=== PATIENT | female | born 1975 | race Caucasian/White ===

== ENCOUNTER 2024-10-12 15:34 | Outpatient (REF) | payer OTHER, SELFPAY ==
--- OUTSIDE RECORDS SUMMARY | 2024-10-12 15:40 | XMS_ITS | Encounter Summary ---
Author Organization [facility] Address [address] [place] [address] Care Team Providers Care Satellite Project Site Monitor Name Role Phone Cris Rivera MD Primary Care Provider [phone] Reason for Visit * Reason Onset Date Comments Medication 06/05/2022 Encounter Details Date Type Department Care Team Description 06/05/2022 Refill Gastroenterology [facility] [address] [facility] [address] [place] [id number] Santy Borjas MD Medication Social History Tobacco Use Types Packs/Day Years Used Date Smoking Tobacco: Every Day Cigarettes 0.8 15 Smokeless Tobacco: Never Comments:Advised to quit by Dr. Chen on 11/07/2007 & 9.. Alcohol Use Standard Drinks/Week Comments Yes 0 (1 standard drink = 0.6 oz pur e alcohol) history abuse Alcohol Habits Answer Date Recorded How often do you have a drink containing alcohol ? Never 06/06/2021 How many drinks containing a lcohol do you have on a typical day when you are drinking? 5 or 6 06/06/2021 How often do you have six or more drinks on one occasion? Never 06/06/2021 Social Isolation Answer Date Recorded In a typical week, how many times do you talk on the phone with family, friends, or neighbors? More than three times a week 06/06/2021 How often do you get togethe r with friends or relatives? More than three times a week 06/06/2021 How often do you attend [facility] or [facility] day services? Never 06/06/2021 Do you belong to any clubs o r organizations such as congregational groups, unions, fraternal or athletic groups, or school groups? No 06/06/2021 How often do you attend meet ings of the clubs or organizations you belong to? Never 06/06/2021 Are you now , , , , never or living with a partner? 06/06/2021 Physical Activity Answer Date Recorded On average, how many days pe r week do you engage in moderate to strenuous exercise (like walking fast, running, jogging, dancing, swimming, biking, or other activities that cause a light or heavy sweat)? 0 days 06/06/2021 On average, how many minutes do you engage in exercise at this level? 0 min 06/06/2021 Stress Answer Date Recorded Do you feel stress - tense, restless, nervous, or anxious, or unable to sleep at night because your mind is troubled all the time - these days? Rather much 06/06/2021 Financial Resource Strain Answer Date R ecorded How hard is it for you to pa y for the very basics like food, housing, medical care, and heating? Not very hard 06/06/2021 Intimate Partner Violence Answer Date R ecorded Within the last year, have y ou been afraid of your partner or ex-partner? No 06/06/2021 Within the last year, have y ou been humiliated or emotionally abused in other ways by your partner or ex-partner? No Within the last year, have y ou been kicked, hit, slapped, or otherwise physically hurt by your partner or ex-partner? No 06/06/2021 Within the last year, have y ou been raped or forced to have any kind of sexual activity by your partner or ex-partner? No 06/06/2021 Food Insecurity Answer Date Recorded Within the past 12 months, y ou worried that your food would run out before you got money to buy more. Never true 06/06/2021 Within the past 12 months, t he food you bought just didn't last and you didn't have money to get more. Never true 06/06/2021 Transportation Needs Answer Date Record ed In the past 12 months, has l ack of transportation kept you from medical appointments or from getting medications? No 05/27 In the past 12 months, has l ack of transportation kept you from meetings, work, or getting things needed for daily living? No 06/06/2021 Housing Stability Answer Date Recorded In the last 12 months, was t here a time when you were not able to pay the mortgage or rent on time? No 06/06/2021 In the last 12 months, how many places have you lived? Not asked In the last 12 months, was t here a time when you did not have a steady place to sleep or slept in a [facility] (including now)? No 06/06/2021 Sex Assigned at Date Recorded Not on file Job Start Date Occupation Industry Not on file Not on file Not on file COVID-19 Exposure Response Date Recorded In the last 10 days, have yo u been in contact with someone who was confirmed or suspected to have Coronavirus/COVID-19? No / Unsure 2022 8:46 AM EST documented as of this encounter Plan of Treatment Not on file documented as of this encounter Visit Diagnoses Not on filedocumented in this encounter Care Teams Satellite Project Site Monitor Relationship Specialty Start Date End Date Cris Rivera MD [address] [place] [address] PCP - General 10/23/07 documented as of this encounter
--- OUTSIDE RECORDS SUMMARY | 2024-10-12 15:40 | XMS_ITS | Encounter Summary ---
Author Organization [facility] Address [address] [place] [address] Care Team Providers Care Yoga Instructor Name Role Phone Cris Rivera MD Primary Care Provider [phone] [phone] Encounter Details Date Type Department Care Team Description 08/07/2021 SCAN Medical Records [address] [place] [address] Abstract, Provider Incomplete defecation; Pelvic floor weakness in female Social History Tobacco Use Types Packs/Day Years [...] week 06/06/2021 How often do you attend [facility] or church services? Never 06/06/2021 Do you belong to any clubs o r organizations such as restorationist groups, unions, fraternal or athletic groups, or [...] place to sleep or slept in a retirement (including now)? No 06/06/2021 Sex Assigned at Date Recorded Not on file Job Start Date Occupation Industry Not on file Not on file Not on file COVID-19 Exposure Response Date Recorded In the last month, have you been in contact with someone who was confirmed or suspected to have Coronavirus / COVID-19? No / Unsure 07/27/2021 9:14 AM EST documented as of this encounter Plan of Treatment Not on file documented as of this encounter Procedures Procedure Name Priority Date/Time Associated Diagnosis Comments DEFECOGRAPHY (DYNAMIC RECTAL EXAMINATION) Routine 07/11/2021 Incomplete defecation Pelvic floor weakness in female documented in this encounter Results * DEFECOGRAPHY (DYNAMIC RECTAL EXAMINATION) (07/11/2021) Santy Borjas MD OUTSIDE RADIOLOGY documented in this encounter Visit Diagnoses Diagnosis Incomplete defecation Pelvic floor weakness in female Other specified genital prolapse documented in this encounter Care Teams Yoga Instructor Relationship Specialty Start Date End Date Cris Rivera MD [address] [place] [address] PCP - General 10/23/07 documented as of this encounter
--- OUTSIDE RECORDS SUMMARY | 2024-10-12 15:40 | XMS_ITS | Clinical Summary ---
Author Organization [facility] Address [address] [place] [address] Care Team Providers Care Front Desk Administrator Name Role Phone Cris Rivera MD Primary Care Provider [phone] [phone] Allergies No known active allergies Medications Medication Sig Dispensed Refills Start Date End Date Status MULTI-VITAMIN OR 1 daily 0 Active Acyclovir (ZOVIRAX) 5 % Cream Apply topically to affected area twice daily 15 g 2 09/24/2014 Active levonorgestrel (MIRENA) 20 MCG/24HR IUDIndications:Enco unter for insertion of intrauterine contraceptive device 1 Each by Intrauterine route Once. 1 Each 0 07/27/2021 07/01/2026 Active ALBUTEROL SULFATE 108 (90 Base) MCG/ACT Aero Soln Inhale 2 Puffs into the lungs every 4 hours as needed for Cough or Wheezing. 8.5 g 2 06/24/2023 Active clotrimazole-betame thasone (Lotrisone) cream Apply to area sparingly twice a day for up to two weeks 30 g 0 07/16/2023 Active atorvastatin (LIPITOR) 10 MG tablet Take 1 Tablet by mouth daily. 0 Active Zoster Vac Recomb Adjuvanted (Shingrix) 50 MCG/0.5ML Recon Susp Inject 1 Dose into the muscle Once. 1 Each 0 07/23/2023 Active Coenzyme Q10 (COQ-10 OR) Take by mouth. 0 Active fluticasone 50 MCG/ACT nasal spray 2 Sprays by Each Nare route daily for 360 days. 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 Family history of colonic polyps 022 History of alcohol abuse 06/06/2021 History of COVID-19 06/06/2021 Overview: May 01 2021 Hyperlipidemia 06/06/2021 Overview: ASCVD 6.1% 06/06/2021 Hypertension 04/18/2020 History of dysplastic nevus 07/20/2019 Overview: Dysplastic nevus 07/16 abdomen (moderate atypia) Fatty liver 01/14/2019 Overview: CT scan 01/08/2019 Elevation LFTs 04/2020 Family history of hemochromatosis 2013 Family history of breast cancer in male 04/04/2012 Overview: 04/09 - negative genetic screening of the patient Tobacco abuse 04/29/2009 Resolved Problems Problem Noted Date Resolved Date Anemia of 04/13/2008 07/22/2008 Supervision of other normal 11/07/2007 07/22/2008 Overview: 1. Delivery site: [facility]. [facility] 2. 08/01 ASCUS- neg HPV ; 10/01 colpo results pending, REPap post 3. 03/31/08 Flu vaccine 4. 04/13/08 Anemia-start ferrous gluconate once daily IMO update Papanicolaou smear of cervix with atypical squamous cells of undetermined significance (ASC-US) 03/29/2009 Immunizations Name Administration Dates Next Due COVID-19 (Pfizer) 03/13/2024, 2,10/15/2020, 021 COVID-19 (Pfizer) Pt Reported 10/15/2020, 021 Flu (Generic) 02/22/2011,04/29/2009,03/31/2008 Influenza (> 6 Months) 03/13/2024,2010,04/29/2009, 008 Influenza Vaccine-preservati ve Free-quadrivalent 4 Years 06/06/2021,02/09/2019 Shingrix (Recombinant zoster vaccine) 03/13/2024 Tdap 06/06/2021,11/30/2010 Family History * Patient is adopted Medical History Relation Name Comments No Known Problems Brother Cholesterol Level Father Hypertension Father Thyroid Disorder Father heart disease Father Stroke Maternal Grandfather at 50 Dementia Maternal Grandmother at 74 Diabetes Maternal Grandmother everybo dy on mother's side have dm, except mother Cancer, Other Mother cervical cance r Cholesterol Level Mother Diabetes Mother Hypertension Mother Emphysema Paternal Grandfather in his 60s Hypertension Paternal Grandfather CHF Paternal Grandmother of Mi at 65 CA Breast Uncle 1 ma male breast cancer Uncle 1 ma maternal uncle ~ 50 Melanoma Uncle 2 another materna l uncle in his 60s CA Colon Negative Hx CA Ovarian Negative Hx CA Prostate Negative Hx CA of Pancreas Negative Hx Uterine Cancer Negative Hx Relation Name Status Comments Brother Alive three half brot hers Father Alive Maternal Grandfather Maternal Grandmother Mother Alive Paternal Grandfather Paternal Grandmother Son 1 Alive Son 2 Alive Uncle 1 ma Alive Uncle 2 Social History Tobacco Use Types Packs/Day Years Used Date Smoking Tobacco: Every Day Cigarettes 0.8 15 Smokeless Tobacco: Never Tobacco Cessation:Ready to Q uit: Not Asked; Counseling Given: Not Answered Comments:Advised to quit by Dr. Chen on 11/07/2007 & . Alcohol Use Standard Drinks/Week Comments Not Currently 0 (1 standard drink = 0.6 oz pur e alcohol) 07/16/23: 2 months sober Alcohol Habits Answer Date Recorded How often [...] week 06/06/2021 How often do you attend [facility] or hindu services? Never 06/06/2021 Do you belong to any clubs o r organizations such as quaker groups, unions, [employer] or athletic groups, or school groups? No [...] place to sleep or slept in a residential (including now)? No 06/06/2021 Sex Assigned at Date Recorded Not on file Job Start Date Occupation Industry Not on file Not on file Not on file Last Filed Vital Signs Vital Sign Reading Time Taken Comments Blood Pressure 138/74 03/27/2024 8:59 AM EDT Pulse 99 03/27/2024 8:59 AM EDT Temperature 36.8 ??C (98.3 ??F) 01/07/2024 3:31 PM ED T Respiratory Rate 14 06/24/2023 1:27 PM EST Oxygen Saturation 97% 03/27/2024 8:59 AM EDT Inhaled Oxygen Concentration - - Weight 59.1 kg (130 lb 3.2 oz) 03/27/2024 8:59 A M EDT Height 154.9 cm (5' 1 ) 03/27/2024 8:59 AM EDT Body Mass Index 24.6 03/27/2024 8:59 AM EDT Plan of Treatment Health Maintenance Due Date Last Done Comments COLON CANCER SCREENING 2023 MAMMOGRAM 04/13/2024 04/13/2023, 03/27, 04/05/2021, Additional history exists TOBACCO CHECK/ADVISE 04/25/2024 04/25/2022, 08/22/2020, 07/23/2020, Additional history exists Covid-19 Vaccine (2022-2 4 season) 2024 03/13/2024, 06/23/2021, 10/15/2020, Additional history exists SHINGLES VACCINE (2 of 2) 05/08/2024 03/13/2024 DEPRESSION SCREENING/FOLLOWUP 05/27/2024, 06/06/2021 (Completed), 04/28/2021, Additional history exists SOCIAL NEEDS SCREENING 05/27/2024 06/06/2021 (Comple robert) CERVICAL CANCER SCREENING 04/12/20252019, 09/11/2013, 02/22/2011, Additional history exists BASELINE HEALTH EXAM 40-64 07/01/202507/01, 06/24/2023, 06/06/2021, Additional history exists CHOLESTEROL SCREENING 07/01/2028 07/01/2023 , 12/21/2022, 2022, Additional history exists DTAP/TDAP/TD (3 - Td or Tdap) 06/06/2031 06/06/2021, 11/30/2010 PNEUMOCOCCAL VACCINE FOR HIG H RISK PATIENTS (#1) 2038 INFLUENZA Completed 03/13/2024, 05/27, 04/18/2020 (External Completion of Vaccination per patient), Additional history exists Care Teams Front Desk Administrator Relationship Specialty Start Date End Date Cris Rivera, [address] [place] [address] PCP - General 10/23/07
--- OUTSIDE RECORDS SUMMARY | 2024-10-12 15:40 | XMS_ITS | Encounter Summary ---
Author Organization [facility] Address [address] [place] [address] Care Team Providers Care Exceptional Children Teacher Assistant Name Role Phone Cris Rivera MD Primary Care Provider [phone] [phone] Encounter Details Date Type Department Care Team Description 03/07/2022 Orders Only Bariatric Surgery - [place] [address] [facility] [address] [place] [address] Donna Collins MD [address] [facility] [address] [place] [address] Abscess, rectum Social History Tobacco Use Types Packs/Day Years [...] week 06/06/2021 How often do you attend chur ch or roman catholic services? Never 06/06/2021 Do you belong to any clubs o r organizations such as religion groups, unions, fraternal or athletic groups, or [...] place to sleep or slept in a group home (including now)? No 06/06/2021 Sex Assigned at Date Recorded Not on file Job Start Date Occupation Industry Not on file Not on file Not on file COVID-19 Exposure Response Date Recorded In the last 10 days, have yo u been in contact with someone who was confirmed or suspected to have Coronavirus/COVID-19? No / Unsure 02/22/2022 9:13 AM EDT documented as of this encounter Plan of Treatment Not on file documented as of this encounter Procedures Procedure Name Priority Date/Time Associated Diagnosis Comments MRI PELVIS; W/WO CONTRAST MAT Routine 03/05/2022 Abscess, rectum documented in this encounter Results * MRI PELVIS; W/WO CONTRAST MAT (03/05/2022) Donna Collins MD MRI Performing Organization Address City/State/[facility] Co de Phone Number [address] documented in this encounter Visit Diagnoses Diagnosis Abscess, rectum Abscess of anal and rectal regions documented in this encounter Care Teams Exceptional Children Teacher Assistant Relationship Specialty Start Date End Date Cris Rivera MD [address] [place] [address] PCP - General 10/23/07 documented as of this encounter
--- OUTSIDE RECORDS SUMMARY | 2024-10-12 15:40 | XMS_ITS | Encounter Summary ---
Author Organization [facility] Address [address] [place] [address] Care Team Providers Care Line Clearance Foreman Name Role Phone Cris Rivera MD Primary Care Provider [phone] [phone] Reason for Visit * Reason Onset Date Comments Form 08/02/2022 Encounter Details Date Type Department Care Team Description 08/02/2022 Telephone Gastroenterology - [place] [address] [facility] [address] [place] [address] Santy Borjas MD Form Social History Tobacco Use Types Packs/Day Years [...] week 06/06/2021 How often do you attend [facility] or mormonism services? Never 06/06/2021 Do you belong to any clubs o r organizations such as yarsani groups, unions, fraternal or athletic groups, or [...] place to sleep or slept in a penitentiary (including now)? No 06/06/2021 Sex Assigned at Date Recorded Not on file Job Start Date Occupation Industry Not on file Not on file Not on file COVID-19 Exposure Response Date Recorded In the last 10 days, have yo u been in contact with someone who was confirmed or suspected to have Coronavirus/COVID-19? No / Unsure 07/16/2022 2:20 PM EST documented as of this encounter Miscellaneous Notes * Telephone Encounter - Elise uSn - 08/02/2022 3:32 PM EST Patient calling checking on the status of FMLA form, please advise and call when ready for meat pickler. documented in this encounter Plan of Treatment Not on file documented as of this encounter Visit Diagnoses Not on filedocumented in this encounter Care Teams Line Clearance Foreman Relationship Specialty Start Date End Date Cris Rivera MD [address] [place] [address] PCP - General 10/23/07 documented as of this encounter
--- OUTSIDE RECORDS SUMMARY | 2024-10-12 15:40 | XMS_ITS | Encounter Summary ---
Author Organization [facility] Address [address] [place] [address] Care Team Providers Care Pellet Preparation Operator Name Role Phone Cris Rievra MD Primary Care Provider [phone] [phone] Encounter Details Date Type Department Care Team Description 06/19/2022 Hospital Medical Records [address] [place] [address] Santy Borjas MD Social History Tobacco Use Types Packs/Day Years Used Date Smoking Tobacco: Every Day Cigarettes 0.8 15 Smokeless Tobacco: Never Comments:Advised to quit by Dr. Chen on 11/07/2007 & 9.. Alcohol Use Standard Drinks/Week Comments Not Currently [...] week 06/06/2021 How often do you attend [facility] or adventist services? Never 06/06/2021 Do you belong to any clubs o r organizations such as mu-ism groups, unions, fraternal or athletic groups, or [...] on filedocumented in this encounter Care Teams Pellet Preparation Operator Relationship Specialty Start Date End Date Cris Rivera MD [address] [place] [address] PCP - General 10/23/07 documented as of this encounter
--- OUTSIDE RECORDS SUMMARY | 2024-10-12 15:40 | XMS_ITS | Encounter Summary ---
Author Organization [facility] Address [address] [place] [address] Care Team Providers Care Wildlife Biology Technician Name Role Phone Cris Rivera MD Primary Care Provider [phone] Reason for Visit * Reason Comments E-prescribe Rx Request Encounter Details Date Type Department Care Team Description 05/10/2020 Refill Adult Medicine [facility] [address] [place] [address] Carli Aranda PA-C E-prescribe Rx Request Social History Tobacco Use Types Packs/Day Years Used Date Smoking Tobacco: Every Day Cigarettes 0.5 15 Smokeless Tobacco: Never Comments:Advised to quit by Dr. Chen on 11/07/2007 & 9.. Alcohol Use Standard Drinks/Week Comments Yes 0 (1 standard drink = 0.6 oz pur e alcohol) 10 drinks per week Alcohol Habits Answer Date Recorded How often [...] week 06/06/2021 How often do you attend [facility] or mormonism services? Never 06/06/2021 Do you belong to any clubs o r organizations such as buddhist groups, unions, fraternal or athletic groups, or [...] place to sleep or slept in a [place] [facility] (including now)? No 06/06/2021 Sex Assigned at Date Recorded Not on file Job Start Date Occupation Industry Not on file Not on file Not on file COVID-19 Exposure Response Date Recorded In the last month, have you been in contact with someone who was confirmed or suspected to have Coronavirus / COVID-19? No / Unsure 04/18/2020 8:44 AM EST documented as of this encounter Miscellaneous Notes * Telephone Encounter - Zuleika Nichole - 05/13/2020 4:29 PM EST Pt booked 05/16 in office carli * Telephone Encounter - Farrah Rendon - 05/11/2020 11:33 AM EST Patient would like script to be: E-PRESCRIBED/FAXED TO PHARMACY WHEN WAS THE PATIENT'S LAST APPOINTMENT IN ADULT MEDICINE? 04/18/2020 WHEN WAS THE LAST TIME THE PATIENT SAW THEIR PCP? Same as above Does patient have an upcoming appointment? No-unable to reach left [facility] to call for appointment due to refill request. (THE MEDICATION REQUESTED IS ON THE MED LIST ABOVE) All of the medications requested were on the CURRENT MEDS list Did you check the Pharmacy information above?: YES Patient wants: 30 -day supply Is this a mail order prescription request ? NO If the refill is from a FAXED refill request what is the RX # listed on the fax? N/A Patients current insurance carrier is: Payor: [employer] [facility] / Plan: CC-HEIDI SILVER TYPE 3 / Product Type: HMO [id number] documented in this encounter Plan of Treatment Not on file documented as of this encounter Visit Diagnoses Not on filedocumented in this encounter Care Teams Wildlife Biology Technician Relationship Specialty Start Date End Date Cris Rivera MD [address] [place] [address] PCP - General 10/23/07 documented as of this encounter
--- OUTSIDE RECORDS SUMMARY | 2024-10-12 15:40 | XMS_ITS | Encounter Summary ---
Author Organization [facility] Address [address] [place] [address] Care Team Providers Care Head Of Measurement & Insights Name Role Phone Cris Rivera MD Primary Care Provider [phone] Reason for Visit * Reason Onset Date Comments radiology 06/15/2021 defecogram Encounter Details Date Type Department Care Team Description 06/15/2021 Telephone Gastroenterology - [place] [address] [facility] [address] [place] [phone] Santy Borjas MD radiology (defecogram) Social History Tobacco Use Types Packs/Day Years [...] week 06/06/2021 How often do you attend [facility] or pentecostalism services? Never 06/06/2021 Do you belong to any clubs o r organizations such as scientology groups, unions, fraternal or athletic groups, or [...] place to sleep or slept in a alf (including now)? No 06/06/2021 Sex Assigned at Date Recorded Not on file Job Start Date Occupation Industry Not on file Not on file Not on file COVID-19 Exposure Response Date Recorded In the last month, have you been in contact with someone who was confirmed or suspected to have Coronavirus / COVID-19? No / Unsure 06/15/2021 10:31 AM EST documented as of this encounter Miscellaneous Notes * Telephone Encounter - Adelaida Ramírez - 06/15/2021 11:52 AM EST Left message for patient advising her that her defecogram has been scheduled for 07/11/2021 with a 10:30 AM arrival at [address] I asked she call back to schedule a follow up a week after to discuss results. documented in this encounter Plan of Treatment Not on file documented as of this encounter Visit Diagnoses Not on filedocumented in this encounter Care Teams Head Of Measurement & Insights Relationship Specialty Start Date End Date Cris Rivera MD [address] [place] [address] PCP - General 10/23/07 documented as of this encounter
--- OUTSIDE RECORDS SUMMARY | 2024-10-12 15:40 | XMS_ITS | Encounter Summary ---
Author Organization [facility] Address [address] [place] [address] Care Team Providers Care Coconut Jelly Roller Name Role Phone Cris Rivera MD Primary Care Provider [phone] [phone] Encounter Details Date Type Department Care Team Description 06/26/2019 Transfer Records Medical Records [address] [place] [address] Abstract, Provider Social History Tobacco Use Types Packs/Day Years [...] 06/06/2021 How often do you attend chur or baptism services? Never 06/06/2021 Do you belong to any clubs o r organizations such as islam groups, unions, fraternal or athletic groups, or [...] place to sleep or slept in a halfway (including now)? No 06/06/2021 Sex Assigned at Date Recorded Not on file Job Start Date Occupation Industry Not on file Not on file Not on file documented as of this encounter Plan of Treatment Not on file documented as of this encounter Visit Diagnoses Not on filedocumented in this encounter Care Teams Coconut Jelly Roller Relationship Specialty Start Date End Date Cris Rivera MD [address] [place] [address] PCP - General 10/23/07 documented as of this encounter
--- OUTSIDE RECORDS SUMMARY | 2024-10-12 15:40 | XMS_ITS | Encounter Summary ---
Author Organization [facility] Address [address] [place] [address] Care Team Providers Care Reed Press Feeder Name Role Phone Cris Rivera MD Primary Care Provider [phone] [phone] Encounter Details Date Type Department Care Team Description 07/02/2023 Orders Only Medical Records [address] [place] [address] Angel Garcia PA-C Social History Tobacco Use Types Packs/Day Years Used Date Smoking Tobacco: Every Day Cigarettes 0.8 15 Smokeless Tobacco: Never Comments:Advised to quit by Dr. Chen on 11/07/2007 & 9.. Alcohol Use Standard Drinks/Week Comments Yes 0 (1 standard drink = 0.6 oz pur e alcohol) currently daily/ history abuse Alcohol Habits Answer Date Recorded [...] week 06/06/2021 How often do you attend [facility] or adventist services? Never 06/06/2021 Do you belong to any clubs o r organizations such as zoroastrian groups, unions, fraternal or athletic groups, or [...] place to sleep or slept in a long term (including now)? No 06/06/2021 Sex Assigned at Date Recorded Not on file Job Start Date Occupation Industry Not on file Not on file Not on file documented as of this encounter Plan of Treatment Not on file documented as of this encounter Procedures Procedure Name Priority Date/Time Associated Diagnosis Comments OUTSIDE CT Routine 07/02/2023 documented in this encounter Results * OUTSIDE CT (07/02/2023) Angel Garcia PA-C RADIOLOGY documented in this encounter Visit Diagnoses Not on filedocumented in this encounter Care Teams Reed Press Feeder Relationship Specialty Start Date End Date Cris Rivera MD [facility] [address] PCP - General 10/23/07 documented as of this encounter
--- OUTSIDE RECORDS SUMMARY | 2024-10-12 15:40 | XMS_ITS | Encounter Summary ---
Author Organization [facility] Address [address] [place] [address] Care Team Providers Care Store Sales Leader Name Role Phone Cris Rivera MD Primary Care Provider [phone] [phone] Encounter Details Date Type Department Care Team Description 07/26/2023 Orders Only Medical Records [address] [place] [address] Abstract, Provider Social History Tobacco Use Types [...] week 06/06/2021 How often do you attend [facility] or jehovah's witness services? Never 06/06/2021 Do you belong to any clubs o r organizations such as mormonism groups, unions, fraternal or athletic groups, or [...] place to sleep or slept in a fdc (including now)? No 06/06/2021 Sex Assigned at Date Recorded Not on file Job Start Date Occupation Industry Not on file Not on file Not on file documented as of this encounter Plan of Treatment Not on file documented as of this encounter Procedures Procedure Name Priority Date/Time Associated Diagnosis Comments OUTSIDE LAB Routine 07/01/2023 documented in this encounter Results * OUTSIDE LAB (07/01/2023) Provider Abstract LAB documented in this encounter Visit Diagnoses Not on filedocumented in this encounter Care Teams Store Sales Leader Relationship Specialty Start Date End Date Cris Rivera MD [facility] [place] [address] PCP - General 10/23/07 documented as of this encounter
--- OUTSIDE RECORDS SUMMARY | 2024-10-12 15:40 | XMS_ITS | Encounter Summary ---
Author Organization [facility] Address [address] [place] [address] Care Team Providers Care Label Stamper Name Role Phone Cris Rivera MD Primary Care Provider [phone] Encounter Details Date Type Department Care Team Description 11/22/2021 Hospital Medical Records [address] [place] [address] Rachell Smith, YUMIKO [address] [place] [phone] Social History Tobacco Use Types Packs/Day Years [...] week 06/06/2021 How often do you attend [facility] or jehovah's witness services? Never 06/06/2021 Do you belong to any clubs o r organizations such as amish groups, unions, fraternal or athletic groups, or [...] place to sleep or slept in a skilled nursing (including now)? No 06/06/2021 Sex Assigned at Date Recorded Not on file Job Start Date Occupation Industry Not on file Not on file Not on file COVID-19 Exposure Response Date Recorded In the last 10 days, have yo u been in contact with someone who was confirmed or suspected to have Coronavirus/COVID-19? No / Unsure 11/14/2021 9:12 AM EDT documented as of this encounter Plan of Treatment Not on file documented as of this encounter Visit Diagnoses Not on filedocumented in this encounter Care Teams Label Stamper Relationship Specialty Start Date End Date Cris Rivera MD [address] [place] [address] PCP - General 10/23/07 documented as of this encounter
--- OUTSIDE RECORDS SUMMARY | 2024-10-12 15:40 | XMS_ITS | Encounter Summary ---
Author Organization [facility] Address [address] [place] [address] Care Team Providers Care Vba Programmer Name Role Phone Cris Rivera MD Primary Care Provider [phone] Reason for Visit * Reason Onset Date Comments er follow up 07/02/2023 Encounter Details Date Type Department Care Team Description 07/02/2023 Telephone Adult Medicine - [place] [address] [place] [address] Cris Rivera, [address] [place] [address] er follow up Social History Tobacco Use Types Packs/Day Years [...] often do you attend chur ch or islam services? Never 06/06/2021 Do you belong to any clubs o r organizations such as hindu groups, unions, fraternal or athletic groups, or [...] place to sleep or slept in a nursing home (including now)? No 06/06/2021 Sex Assigned at Date Recorded Not on file Job Start Date Occupation Industry Not on file Not on file Not on file documented as of this encounter Miscellaneous Notes * Telephone Encounter - Desi Duron M.A. - 07/04/2023 9:46 AM EST Notes obtain and given to provider desk * Telephone Encounter - Zuleika Orozco - 07/02/2023 9:56 AM EST ER follow-up appointment booked YES 07/23/2023 If ER or UC follow up, can be booked with APC or MD. If hospital admission follow up MUST be booked with a physician Appointment time: 2:15AM Provider visit is scheduled with:[facility] at: [facility] Date of visit: 07/23/2023 Was this only an ER/UC visit or was the patient admitted to the hospital? ER visit onlyER visit only If patient was admitted what was the date of discharge? N/A Reason/diagnosis for visit or stay: abdomainla pain Was visit or stay related to an injury? NO If yes, what was the date of injury (DOI)? N/A If yes, was the injury due to N/A Tests performed: Lab: YES X-ray: YES EKG: YES Other tests. If yes, what?; CT urine documented in this encounter Plan of Treatment Not on file documented as of this encounter Visit Diagnoses Not on filedocumented in this encounter Care Teams Vba Programmer Relationship Specialty Start Date End Date Cris Rivera MD [address] [place] [address] PCP - General 10/23/07 documented as of this encounter
--- OUTSIDE RECORDS SUMMARY | 2024-10-12 15:40 | XMS_ITS | Encounter Summary ---
Author Organization [facility] Address [address] [place] [address] Care Team Providers Care Coin Box Inspector Name Role Phone Cris Rivera MD Primary Care Provider [phone] Encounter Details Date Type Department Care Team Description 04/10/2022 Orders Only Medical Records [address] [place] [address] Cris Rivera, [address] [place] [address] Social History Tobacco Use Types Packs/Day Years [...] week 06/06/2021 How often do you attend [facility] or baptism services? Never 06/06/2021 Do you belong to any clubs o r organizations such as roman catholic groups, unions, fraternal or athletic groups, or [...] Name Priority Date/Time Associated Diagnosis Comments OUTSIDE MAMMO Routine 04/09/2022 documented in this encounter Results * OUTSIDE MAMMO (04/09/2022) Cris Rivera MD RADIOLOGY documented in this encounter Visit Diagnoses Not on filedocumented in this encounter Care Teams Coin Box Inspector Relationship Specialty Start Date End Date Cris Rivera MD [facility] [place] [address] PCP - General 10/23/07 documented as of this encounter
--- OUTSIDE RECORDS SUMMARY | 2024-10-12 15:40 | XMS_ITS | Encounter Summary ---
Author Organization [facility] Address [address] [place] [address] Care Team Providers Care Construction Rigger Name Role Phone Cris Rivera MD Primary Care Provider [phone] Reason for Referral * EXTERNAL (Routine) - Authorized/Booked Specialty Diagnoses / Procedures Referred By Contac t Referred To Contact Oncology/Hematology Procedures REFERRAL TO ONCOLOGY/HEMATOLOGY (IN NETWORK) Mita Bryson PA-C [address], [place] Center, [facility] Cancer [address] [place] [address] Referral ID Status Reason Start Date Expiration Date V isits Requested Visits Authorized [id number] Authorized/B ooked 06/11/2022 09/10/2022 1 1 Encounter Details Date Type Department Care Team Description 2022 Telephone Medicine/Pediatrics - [address] [phone] Mita Bryson PA-C [address], [place] Social History Tobacco Use Types Packs/Day Years [...] week 06/06/2021 How often do you attend [facility] or restoration services? Never 06/06/2021 Do you belong to any clubs o r organizations such as jewish groups, unions, fraternal or athletic groups, or [...] place to sleep or slept in a long-term (including now)? No 06/06/2021 Sex Assigned at [...] * Telephone Encounter - Zuleika Nichole - 06/12/2022 3:24 PM EST Pt is calling pt informed PLEASE call patient and advise ?? Your cholesterol including your triglyerides and LDL which is the bad choelsterol continue to be high even though you were fasting. ?? Due to this going to start you on lipitor 10mg. Sent to pharmacy. sometimes people get muscle aches, if this occurs can take an over the counter supplement called co-q-10 enzyme. can also take it at night if gets muscle aches. Lets repeat lab again in 2-3 months. ?? I have also referred you to hematology to discuss concern for hemachromotosis. ?? Remember to please cut down on your drinking. Pt states she has already picked the meds up for this and is aware and does not need a call back * Telephone Encounter - Shelia Resendiz M.A. - 06/12/2022 11:05 AM EST Left message for patient to return our call regarding message below. * Telephone Encounter - Mita Bryson PA-C - 06/11/2022 5:41 PM EST PLEASE call patient and advise Your cholesterol including your triglyerides and LDL which is the bad choelsterol continue to be high even though you were fasting. Due to this going to start you on lipitor 10mg. Sent to pharmacy. sometimes people get muscle aches, if this occurs can take an over the counter supplement called co-q-10 enzyme. can also take it at night if gets muscle aches. Lets repeat lab again in 2-3 months. I have also referred you to hematology to discuss concern for hemachromotosis. Remember to please cut down on your drinking. * Telephone Encounter - Maria C Pratt - 06/11/2022 2:39 PM EST Pt fasted for her cholesterol and does have some drinks but not as many as before - pt will go to hematology * Telephone Encounter - Shelia Resendiz M.A. - 06/11/2022 1:46 PM EST Left message for patient to return our call regarding message below. * Telephone Encounter - Shelia Resendiz M.A. - 06/08/2022 2:31 PM EST Left message for pt to return our call regarding message below. * Telephone Encounter - Mita Bryson PA-C - 2022 4:19 PM EST Please call patient and advise that they did not do the hemochromatosis labs as apparently needed aprior auth which I am not sure how that works so Once get information on that can re order if needed. Please find out if patient was fasting as her triglyeriedes were very high. If she wanst fasting then I would like her to return fasting to get an accurrate cholesterol.- PLEASE LET ME KNOW IF WAS FASTING OR NOT so I can reorder lipids. Ask patient if she is still drinking as her liver enzymes are still slightly elevated. There is no anemia and iron levels were elevated. It is possible she may have hemochromatosis so ifdont get lab test authorized can always just refer to hematology to have this followed up on if patient wants. documented in this encounter Plan of Treatment Not on file documented as of this encounter Results * (ABNORMAL) CHG LIPID PANEL (12/21/2022 10:13 AM EDT) [facility] Cholesterol 186 0 - 200 mg/dL 12/21/2022 12:08 PM EDT [facility] HDL CHOLESTEROL 75 >40 mg/dL 12:08 PM EDT [facility] TC-HDLC RATIO 2.5 0 - 4.4 mg/dL 12/21/2022 12:08 PM EDT [facility] TRIGLYCERIDES 461(H) 0 - 150 mg/dL 12/21/2022 12:14 PM EDT [facility] LDL CALCULATED 19 0 - 100 mg/dL 12/21/2022 12:14 PM EDT [facility] 12/21/2022 10:1 3 AM EDT 12/21/2022 10:13 AM EDT Narrative [facility] - 12/21/2022 12:14 PM EDT Release to patient->Immediate Mita Bryson PA-C LAB [facility] documented in this encounter Visit Diagnoses Diagnosis Hyperlipidemia, unspecified hyperlipidemia type- Primary Hypertension, unspecified type Hyperlipidemia, unspecified hyperlipidemia type documented in this encounter Care Teams Construction Rigger Relationship Specialty Start Date End Date Cris Rivera MD [address] [place] [address] PCP - General 10/23/07 documented as of this encounter
--- OUTSIDE RECORDS SUMMARY | 2024-10-12 15:40 | XMS_ITS | Encounter Summary ---
Author Organization [facility] Address [address] [place] [address] Care Team Providers Care Owner/Photographer Name Role Phone Cris Rivera MD Primary Care Provider [phone] [phone] Encounter Details Date Type Department Care Team Description 03/16/2009 Hospital Medical Records [address] [place] [address] Ricky Chen MD Social History Tobacco Use Types Packs/Day [...] 06/06/2021 How often do you attend [facility] or uatsdin services? Never 06/06/2021 Do you belong to [...] place to sleep or slept in a mcc (including now)? No 06/06/2021 Sex Assigned at Date Recorded Not on file Job Start Date Occupation Industry Not on file Not on file Not on file documented as of this encounter Plan of Treatment Not on file documented as of this encounter Visit Diagnoses Not on filedocumented in this encounter Care Teams Owner/Photographer Relationship Specialty Start Date End Date Cris Rivera MD [address] [place] [address] PCP - General 10/23/07 documented as of this encounter
--- OUTSIDE RECORDS SUMMARY | 2024-10-12 15:40 | XMS_ITS | Encounter Summary ---
Author Organization [facility] Address [address] [place] [address] Care Team Providers Care Powderer Name Role Phone Cris Rivera MD Primary Care Provider [phone] [phone] Encounter Details Date Type Department Care Team Description 11/22/2021 Hospital Medical Records [address] [place] [address] Donna Collins MD [address] [place] [phone] Social History Tobacco Use Types Packs/Day Years [...] often do you attend chur ch or advent services? Never 06/06/2021 Do you belong to any clubs o r organizations such as catholic groups, unions, fraternal or athletic groups, [...] on filedocumented in this encounter Care Teams Powderer Relationship Specialty Start Date End Date Cris Rivera MD [address] [place] [address] PCP - General 10/23/07 documented as of this encounter
--- OUTSIDE RECORDS SUMMARY | 2024-10-12 15:40 | XMS_ITS | Encounter Summary ---
Author Organization [facility] Address [address] [place] [address] Care Team Providers Care Card Fixer Name Role Phone Cris Rivera MD Primary Care Provider [phone] [phone] Encounter Details Date Type Department Care Team Description 02/04/2024 Orders Only Medical Records [address] [place], [place] [address] [place] [address] Social History Tobacco Use Types Packs/Day Years [...] week 06/06/2021 How often do you attend [facility] or religion services? Never 06/06/2021 Do you belong to any clubs o r organizations such as yazidi groups, unions, fraternal or athletic groups, or [...] Name Priority Date/Time Associated Diagnosis Comments OUTSIDE PLAIN FILM Routine 02/04/2024 documented in this encounter Results * OUTSIDE PLAIN FILM (02/04/2024) [facility] RADIOLOGY documented in this encounter Visit Diagnoses Not on filedocumented in this encounter Care Teams Card Fixer Relationship Specialty Start Date End Date Cris Rivera MD [facility] [place] [address] PCP - General 10/23/07 documented as of this encounter
--- OUTSIDE RECORDS SUMMARY | 2024-10-12 15:40 | XMS_ITS | Encounter Summary ---
Author Organization [facility] Address [address] [place] [address] Care Team Providers Care Slip Tender Name Role Phone Cris Rivera MD Primary Care Provider +1 [phone] Encounter Details Date Type Department Care Team Description 09/27/2011 Health Services Manager Report Medical Records [address] [place] [address] Destinee Baltazar NP Social History Tobacco Use Types Packs/Day Years Used Date Smoking Tobacco: Every Day Cigarettes 0.5 15 Smokeless Tobacco: Never Comments:Advised to quit by Dr. Chen on 11/07/2007 & 9.. Alcohol Use Standard Drinks/Week Comments Yes 0 (1 standard drink = 0.6 oz pur e alcohol) rare, socially Alcohol Habits Answer Date Recorded How often [...] 06/06/2021 How often do you attend [facility] or oriental orthodox services? Never 06/06/2021 Do you belong to any clubs o r organizations such as hinduism groups, unions, fraternal or athletic groups, or [...] place to sleep or slept in a senior living (including now)? No 06/06/2021 Sex Assigned at Date Recorded Not on file Job Start Date Occupation Industry Not on file Not on file Not on file documented as of this encounter Plan of Treatment Not on file documented as of this encounter Visit Diagnoses Not on filedocumented in this encounter Care Teams Slip Tender Relationship Specialty Start Date End Date Cris Rivera MD [address] [place] [address] PCP - General 10/23/07 documented as of this encounter
--- OUTSIDE RECORDS SUMMARY | 2024-10-12 15:40 | XMS_ITS | Clinical Summary ---
Author Organization [facility] Address [address] [place] [address] Phone Care Team Providers Care Distributor Sales Manager Name Role Phone Janett Rivera MD Primary Care Prov ider Allergies No known active allergies Medications acyclovir (ZOVIRAX) 5 % cream Apply topically to affected area twice daily 09/25/19 15 Active multivit-min/fe rrous fumarate (MULTI VITAMIN ORAL) 1 daily Active levonorgestreL (MIRENA) 21 mcg/24 hr (8 yrs) 52 mg IUD 1 Each by Intrauterine route Once. 07/28/19 22 2026 Active silver sulfADIAZINE (SILVADENE, SSD) 1 % cream Applied to the perianal skin as a thin film twice daily 11/27/19 23 Active fluticasone propionate (FLONASE) 50 mcg/actuation nasal spray 2 Sprays by Each Nare route daily for 360 days Active atorvastatin (LIPITOR) 10 mg tablet TAKE 1 TABLET BY MOUTH EVERY DAY 90 tablet 06/26/19 25 Active albuterol HFA (PROAIR HFA ; PROVENTIL HFA ; VENTOLIN HFA) 90 mcg/actuation inhalerIndicati ons:Tobacco abuse Inhale 1 puff by mouth every 4 (four) hours if needed for wheezing. 6.7 g 11 08/15/19 25 Active PARoxetine (PAXIL) 10 mg tablet Take 1 tablet (10 mg total) by mouth 1 (one) time each day in the morning. 90 each 3 08/21/19 25 2025 Active lisinopriL (PRINIVIL,ZESTR IL) 10 mg tabletIndicatio ns:Essential (primary) hypertension TAKE 1 TABLET BY MOUTH EVERY DAY 90 tablet 1 09/26/19 25 Active lisinopriL (PRINIVIL,ZESTR IL) 10 mg tablet TAKE 1 TABLET BY MOUTH EVERY DAY 08/30/19 24 2024 Discontinued Hospital, Clinic, or Other Facility Administered Medication Ordered Dose Route Frequency Start Date End Date Status dexAMETHasone (PF) (DECADRON) injection 5 mgIndications:Planta r fascial fibromatosis 5 mg IAtc Once 04/14/2024 Active triamcinolone acetonide (KENALOG-40) 40 mg/mL injection 40 mgIndications:Planta r fascial fibromatosis 40 mg IAtc Once 04/14/2024 Active lidocaine (PF) (XYLOCAINE-MPF) 1 % injection 0.5 mLIndications:Planta r fascial fibromatosis .5 mL inj Once PRN Procedure 09/24/2024 09/24/2024 Ended lidocaine (PF) (XYLOCAINE-MPF) 1 % injection 0.5 mLIndications:Planta r fascial fibromatosis .5 mL inj Once PRN Procedure 09/24/2024 09/24/2024 Ended triamcinolone acetonide (KENALOG-40) 40 mg/mL injection 20 mgIndications:Planta r fascial fibromatosis 20 mg IAtc Once PRN Procedure 09/24/2024 09/24/2024 Ended triamcinolone acetonide (KENALOG-40) 40 mg/mL injection 20 mgIndications:Planta r fascial fibromatosis 20 mg IAtc Once PRN Procedure 09/24/2024 09/24/2024 Ended Active Problems Problem Noted Date Diagnosed Date Elevated ferritin 09/30/2024 Intractable back pain 09/30/2024 Spinal stenosis of lumbar re gion without neurogenic claudication 09/30/2024 Prediabetes 07/02/2023 Carrier of hemochromatosis HFE gene mutation Overview (02/25/2024): per heme-monitoring lab work, iron studies and LFT annually. Abnormal serum iron level 09/07/2022 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 History of alcohol abuse 06/06/2021 Hyperlipidemia 06/06/2021 Overview (02/25/2024): ASCVD 6.1% 06/06/2021 Hypertension 04/18/2020 Fatty liver 01/14/2019 Overview (02/25/2024): CT scan 01/08/2019 Elevation LFTs 04/2020 Resolved Problems Problem Noted Date Diagnosed Date Resolved Date Hemochromatosis 09/07/2022 08/14/2024 Encounters Date Type Department Care Team Description 09/30/2024 3:15 PM EDT Office Visit [facility] Hematology Oncology [address] [place] [phone] Joseluis Disla MD 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); Fatty liver; Elevated ferritin; Intractable back pain; Spinal stenosis of lumbar region without neurogenic claudication 09/24/2024 2:45 PM EDT Office Visit Orthopedic Surgery [facility] [address] [phone] George Raya DPM Plantar fascial fibromatosis (Primary Dx); Equinus contracture of ankle; Neuritis 09/02/2024 Telephone [facility] Hematology Oncology [address] [place] [phone] Mary Roca MA 08/20/2024 3:30 PM EDT Office Visit Obstetrics and Gynecology - [address] [phone] José Miguel Myers CNM Encounter for annual routine gynecological examination (Primary Dx); Surveillance for control, intrauterine device 08/19/2024 2:45 PM EDT Office Visit Orthopedic Surgery [facility] [address] [phone] George Raya DPM Plantar fascial fibromatosis (Primary Dx); Equinus contracture of ankle; Bilateral foot pain; Neuritis 08/14/2024 8:30 AM EDT Office Visit Adult Medicine - [place] [address] [place] [phone] Toni Schroeder PA Adult general medical examination (Primary Dx); Carrier of hemochromatosis HFE gene mutation; Primary hypertension; Prediabetes; Mixed hyperlipidemia; Need for vaccination against Streptococcus pneumoniae; Tobacco abuse; Need for hepatitis C screening test 08/13/2024 Telephone [facility] [address] [place] [phone] Lukas Hernandez To complete Pt [facility] Assessment & Offer Resources. 07/15/2024 3:15 PM EST Office Visit Orthopedic Surgery [facility] [address] [facility] [address] [place] [phone] George Raya, DPM Neuritis (Primary Dx); Bilateral foot pain; Plantar fascial fibromatosis; Equinus contracture of ankle from Last 3 Months Immunizations Name Administration Dates Next Due Influenza Quadravalent, MDCK , 0.5ml, preservative free (Flucelvax) 6mo and older 06/06/2021,02/09/2019 Influenza trivalent, 0.5mL, preservative free (Fluarix; FluLaval; Fluzone) ages 6mo and older (Afluria) 3 years and older 03/13/2024 Influenza trivalent, with pr eservative (Fluzone; Afluria) 6mo and older 02/22/2011,04/29/2009,03/31/2008 Pneumococcal conjugate 20 va lent (Prevnar 20, PCV 20) 2mo and older 08/14/2024 Tdap Tetanus diptheria acell ular pertussis (Boostrix; Adacel) 7yo and older 06/06/2021,11/30/2010 Zoster recombinant (Shingrix ) 19yo and older 05/16/2024,03/13/2024 Surgical History Surgery Date Site/Laterality Comments HEMORRHOID SURGERY 03/1998 PROCEDURE: IL INCISION THROMBOSED HEMORRHOID EXTERNAL SECTION 2008 PROCEDURE: IL DELIVERY ONLY TUBAL LIGATION 03/16/2009 PROCEDURE: HISTORICAL TUBAL LIGATION WISDOM TOOTH EXTRACTION PROCEDURE: HISTORICAL WISDOM TEETH EXTRACTION; COMMENT: as a teenager MOLE REMOVAL PROCEDURE: HISTORICAL MOLE (REMOVAL OF); COMMENT: Dysplastic nevus 07/16 abdomen (moderate atypia) OTHER SURGICAL HISTORY 07/03/2022 PROCEDURE: HISTORY OTHER; COMMENT: rectal surgery fistula Medical History Medical History Date Comments Papanicolaou smear of cervix with atypical squamous cells of undetermined significance (ASC-US) 08/01 DX:Papanicolaou sme ar of cervix with atypical squamous cells of undetermined significance (ASC-US); COMMENT: colpo 10/01 Other specified personal his tory presenting hazards to health(V15.89) DX:Other specifie d personal history presenting hazards to health(V15.89) Tobacco abuse 04/29/2009 DX:Tobacco abuse 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; 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 Ovarian cyst, left 09/2014 DX:Ovarian cy st, left History of dysplastic nevus DX:H istory of dysplastic nevus; COMMENT: Dysplastic nevus 07/16 abdomen (moderate atypia) Hypertension 04/18/2020 DX:Hypertension Hyperlipidemia 06/06/2021 DX:Hyperlipidemi a; COMMENT: 06/06/2021 Anal fistula Family History Medical History Relation Name Comments No Known Problems Brother Hyperlipidemia Father Hypertension Father Other: heart disease Father Prostate cancer Father Thyroid disease Father Stroke Maternal Grandfather at 50 Dementia Maternal Grandmother at 74 Diabetes Maternal Grandmother everybo dy on mother's side have dm, except mother Diabetes Mother Hyperlipidemia Mother Hypertension Mother Other cancer Mother cervical cancer Emphysema Paternal Grandfather in his 60s Hypertension Paternal Grandfather Heart failure Paternal Grandmother o f Mi at 65 Breast cancer Uncle 1 ma Other: male breast cancer Uncle 1 ma ma ternal uncle - 50 Melanoma Uncle 2 another materna l uncle in his 60s Colon cancer Neg Hx Ovarian cancer Neg Hx Pancreatic cancer Neg Hx Uterine cancer Neg Hx Relation Name Status Comments Brother Alive three half brot hers Father Alive Maternal Grandfather Maternal Grandmother Mother Alive Paternal Grandfather Paternal Grandmother Son 1 Alive Son 2 Alive Uncle 1 ma Alive Uncle 2 Social History Tobacco Use Types Packs/Day Years Used Date Smoking Tobacco: Every Day Cigarettes Smokeless Tobacco: Never Tobacco Cessation:Ready to Q uit: Not Asked; Counseling Given: Not Answered Alcohol Use Standard Drinks/Week Comments Yes 0 (1 standard drink = 0.6 oz pur e alcohol) Housing Instability Answer Date Recorde d Are you worried that in the next 2 months you may not have stable housing? No 08/14/2024 Food Access & Nutrition Answer Date Rec orded Do you have access to a vari ety of food including fruits and vegetables? Yes 08/14/2024 Access to Healthcare Answer Date Record ed Within the last 3 months, ho w many times did you visit the emergency department for your medical care? 0 08/14/2024 Health Literacy Answer Date Recorded How often do you need to hav e someone help you when you read instructions, pamphlets, or other written material from your doctor or pharmacy? Never 08/14/2024 Caregiver: How often do you need to have someone help you when you read instructions, pamphlets, or other written material from your doctor or pharmacy? Not on file 08/14/2024 Financial Risk Answer Date Recorded How hard is it for you to pa y for the very basics like food, housing, medical care, and air conditioning / heating? Not very hard 08/14/2024 Transportation Answer Date Recorded Has the lack of transportati on kept you from meetings, work, or from getting things needed for daily living? No Has the lack of transportati on kept you from medical appointments or from getting medications? No 08/14/2024 Social Isolation Answer Date Recorded How often do you feel lonely or isolated from th ose around you? Never 08/14/2024 Food Risk Answer Date Recorded Within the past 12 months we worried whether our food would run out before we got money to buy more. Never true 08/14/2024 Within the past 12 months th e food we bought just didn't last and we didn't have money to get more. Never true 08/14/2024 Dependent Care Answer Date Recorded Do you need help finding or paying for care for your loved ones. For example, residential child care counselor or elderly care for an older adult? No 08/14/2024 Education Answer Date Recorded Do you think completing more education or training, like finishing a GED, going to college, or learning a trade, would be helpful for you? No 08/14/2024 Employment and Income Answer Date Recor ded During the last four weeks, have you been actively looking for work? No 08/14/2024 Living Situation Answer Date Recorded What is your living situation? 0 08/14/2024 Interpersonal Safety Answer Date Record ed Physical Abuse 06/17/2024 Verbal Abuse 06/17/2024 Comments No Sex and Gender Information Value Date Recorded Sex Assigned at Female 06/17/2024 11:21 AM EST Legal Sex Female 7:19 PM EST Gender Identity Female 06/17/2024 11:21 AM EST Sexual Orientation Straight 06/17/2024 11 :21 AM EST Obstetrics History Para Term AB IAB SAB Ectopic Multiple Livin g Live Births 2 2 2 2 2 Date Outcome GA Total Labor Labor/2nd/3rd Weight Sex Type Anes PTL Janeth A1 A5 Name Clin 1997 Term 42w 0d 2863 g (101 oz) M Vag-S pont Epidur al Livin g Gonsalo Delivery Location:[facility] Comments:induced 2008 Term 40w 0d 3062 g (108 oz) M CS-LT ranv Epidur al Livin g 8 9 Fernandez Singmirian r Delivery Location:[facility] Comments:mild pih, arr est dilation, cord x 1 loose Last Filed Vital Signs Vital Sign Reading Time Taken Comments Blood Pressure 124/62 09/30/2024 3:28 PM EDT Pulse 93 09/30/2024 3:28 PM EDT Temperature 36.2 ??C (97.2 ??F) 09/30/2024 3:28 PM ED T Respiratory Rate 16 08/20/2024 2:58 PM EDT Oxygen Saturation 96% 09/30/2024 3:28 PM EDT Inhaled Oxygen Concentration - - Weight 59 kg (130 lb) 09/30/2024 3:28 PM EDT Height 154.9 cm (5' 0.98 ) 09/24/2024 2:48 PM ED T Body Mass Index 24.58 09/24/2024 2:48 PM EDT Plan of Treatment Upcoming Encounters Date Type Department Care Team (Late st Contact Info) Description 11/05/2024 2:45 PM EDT Office Visit Orthopedic Surgery [facility] [address] [phone] George Raya DPKian [address] [phone] 02/01/2025 3:00 PM EDT Office Visit [facility] Hematology Oncology [address] [place] [phone] Neelima-Joseluis Olivas MD [address] [place] [phone] 02/15/2025 4:30 PM EDT Office Visit Adult Medicine - [place] [address] [place] [phone] Toni Schroeder PA [address] [place] [address] Health Maintenance Due Date Last Done Comments Hepatitis A Vaccines (1 of 2 - Risk 2-dose series) 1992 Hepatitis B Vaccines (1 of 3 - 19+ 3-dose series) 1992 COVID-19 Vaccine ( season) 2024 03/13/2024, 06/23/2021, 10/15/2020, Additional history exists Depression Screening 08/14/2025 08/14/2024 Social Influencers of Health Screening 08/14/2025 08/14/2024 Hypertension/CHF/CAD Annual BMP Blood Test 08/17/2025 08/17/2024, 01/07/2024, 01/07/2024 Breast Cancer Screening 04/15/2026 04/15/20, 04/15/2023, 04/09/2022, Additional history exists Cholesterol Screening (Lipid Panel) 08/17/2029 08/17/2024, 07/01/2023 Cervical Cancer Screening: HPV 08/20/2029 08/20/2024, 04/12/2020 Cervical Cancer Screening: Pap Smear 08/20/2029 08/20/2024, 08/20/2024, 04/12/2020, Additional history exists DTaP,Tdap,and Td Vaccines (3 - Td or Tdap) 06/06/2031 06/06/2021, 11/30/2010 Colorectal Cancer Screening: Colonoscopy 06/17/2034 06/17/2024 HIV Screening Completed 11/04/2007 Influenza Vaccine Completed 03/13/2024, , 02/09/2019, Additional history exists Zoster Vaccines Completed 05/16/2024, 03/13/2024 Pneumococcal Vaccine: 50+ Years Completed 08/14/2024 Pneumococcal Vaccine: Pediatrics (0 to 5 Years) and At-Risk Patients (6 to 64 Years) Discontinued 08/14/2024 Hepatitis C Screening Completed 08/17/2024 HIB Vaccines Aged Out No longer eligi ble based on patient's age to complete this topic HPV Vaccines Aged Out No longer eligi ble based on patient's age to complete this topic IPV Vaccines Aged Out No longer eligi ble based on patient's age to complete this topic MMR Vaccines Aged Out No longer eligi ble based on patient's age to complete this topic Meningococcal ACWY Vaccine Aged Out N o longer eligible based on patient's age to complete this topic Meningococcal B Vaccine Aged Out No l onger eligible based on patient's age to complete this topic RSV Immunization Patients Under 20 months Aged Out No longer eligible based on patient's age to complete this topic Varicella Vaccines Aged Out No longer eligible based on patient's age to complete this topic Procedures Procedure Name Priority Date/Time Associated Diagnosis Comments INJECTION TENDON OR LIGAMENT Routine 09/24/2024 2:45 PM EDT Plantar fascial fibromatosis INJECTION TENDON OR LIGAMENT Routine 09/24/2024 2:45 PM EDT Plantar fascial fibromatosis FERRITIN Routine 09/21/2024 8:39 AM EDT Carrier of hemochromatosis HFE gene mutation PAP SMEAR Routine 08/20/2024 3:50 PM EDT Encounter for annual routine gynecological examination HPV WITH REFLEX GENOTYPE Routine 08/20/2024 3:50 PM EDT Encounter for annual routine gynecological examination INJECTION TENDON OR LIGAMENT Routine 08/19/2024 2:45 PM EDT Plantar fascial fibromatosis INJECTION TENDON OR LIGAMENT Routine 08/19/2024 2:45 PM EDT Plantar fascial fibromatosis CBC WITH AUTO DIFFERENTIAL Routine 08/17/2024 8:49 AM EDT Carrier of hemochromatosis HFE gene mutation HEPATITIS C ANTIBODY Routine 08/17/2024 8:49 AM EDT Need for hepatitis C screening test HEMOGLOBIN A1C Routine 08/17/2024 8:49 AM EDT Prediabetes IRON AND TIBC Routine 08/17/2024 8:49 AM EDT Carrier of hemochromatosis HFE gene mutation COMPREHENSIVE METABOLIC PANEL Routine 08/17/2024 8:49 AM EDT Primary hypertension LIPID PANEL WITH REFLEX TO DIRECT LDL Routine 08/17/2024 8:49 AM EDT Mixed hyperlipidemia CBC AND DIFFERENTIAL Routine 08/17/2024 8:49 AM EDT Carrier of hemochromatosis HFE gene mutation XR FOOT 3+ VIEWS BILAT Routine 07/15/2024 3:34 PM EST Bilateral foot pain INJECTION TENDON OR LIGAMENT Routine 07/15/2024 3:15 PM EST Plantar fascial fibromatosis INJECTION TENDON OR LIGAMENT Routine 07/15/2024 3:15 PM EST Plantar fascial fibromatosis COLONOSCOPY Routine 06/17/2024 12:13 PM EST Colon cancer screening MG MAMMO DIGITAL SCREENING W JAN BILAT Routine 04/15/2024 3:50 PM EST Encounter for screening mammogram for breast cancer HM HIV SCREENING Routine 11/04/2007 from Last 3 Months or Most Recently Relevant to Health Maintenance Results * Injection tendon or ligament (09/24/2024 2:45 PM EDT) Narrative George Raya DPM - 09/24/2024 2:45 PM EDT George Raya DPM ? 09/24/2024 ??6:02 PM Injection tendon or ligament Indications: pain Details: 25 G needle Medications: 0.5 mL lidocaine (PF) 1 %; 20 mg triamcinolone acetonide 40 mg/mL Informed Consent: ??Site: ??Foot ligament tendon George Raya DPM IN CLINIC/BEDSIDE ORDERAB LES Final Result * Injection tendon or ligament (09/24/2024 2:45 PM EDT) Narrative George Raya DPM - 09/24/2024 2:45 PM EDT George Raya DPM ? 09/24/2024 ??6:02 PM Injection tendon or ligament Indications: pain Details: 25 G needle Medications: 0.5 mL lidocaine (PF) 1 %; 20 mg triamcinolone acetonide 40 mg/mL Informed Consent: ??Site: ??Foot ligament tendon us George Raya DPM IN CLINIC/BEDSIDE ORDERAB LES Final Result * Ferritin (09/21/2024 8:39 AM EDT) [facility] Ferritin 240 8 - 252 ng/mL LAB CHEMISTRY METHOD 09/21/2024 6:[address] [facility] Blood Venous blood specimen / Unknown Venipuncture / Unknown 09/21/2024 8:39 AM EDT 09/21/2024 8:39 AM EDT Joseluis Disla MD LAB BLOOD ORDERABLE S Final Result Performing Organization Address City/[facility]/ZIP Co de Phone Number [facility] [address] [place] [address], [place] [phone] * HPV with reflex genotype (08/20/2024 3:50 PM EDT) [facility] HPV Negative Negative LAB MICROBIOLOGY METHOD 08/24/2024 2:[address] [facility] Brushing/Spatula Cervix uteri structure / Unknown 08/20/2024 3:50 PM EDT 08/21/2024 7:17 AM EDT José Miguel Myers CNM LAB MOLECULAR DIAGNOSTICS ORDMirian DAWN Final Result [facility] [address] [place] [address], [place] [phone] * Pap smear (08/20/2024 3:50 PM EDT) Interpretation Negative for intraepithelial lesion or malignancy 08/24/2024 4:[address] [facility] General Categorization Negative 08/24/2024 4:[address] [facility] Specimen Adequacy Satisfactory for evaluation, endocervical/robertson sformation zone component present 08/24/2024 4:[address] [facility] Pap Methodology Liquid Based Pap Test 08/24/2024 4:[address] [facility] Disclaimer The Pap test is a screening test which carries an inherent false negative rate. These test results should be correlated with the patient's clinical findings and history. This Pap test was processed using an automated screening system. Technical cytopathology services provided by [facility], at [address] [place] [address] (CLIA # [id number]/Aura Machado MD, Computer Assistant.) 08/24/2024 4:[address] [facility] Console Pap Interpretation Reported 08/24/2024 4:[address] [facility] Brushing/Spatula Cervix uteri structure / Unknown 08/20/2024 3:50 PM EDT 08/20/2024 3:50 PM EDT José Miguel Myers CN LAB CYTOLOGY ORDERABLES Final Result [facility] [address] [place] [address], [place] [phone] * Injection tendon or ligament (08/19/2024 2:45 PM EDT) Narrative George Raya DPM - 08/19/2024 2:45 PM EDT George Raya DPM ? 08/19/2024 ??6:58 PM Injection tendon or ligament Indications: pain Details: 25 G needle Medications: 0.5 mL lidocaine (PF) 1 %; 20 mg triamcinolone acetonide 40 mg/mL Informed Consent: ??Site: ??Foot ligament tendon George MORRISONM IN CLINIC/BEDSIDE ORDERAB LES Final Result * Injection tendon or ligament (08/19/2024 2:45 PM EDT) Narrative George Raya DPM - 08/19/2024 2:45 PM EDT George Raya DPM ? 08/19/2024 ??6:58 PM Injection tendon or ligament Indications: pain Details: 25 G needle Medications: 0.5 mL lidocaine (PF) 1 %; 20 mg triamcinolone acetonide 40 mg/mL Informed Consent: ??Site: ??Foot ligament tendon George MORRISONM IN CLINIC/BEDSIDE ORDERAB LES Final Result * Hepatitis C antibody (08/17/2024 8:49 AM EDT) [facility] Hepatitis C Antibody Negative Negative LAB CHEMISTRY METHOD 08/17/2024 4:[address] [facility] Blood Venous blood specimen / Unknown Venipuncture / Unknown 08/17/2024 8:49 AM EDT 08/17/2024 8:49 AM EDT Toni CALDERON LAB BLOOD ORDERABLES Final Res ult [facility] [address] [place] [address], [place] [phone] * (ABNORMAL) Lipid panel with reflex to direct LDL (08/17/2024 8:49 AM EDT) Pathologist [facility] Cholesterol 233(H) 0 - 200 mg/dL LAB CHEMISTRY METHOD 08/17/2024 2:[address] [facility] Triglycerides 408(H) 0 - 150 mg/dL LAB CHEMISTRY METHOD 08/17/2024 2:[address] [facility] Comment:Results verified by repeat testing HDL 79 >=40 mg/dL LAB CHEMISTRY METHOD 08/17/2024 2:[address] [facility] LDL Calculated 72 0 - 100 mg/dL LAB CHEMISTRY METHOD 08/17/2024 2:[address] [facility] Comment:Unable to calculate when triglycerides >400 mg/dL. VLDL Cholesterol Alexx 81.6 mg/dL LAB CHEMISTRY METHOD 08/17/2024 2:[address] [facility] Comment:Unable to calculate when triglycerides >400 mg/dL. Non HDL Chol. (LDL+VLDL) 154(H) <145 mg/dL LAB CHEMISTRY METHOD 08/17/2024 2:[address] [facility] Comment:Unable to calculate when triglycerides >400 mg/dL. Chol/HDL Ratio 2.9 0.0 - 4.4 LAB CHEMISTRY METHOD 08/17/2024 2:[address] [facility] Blood Venous blood specimen / Unknown Venipuncture / Unknown 08/17/2024 8:49 AM EDT 08/17/2024 8:49 AM EDT us Toni CALDERON LAB BLOOD ORDERABLES Final Res ult [facility] [address] [place] [address], * (ABNORMAL) CBC auto differential (08/17/2024 8:49 AM EDT) WBC 9.9 4.8 - 10.8 K/mcL LAB HEMETOLOGY METHOD 08/17/2024 12:[address] [facility] RBC 3.60(L) 3.80 - 4.80 M/mcL LAB HEMETOLOGY METHOD 08/17/2024 12:[address] [facility] Hemoglobin 14.2 11.5 - 16.0 g/dL LAB HEMETOLOGY METHOD 08/17/2024 12:51 PM [facility] Hematocrit 43.0 35.0 - 47.0 % LAB HEMETOLOGY METHOD 08/17/2024 12:51 PM [facility] MCV 120.1(H) 79.0 - 98.0 FL LAB HEMETOLOGY METHOD 08/17/2024 12:51 PM [facility] MCH 39.7(H) 27.0 - 32.0 pcg LAB HEMETOLOGY METHOD 08/17/2024 12:51 PM [facility] MCHC 33.0 32.0 - 37.0 g/dL LAB HEMETOLOGY METHOD 08/17/2024 12:51 PM [facility] RDW 13.7 11.0 - 15.0 % LAB HEMETOLOGY METHOD 08/17/2024 12:51 PM [facility] Platelets 354 130 - 400 K/mcL LAB HEMETOLOGY METHOD 08/17/2024 12:51 PM [facility] MPV 10.2 7.0 - 11.0 FL LAB HEMETOLOGY METHOD 08/17/2024 12:51 PM [facility] NRBC 0.0 <1.0 % LAB HEMETOLOGY METHOD 08/17/2024 12:51 PM [facility] NRBC Absolute 0.00 <0.10 K/mcL LAB HEMETOLOGY METHOD 08/17/2024 12:51 PM [facility] Neutrophils Relative 65.5 % LAB HEMETOLOGY METHOD 08/17/2024 12:51 PM [facility] Lymphocytes Relative 28.2 % LAB HEMETOLOGY METHOD 08/17/2024 12:51 PM [facility] Monocytes Relative 4.9 % LAB HEMETOLOGY METHOD 08/17/2024 12:[address] [facility] Eosinophils Relative 0.5 % LAB HEMETOLOGY METHOD 08/17/2024 12:[address] [facility] Basophils Relative 0.5 % LAB HEMETOLOGY METHOD 08/17/2024 12:[address] [facility] Immature Granulocytes Relative 0.4 % LAB HEMETOLOGY METHOD 08/17/2024 12:[address] [facility] Neutrophils Absolute 6.50 1.50 - 7.00 K/mcL LAB HEMETOLOGY METHOD 08/17/2024 12:[address] [facility] Lymphocytes Absolute 2.80 1.00 - 5.00 K/mcL LAB HEMETOLOGY METHOD 08/17/2024 12:[address] [facility] [facility] Monocytes Absolute 0.49 0.20 - 1.00 K/mcL LAB HEMETOLOGY METHOD 08/17/2024 12:[address] [facility] Eosinophils Absolute 0.05 0.00 - 0.50 K/mcL LAB HEMETOLOGY METHOD 08/17/2024 12:[address] [facility] Basophils Absolute 0.05 0.00 - 0.20 K/mcL LAB HEMETOLOGY METHOD 08/17/2024 12:[address] [facility] Immature Granulocytes Absolute 0.04(H) 0.00 - 0.03 K/mcL LAB HEMETOLOGY METHOD 08/17/2024 12:[address] [facility] Blood Venous blood specimen / Unknown Venipuncture / Unknown 08/17/2024 8:49 AM EDT 08/17/2024 8:49 AM EDT us Toni CALDERON LAB BLOOD ORDERABLES Final Res ult [facility] [address] [place] [address], * (ABNORMAL) Iron and TIBC (08/17/2024 8:49 AM EDT) Iron 191(H) 40 - 150 mcg/dL LAB CHEMISTRY METHOD 08/17/2024 2:[address] [facility] TIBC 289 250 - 450 mcg/dL LAB CHEMISTRY METHOD 08/17/2024 2:[address] [facility] Iron Saturation 66(H) 15 - 50 % LAB CHEMISTRY METHOD 08/17/2024 2:[address] [facility] Blood Venous blood specimen / Unknown Venipuncture / Unknown 08/17/2024 8:49 AM EDT 08/17/2024 8:49 AM EDT Toni CALDERON LAB BLOOD ORDERABLES Final Res ult Performing Organization Address City/[facility]/ZIP Co de Phone Number [facility] [address] [place] [address], * Hemoglobin A1c (08/17/2024 8:49 AM EDT) [facility] Hemoglobin A1C <4.2 <6.5 % LAB CHEMISTRY METHOD 08/17/2024 10:[address] [facility] Mean Bld Glu Estim. LAB CHEMISTRY METHOD 08/17/2024 10:[address] [facility] Comment:Unable to calculate due to HgB A1C being outside of the reportable range Blood Venous blood specimen / Unknown Venipuncture / Unknown 08/17/2024 8:49 AM EDT 08/17/2024 8:[address] [facility] - 08/17/2024 10:32 PM EDT repeated Toni CALDERON LAB BLOOD ORDERABLES Final Res ult Performing Organization Address City/[facility]/ZIP Co de Phone Number [facility] [address] [place] [address], [place] [phone] * (ABNORMAL) Comprehensive metabolic panel (08/17/2024 8:49 AM EDT) Sodium 142 133 - 145 mmol/L LAB CHEMISTRY METHOD 08/17/2024 2:18 PM [facility] Potassium 3.6 3.5 - 5.5 mmol/L LAB CHEMISTRY METHOD 08/17/2024 2:18 PM [facility] Chloride 106 96 - 110 mmol/L LAB CHEMISTRY METHOD 08/17/2024 2:18 PM [facility] CO2 26 21 - 32 mmol/L LAB CHEMISTRY METHOD 08/17/2024 2:18 PM [facility] Anion Gap 10 3 - 11 LAB CHEMISTRY METHOD 08/17/2024 2:18 PM [facility] Glucose 149(H) 70 - 100 mg/dL LAB CHEMISTRY METHOD 08/17/2024 2:18 PM [facility] BUN 6 5 - 25 mg/dL LAB CHEMISTRY METHOD 08/17/2024 2:18 PM [facility] Creatinine 0.53 0.50 - 1.10 mg/dL LAB CHEMISTRY METHOD 08/17/2024 2:18 PM [facility] eGFR 112 >=60 mL/min/1. 73m2 LAB CHEMISTRY METHOD 08/17/2024 2:18 PM [facility] Comment:Calculation based on the??Chronic Kidney Disease Epidemiology Collaboration (CKD-EPI) equation refit??without adjustment for race. BUN/Creatinine Ratio 11.3 LAB CHEMISTRY METHOD 08/17/2024 2:18 PM [facility] Calcium 9.7 8.5 - 10.5 mg/dL LAB CHEMISTRY METHOD 08/17/2024 2:18 PM [facility] AST (SGOT) 33 10 - 42 unit/L LAB CHEMISTRY METHOD 08/17/2024 2:[address] [facility] ALT (SGPT) 37 10 - 60 unit/L LAB CHEMISTRY METHOD 08/17/2024 2:[address] [facility] Alkaline Phosphatase 140(H) 42 - 121 unit/L LAB CHEMISTRY METHOD 08/17/2024 2:[address] [facility] Total Protein 7.0 6.0 - 8.0 g/dL LAB CHEMISTRY METHOD 08/17/2024 2:[address] [facility] Albumin 3.6 3.2 - 5.0 g/dL LAB CHEMISTRY METHOD 08/17/2024 2:[address] [facility] Total Bilirubin 1.8(H) 0.0 - 1.4 mg/dL LAB CHEMISTRY METHOD 08/17/2024 2:[address] [facility] Blood Venous blood specimen / Unknown Venipuncture / Unknown 08/17/2024 8:49 AM EDT 08/17/2024 8:49 AM EDT us Toni CALDERON LAB BLOOD ORDERABLES Final Res ult [facility] [address] [place] [address], * XR Foot 3+ Views bilat (07/15/2024 3:34 PM EST) Anatomical Region Laterality Modality Lower Extremities, Foot Bilateral Computed Radiography Narrative 07/15/2024 5:12 PM EST Right foot ??3 views No fracture. No radiopaque foreign joint spaces ?? Arthritis mild ? Mild calcaneal spur Foot position Pes planus with Talus navicular uncovering decreased calcaneal inclination anterior displaced symes line talus navicular joint to calcaneal cuboid joint ?? Left foot 3 views No fracture. No radiopaque foreign joint spaces ?? Arthritis mild ? Mild calcaneal spur Foot position Pes planus with Talus navicular uncovering decreased calcaneal inclination anterior displaced symes line talus navicular joint to calcaneal cuboid joint ?? us George Raya DPM IMG XR PROCEDURES Final R esult * Injection tendon or ligament (07/15/2024 3:15 PM EST) George Russo DPM - 07/15/2024 3:15 PM EST George Raya DPM ? 07/15/2024 ??5:13 PM Injection tendon or ligament Indications: pain Details: 25 G needle Medications: 0.5 mL lidocaine (PF) 1 %; 20 mg triamcinolone acetonide 40 mg/mL Informed Consent: ??Site: ??Foot ligament tendon us George Raya DPM IN CLINIC/BEDSIDE ORDERAB LES Final Result * Injection tendon or ligament (07/15/2024 3:15 PM EST) George Russo DPM - 07/15/2024 3:15 PM EST George Raya DPM ? 07/15/2024 ??5:13 PM Injection tendon or ligament Indications: pain Details: 25 G needle Medications: 0.5 mL lidocaine (PF) 1 %; 20 mg triamcinolone acetonide 40 mg/mL Informed Consent: ??Site: ??Foot ligament tendon us George Raya DPM IN CLINIC/BEDSIDE ORDERAB LES Final Result * COLONOSCOPY Anesthesia - MAC; [facility] ENDOSCOPY (06/17/2024 12:13 PM EST) Anatomical Region Laterality Modality Endoscopy 06/17/2024 11:5 5 AM EST Impressions 06/17/2024 12:15 PM EST - Anal stricture found on digital rectal exam. ? - Moderate diverticulosis in the sigmoid colon. There ? was narrowing of the colon in association with the ? diverticular opening. ? - The distal rectum and anal verge are normal on ? retroflexion view. ? - No specimens collected. Recommendation: ?- Written discharge instructions were provided to the ? patient. ? - Discharge patient to home. ? - Repeat colonoscopy in 10 years for screening ? purposes. ? - Use original regular Metamucil one teaspoon PO BID. Narrative 06/17/2024 12:15 PM EST [facility] Patient Name: Rochelle Gutierres Procedure Date: 06/17/2024 11:55 AM Date of : 1975 Age: 49 Gender: Female Note Status: Finalized Attending MD: Dioni Owusu MD, Procedure Date No Time: 06/17/2024 Procedure: ? Colonoscopy Indications: ? Screening for colorectal malignant neoplasm Providers: ? Dioni Owusu MD Referring MD: ?Dioni Owusu MD Medicines: ? Monitored Anesthesia Care Complications: ? No immediate complications. Estimated blood loss: None. Estimated Blood Loss: ? Estimated blood loss: none. Procedure: ? Pre-Anesthesia Assessment: ? - Prior to the procedure, a History and Physical was ? performed, and patient medications and allergies were ? reviewed. The patient is competent. The risks and ? benefits of the procedure and the sedation options and ? risks were discussed with the patient. All questions ? were answered and informed consent was obtained. ? Patient identification and proposed procedure were ? verified by the physician, the nurse, the slicing machine operator ? and the product support technician in the pre-procedure area in the ? endoscopy suite. Mental Status Examination: alert and ? oriented. Airway Examination: normal oropharyngeal ? airway and neck mobility. Respiratory Examination: ? clear to auscultation. CV Examination: normal. ? Prophylactic Antibiotics: The patient does not require ? prophylactic antibiotics. Prior Anticoagulants: The ? patient has taken no anticoagulant or antiplatelet ? agents. ASA Grade Assessment: III - A patient with ? severe systemic disease. After reviewing the risks and ? benefits, the patient was deemed in satisfactory ? condition to undergo the procedure. The anesthesia ? plan was to use monitored anesthesia care (MAC). ? Immediately prior to administration of medications, ? the patient was re-assessed for adequacy to receive ? sedatives. The heart rate, respiratory rate, oxygen ? saturations, blood pressure, adequacy of pulmonary ? ventilation, and response to care were monitored ? throughout the procedure. The physical status of the ? patient was re-assessed after the procedure. ? After I obtained informed consent, the scope was ? passed under direct vision. Throughout the procedure, ? the patient's blood pressure, pulse, and oxygen ? saturations were monitored continuously. The ? Colonoscope was introduced through the anus and ? advanced to the cecum, identified by appendiceal ? orifice and ileocecal valve. The colonoscopy was ? performed without difficulty. The patient tolerated ? the procedure well. The quality of the bowel ? preparation was good. Findings: ?The digital rectal exam findings include anal ? stricture. ? Multiple small and large-mouthed diverticula were ? found in the sigmoid colon. There was narrowing of the ? colon in association with the diverticular opening. ? The retroflexed view of the distal rectum and anal ? verge was normal and showed no anal or rectal ? abnormalities. Procedure Code(s): ? --- Professional --- ? G0121, Colorectal cancer screening; colonoscopy on ? individual not meeting criteria for high risk Diagnosis Code(s): ? --- Professional --- ? Z12.11, Encounter for screening for malignant neoplasm ? of colon CPT copyright 2020 [employer]. All rights reserved. The codes documented in this report are preliminary and upon line maintenance review may be revised to meet current compliance requirements. Dioni Owusu MD 06/17/2024 12:15:50 PM This report has been signed electronically.Dioni Owusu MD Number of Addenda: 0 Note Initiated On: 06/17/2024 11:55 AM Scope Withdrawal Time: 0 hours 8 minutes 12 seconds Scope In: 11:58:16 AM Scope Out: 12:13:29 PM ? Endoscopy Department at [facility] - [address] [place] [address], ? [place] [address] Procedure Note Dioni Owusu MD - 06/17/2024 [facility] Patient Name: Rochelle Gutierres Procedure Date: 06/17/2024 11:55 AM Date of : 1975 Age: 49 Gender: Female Note Status: Finalized Attending MD: Dioni Owusu MD, Procedure Date No Time: 06/17/2024 Procedure: Colonoscopy Indications: Screening for colorectal malignant neoplasm Providers: Dioni Owusu MD Referring MD: Dioni Owusu MD Medicines: Monitored Anesthesia Care Complications: No immediate complications. Estimated blood loss:None. Estimated Blood Loss: Estimated blood loss: none. Procedure: Pre-Anesthesia Assessment: - Prior to the procedure, a History and Physicalwas performed, and patient medications and allergieswere reviewed. The patient is competent. The risks and benefits of the procedure and the sedation optionsand risks were discussed with the patient. Allquestions were answered and informed consent was obtained. Patient identification and proposed procedure were verified by the physician, the nurse, theanesthetist and the product support technician in the pre-procedure area in the endoscopy suite. Mental Status Examination: alertand oriented. Airway Examination: normal oropharyngeal airway and neck mobility. Respiratory Examination: clear to auscultation. CV Examination: normal. Prophylactic Antibiotics: The patient does notrequire prophylactic antibiotics. Prior Anticoagulants: The patient has taken no anticoagulant or antiplatelet agents. ASA Grade Assessment: III - A patient with severe systemic disease. After reviewing the risksand benefits, the patient was deemed in satisfactory condition to undergo the procedure. The anesthesia plan was to use monitored anesthesia care (MAC). Immediately prior to administration of medications, the patient was re-assessed for adequacy to receive sedatives. The heart rate, respiratory rate, oxygen saturations, blood pressure, adequacy of pulmonary ventilation, and response to care were monitored throughout the procedure. The physical status ofthe patient was re-assessed after the procedure. After I obtained informed consent, the scope was passed under direct vision. Throughout theprocedure, the patient's blood pressure, pulse, and oxygen saturations were monitored continuously. The Colonoscope was introduced through the anus and advanced to the cecum, identified by appendiceal orifice and ileocecal valve. The colonoscopy was performed without difficulty. The patient tolerated the procedure well. The quality of the bowel preparation was good. Findings: The digital rectal exam findings include anal stricture. Multiple small and large-mouthed diverticula were found in the sigmoid colon. There was narrowing ofthe colon in association with the diverticularopening. The retroflexed view of the distal rectum and anal verge was normal and showed no anal or rectal abnormalities. Procedure Code(s): --- Professional --- G0121, Colorectal cancer screening; colonoscopy on individual not meeting criteria for high risk Diagnosis Code(s): --- Professional --- Z12.11, Encounter for screening for malignantneoplasm of colon CPT copyright 2020 [employer]. All rights reserved. The codes documented in this report are preliminary and upon line maintenance reviewmay be revised to meet current compliance requirements. Dioni Owusu MD 06/17/2024 12:15:50 PM This report has been signed electronically.Dioni Owusu MD Number of Addenda: 0 Note Initiated On: 06/17/2024 11:55 AM Scope Withdrawal Time: 0 hours 8 minutes 12 seconds Scope In: 11:58:16 AM Scope Out: 12:13:29 PM Endoscopy Department at [facility] - [address] [place] [phone] IMPRESSION: - Anal stricture found on digital rectal exam. - Moderate diverticulosis in the sigmoid colon.There was narrowing of the colon in association with the diverticular opening. - The distal rectum and anal verge are normal on retroflexion view. - No specimens collected. Recommendation: - Written discharge instructions were provided tothe patient. - Discharge patient to home. - Repeat colonoscopy in 10 years for screening purposes. - Use original regular Metamucil one teaspoon POBID. us Dioni Owusu MD GI~PROCEDURE ORDERABLES Fin al Result * MG Mammo Digital Screening w Jan bilat (04/15/2024 3:50 PM EST) Anatomical Region Laterality Modality Breast Bilateral Mammography 04/16/2024 6:46 AM EST Impressions 04/16/2024 6:52 AM EST No mammographic evidence of malignancy. ?? No suspicious interval change. A negative mammogram in the presence of a clinically suspicious palpable abnormality does not preclude the possibility of malignancy or alter the indications for biopsy. ASSESSMENT: ?? BI-RADS 2: BENIGN RECOMMENDATION(S): 1: Routine screening mammogram BILATERAL in 1 year. -------- FINAL REPORT -------- Dictated By: Jeronimo Pearson Dictated Date: 04/16/2024 06:46 ET Assigned Physician: Jeronimo Pearson Reviewed and Electronically Signed By: Jeronimo Pearson Signed Date: 04/16/2024 06:52 ET Workstation ID: [id number] Transcribed By: Self Edit Transcribed Date: 04/16/2024 06:46 ET Narrative 04/16/2024 6:52 AM EST EXAM: ??SCREENING MAMMOGRAPHY, BILATERAL HISTORY: ??SCREENING. ??No additional history. COMPARISON: ??04/13/2023, 04/09/2022, 04/05/2021, 04/15/2020 TECHNIQUE: Synthesized CC and MLO projections of each breast. ??Tomosynthesis of each breast in the CC and MLO projections. ADDITIONAL IMAGING: None Computer-aided detection was employed with the iCAD ??profound AI 3-D. TISSUE DENSITY: There are scattered areas of fibroglandular density. (BI-RADS category B) FINDINGS: RIGHT BREAST: No suspicious mass. No suspicious calcification. No distortion. ?? There are multiple small low density circumscribed round and oval masses which appear unchanged. LEFT BREAST: No suspicious mass. No suspicious calcification. No distortion. ?? There are multiple small low density circumscribed round and oval masses which appear unchanged. Procedure Note Jeronimo Pearson MD - 04/16/2024 EXAM: SCREENING MAMMOGRAPHY, BILATERAL HISTORY: SCREENING. No additional history. COMPARISON: 04/13/2023, 04/09/2022, 04/05/2021, 04/15/2020 TECHNIQUE: Synthesized CC and MLO projections of each breast.Tomosynthesis of each breast in the CC and MLO projections. ADDITIONAL IMAGING: None Computer-aided detection was employed with the [employer] AI 3-D. TISSUE DENSITY: There are scattered areas of fibroglandular density.(BI-RADS category B) FINDINGS: RIGHT BREAST: No suspicious mass. No suspicious calcification. No distortion. Thereare multiple small low density circumscribed round and oval masses whichappear unchanged. LEFT BREAST: No suspicious mass. No suspicious calcification. No distortion. Thereare multiple small low density circumscribed round and oval masses whichappear unchanged. IMPRESSION: No mammographic evidence of malignancy. No suspicious interval change. A negative mammogram in the presence of a clinically suspicious palpableabnormality does not preclude the possibility of malignancy or alter theindications for biopsy. ASSESSMENT: BI-RADS 2: BENIGN RECOMMENDATION(S): 1: Routine screening mammogram BILATERAL in 1 year. -------- FINAL REPORT -------- Dictated By: Jeronimo Pearson Dictated Date: 04/16/2024 06:46 ET Assigned Physician: Jeronimo Pearson Reviewed and Electronically Signed By: Jeronimo Pearson Signed Date: 04/16/2024 06:52 ET Workstation ID: [id number] Transcribed By: Self Edit Transcribed Date: 04/16/2024 06:46 ET Janett Rivera MD IMG BI PROCEDURES Final Result * HIV Screening (11/04/2007) Pathologist [facility] HIV Screening abstracted Historical Provider HEALTH MAINTENANCE Final Result from Last 3 Months or Most Recently Relevant to Health Maintenance Insurance [facility] Care Teams Distributor Sales Manager Relationship Specialty Start Date End Date Janett Rivera MD [address] [place] [phone] PCP - General 10/23/07
--- OUTSIDE RECORDS SUMMARY | 2024-10-12 15:40 | XMS_ITS | Clinical Summary ---
Author Organization [facility] Address [address] [place] [address] Care Team Providers Care Wood Fence Installer Name Role Phone Janett Rivera MD Primary Care Prov ider Allergies No known active allergies Medications Medication Sig Dispensed Refills Start Date End Date Status atorvastatin (LIPITOR) tablet 10 mg Take 1 tablet (10 mg total) by mouth daily. 0 06/11/2022 Active fluconazole (DIFLUCAN) 150 MG tablet TAKE ONE TAB TODAY, IF SYMPTOMS CONTINUE IN 3 DAYS TAKE SECOND TAB 0 07/10/2022 Active lisinopril (PRINIVIL,ZESTRIL) tablet 10 mg Take 1 tablet (10 mg total) by mouth daily. 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 Family History Medical History Relation Name Comments Stroke Maternal Grandfather Diabetes Maternal Grandmother Cancer Mother Diabetes Mother Relation Name Status Comments Maternal Grandfather Maternal Grandmother Mother Social History Tobacco Use Types Packs/Day Years Used Date Smoking Tobacco: Every Day Cigarettes 0.5 Smokeless Tobacco: Never Tobacco Cessation:Ready to Q uit: Not Asked; Counseling Given: Not Answered Alcohol Use Standard Drinks/Week Comments Yes 20 (1 standard drink = 0.6 oz pu re alcohol) Sex and Gender Information Value Date Recorded Sex Assigned at Not on file Gender Identity Not on file Sexual Orientation Not on file Job Start Date Occupation Industry Not on file Not on file Not on file Last Filed Vital Signs Vital Sign Reading Time Taken Comments Blood Pressure 105/68 11/26/2022 3:11 PM EDT Pulse 90 11/26/2022 3:11 PM EDT Temperature 36.7 ??C (98 ??F) 11/26/2022 3:11 PM EDT Respiratory Rate - - Oxygen Saturation 100% 11/26/2022 3:11 PM EDT Inhaled Oxygen Concentration - - Weight 59.9 kg (132 lb) 11/26/2022 3:11 PM EDT Height 153.7 cm (5' 0.5 ) 11/26/2022 3:11 PM EDT Body Mass Index 25.36 11/26/2022 3:11 PM EDT Plan of Treatment Health Maintenance Due Date Last Done Comments Hepatitis B Vaccines (1 of 3 - 3-dose series) 1975 Hepatitis C Screening 1975 Pneumococcal Vaccine (1 of 2 - PCV) 1979 Depression Screening 1985 Preventative Health Evaluation 1991 Cervical Cancer Screening (Pap Smear) 1994 Colon Cancer Screening (Colonoscopy) 2018 Breast Cancer Screening (Mammogram) 2023 Shingrix-Zoster Vaccine (1 of 2) 2023 COVID-19 Vaccine ( season) 2024 06/23/2021, 10/15/2020, 09/24/2020 Influenza Vaccine (#1) 2024 , 02/09/2019, 02/22/2011, Additional history exists DTap / Tdap / Td (3 - Td or Tdap) 06/06/2031 06/06/2021, 11/30/2010 RSV Ped < 20 months Aged Out No longe r eligible based on patient's age to complete this topic Care Teams Wood Fence Installer Relationship Specialty Start Date End Date Janett Rivera MD PCP - General Internal Medicine 06/21/22
--- OUTSIDE RECORDS SUMMARY | 2024-10-12 15:40 | XMS_ITS | Encounter Summary ---
Author Organization [facility] Address [address] [place] [address] Care Team Providers Care Concrete Finisher Name Role Phone Cris Rivera MD Primary Care Provider [phone] Reason for Visit * Reason Onset Date Comments Medication 01/28/2024 Encounter Details Date Type Department Care Team Description 01/28/2024 Refill Gastroenterology - [place] [address] [facility] [address] [place] [id number] Ezequiel Fernandez MD [address] [facility] [place] [address] [place] [address] Medication Social History Tobacco Use Types Packs/Day [...] often do you attend chur ch or mu-ism services? Never 06/06/2021 Do you belong to any clubs o r organizations such as christian groups, unions, fraternal or athletic groups, or [...] on filedocumented in this encounter Care Teams Concrete Finisher Relationship Specialty Start Date End Date Cris Rivera MD [facility] [place] [address] PCP - General 10/23/07 documented as of this encounter
--- OUTSIDE RECORDS SUMMARY | 2024-10-12 15:40 | XMS_ITS | Encounter Summary ---
Author Organization [facility] Address [address] [place] [address] Care Team Providers Care Mig Welder Name Role Phone Cris Rivera MD Primary Care Provider [phone] Encounter Details Date Type Department Care Team Description 11/23/2022 Refill Adult Medicine - [place] [address] [place] [address] Toni Schroeder PA-C [address] [place] [address] Social History Tobacco Use Types Packs/Day Years [...] week 06/06/2021 How often do you attend [facility] or oriental orthodox services? Never 06/06/2021 Do you belong to any clubs o r organizations such as sikh groups, unions, fraternal or athletic groups, or [...] to sleep or slept in a senior care (including now)? No 06/06/2021 Sex Assigned at Date Recorded Not on file Job Start Date Occupation Industry Not on file Not on file Not on file COVID-19 Exposure Response Date Recorded In the last 10 days, have yo u been in contact with someone who was confirmed or suspected to have Coronavirus/COVID-19? No / Unsure 11/08/2022 2:50 PM EDT documented as of this encounter Miscellaneous Notes * Telephone Encounter - Monae Seo M.A. - 11/23/2022 11:27 AM EDT Melquiades - 11/08/22 Nov - unknown documented in this encounter Plan of Treatment Not on file documented as of this encounter Visit Diagnoses Not on filedocumented in this encounter Care Teams Mig Welder Relationship Specialty Start Date End Date Cris Rivera MD [address] [place] [id number] PCP - General 10/23/07 documented as of this encounter
== END 2024-10-12 15:35 | disposition home or self-care (01) ==
LOC: HO.BBR 15:34
PROVIDERS: Visit Provider Internal Medicine
DX: Z13.89 Encounter for screening for other disorder (principal)

== ENCOUNTER 2024-12-15 15:30 | Outpatient (REF) | payer OTHER, SELFPAY ==
--- OUTSIDE RECORDS SUMMARY | 2024-12-15 16:20 | XMS_ITS | Clinical Summary ---
Author Organization [facility] Address [address] [place] [address] Care Team Providers Care Cco Name Role Phone Janett Rivera MD Primary [...] 90 11/26/2022 3:11 PM EDT Temperature 36.7 C (98 F) 11/26/2022 3:11 PM EDT Respiratory Rate - [...] 2024 06/23/2021, 10/15/2020, 09/24/2020 Influenza Vaccine (#1) 2025 , 02/09/2019, 02/22/2011, Additional history exists DTap / Tdap / Td (3 - Td or Tdap) 06/06/2031 06/06/2021, 11/30/2010 RSV Ped < 20 months Aged Out No longe r eligible based on patient's age to complete this topic Care Teams Cco Relationship Specialty Start Date End Date Janett Rivera MD PCP - General Internal Medicine 06/21/22
--- OUTSIDE RECORDS SUMMARY | 2024-12-15 16:20 | XMS_ITS ---
Author Organization [facility] Address [address] [place] [address] Phone Care Team Providers Care Emergency Medicine Name Role Phone Janett Rivera MD Primary Care Prov ider Transitional Care Management Status:Closed (Closed) Start date:11/11/2024 Enrollment date:11/11/2024 Enrollment reason:Identified using hospital discharge data End date:12/11/2024 Close reason:Completed program Continued Care and Services Coordination
== END 2024-12-15 15:31 | disposition home or self-care (01) ==
LOC: HO.BBR 15:30
PROVIDERS: Visit Provider Internal Medicine
DX: Z13.89 Encounter for screening for other disorder (principal)

== ENCOUNTER 2025-02-03 16:43 | Inpatient (IN) | payer OTHER, SELFPAY ==
--- OUTSIDE RECORDS SUMMARY | 2025-02-01 15:00 | XMS_ITS | Encounter Summary ---
Author Organization [facility] Address [address] [place] [address] Care Team Providers Care Sheet Heater Helper Name Role Phone Janett Rivera MD Primary Care Prov ider Reason for Visit * Reason Comments Follow-up * Consultation (Routine) - Authorized Specialty Diagnoses / Procedures Referred By Contac t Referred To Contact Hematology and Oncology Diagnoses Iron overload Toni Schroeder PA [address] [place] [address] Phone: tel: fax: Joseluis Disla MD [address] [place] [address] Phone: tel: fax: Referral ID Status Reason Start Date Expiration Date Visits Requested Visits Authorized [id number] Authorized Specialty Services Required 08/18/2024 08/18/2025 1 1 Encounter Details Date Type Department Care Team (Latest Contact Info) Description 02/01/2025 3:00 PM EDT Office Visit [facility] Hematology Oncology [address] [place] [address] Joseluis Disla MD [address] [place] [address] 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 For example, childcare director or elderly care for an older adult? [...] Safety Answer Date Record ed Physical Abuse 11/10/2024 Verbal Abuse 11/10/2024 Comments No Sex and Gender Information Value Date Recorded Sex Assigned at Female 06/17/2024 11:21 AM EST Legal Sex Female 7:19 PM EST Gender Identity Female 06/17/2024 11:21 AM EST Sexual Orientation Straight 06/17/2024 11 :21 AM EST documented as of this encounter Last Filed Vital Signs Vital Sign Reading Time Taken Comments Blood Pressure 118/73 02/01/2025 3:10 PM EDT Pulse 110 02/01/2025 3:10 PM EDT Temperature 37 C (98.6 F) 02/01/2025 3:10 PM EDT Respiratory Rate - - Oxygen Saturation 98% 02/01/2025 3:10 PM EDT Inhaled Oxygen Concentration - - Weight 61.2 kg (135 lb) 02/01/2025 3:10 PM EDT Height 154.9 cm (5' 1 ) 02/01/2025 3:10 PM EDT Body Mass Index 25.51 02/01/2025 3:10 PM EDT documented in this encounter Progress Notes * Joseluis Ortez-MD [place] - 02/01/2025 3:00 PM EDT CHIEF COMPLAINT: Chief Complaint Patient presents with Follow-up Hemochromatosis-carrier with gradual increase in iron saturation/ferritin IDENTIFIER:Rochelle Gutierres is a 49 y.o. female. HPI: The patient returns for follow up of elevated ferritin, and concern for hemochromatosis. Patient had lab work performed in August, that is reviewed in detail with her. 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 For details of initial diagnosis and follow up until MAR 27, 2024- please refer to notes from prior [facility] EMR last note dated 11/26/2022 Patient reports that since last clinic visit she did have 1 phlebotomy at [facility]. However when she returned for the second 1 the pulse rate was too high, and therefore they canceled it. She had lab work performed that is reviewed Ferritin improved from 240 down to 137, after the first phlebotomy Today patient reports dyspnea. She is going to have evaluation at the ER after this visit, as her dyspnea has been worsening over the last few weeks. The following is copied, reviewed and edited Cancer Staging No matching staging information was found for the patient. Oncology History No history exists. 08/2022 --47-year-old lady, who is referred for hematology evaluation regarding concern for hemochromatosis. Patient reports that she is feeling well currently. However she had a recent PCP office evaluation,and at that time history review indicated that she has significant family history of hemochromatosis. Patient was quite concerned about this. She had lab work performed that showed a high iron and iron saturation level. Thereafter attempted for hemochromatosis mutation testing, however prior authorization was required. Therefore patient was referred to hematology. Patient denies any significant nausea or abdominal pain. She has occasional fleeting joint pain. She denies any dyspnea or chest pressure. No palpitations Past medical history Family history Positive for hemochromatosis, her father is a carrier, multiple uncles and aunts with the disease, 1 uncle after diagnosed hemochromatosis, liver disease and liver transplant. 1 cousin recently due to heart failure 11/2022- However prior lab work had shown a high iron saturation at 53%, and that has improved and August down to 39%. Iron level has also normalized at 106. Ferritin is slightly high at 232. At this levels, I do not recommend phlebotomy, I recommend monitoring lab work, and iron studies annually. In addition she could also check her liver enzymes annually. Avoid alcohol. PLAN -47-year-old lady with family history of hereditary hemochromatosis, C282Y mutation, patient herself is heterozygous. Her prior lab work indicated elevated iron saturation, however this has improved significantly in August. Patient's mutation testing is reviewed in detail and a copy is providedto her. She has a heterozygous mutation, and in the absence of increase in iron saturation or ferritin level going up greater than 400, I do not recommend phlebotomy. I recommend annual monitoring ofiron studies, iron saturation, ferritin levels and liver enzyme test as well. I discussed with the patient regarding avoiding liver toxic, avoiding alcohol use. She should also avoid iron-containing m ultivitamins. There are no other dietary restrictions. She may continue follow- up with her PCP and return to this clinic in future as needed. 09/2024 - Patient has been following with her PCP and returns after lab work revealed increased iron saturation and gradual increase in ferritin. Her ongoing issues with fatigue, as well as back pain. Patient had a prior imaging study that showed spinal stenosis she was not aware of this. She also reports anterior abdominal discomfort, and poor appetite, may have recrudescence of diverticulitis as in the past. Discussion today regarding use of phlebotomy to improve her iron saturation, and patient is agreeable Patient reports of foot pain, awaiting surgical evaluation and possible operation at a later date, advised her to wait until ferritin levels have improved and iron saturation as well ROS: GENERAL: No malaise, significant weight loss or fever NECK: No lumps, goiter, pain or significant neck swelling RESPIRATORY: No cough, wheezing or shortness of breath CARDIOVASCULAR: No chest pain, leg swelling or palpitations GI: No abdominal discomfort, blood in stools or black stools MUSCULOSKELETAL: No joint pain or swelling, back pain, or muscle pain. 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 12/18/2022 Fatty liver 01/14/2019 History of alcohol abuse 06/06/2021 Hyperlipidemia 06/06/2021 Hypertension 04/18/2020 Prediabetes 07/02/2023 Elevated ferritin 09/30/2024 Intractable back pain 09/30/2024 Spinal stenosis of lumbar region without neurogenic claudication 09/30/2024 Chronic bronchitis, obstructive (CMS/HCC V24, CMS/HCC V28) 10/30/2024 Shortness of breath 11/10/2024 Reactive airway disease 11/11/2024 Resolved Ambulatory Problems Diagnosis Date Noted Hemochromatosis 09/07/2022 Past Medical History: Diagnosis Date COPD (chronic obstructive pulmonary disease) (CMS/HCC V24, CMS/HCC V28) Genital HSV 2013 History of dysplastic nevus Other specified personal history presenting hazards to health(V15.89) Ovarian cyst, left 09/2014 Papanicolaou smear of cervix with atypical squamous cells of undetermined significance (ASC-US) 08/01 Tobacco abuse 04/29/2009 SOCIAL HISTORY: Social History Tobacco Use Smoking status: Every Day Current packs/day: 0.75 Types: Cigarettes Smokeless tobacco: Never Tobacco comments: Smoking 3 cigs daily Substance Use Topics Alcohol use: Yes FAMILY HISTORY: Family History Problem Relation Name Age of Onset Hypertension Mother Hyperlipidemia Mother Other cancer Mother cervical cancer Diabetes Mother Thyroid disease Father Hypertension Father Hyperlipidemia Father Other (Other: heart disease) Father Prostate cancer Father No Known Problems Brother Diabetes Maternal Grandmother everybody on mother's side have dm, except mother Dementia Maternal Grandmother at 74 Stroke Maternal Grandfather at 50 Heart failure Paternal Grandmother of [place] at 65 Hypertension Paternal Grandfather Emphysema Paternal Grandfather in his 60s Breast cancer Uncle ma Other (Other: male breast cancer) Uncle ma maternal uncle - 50 Melanoma Uncle another maternal uncle in his 60s Colon cancer Neg Hx Pancreatic cancer Neg Hx Ovarian cancer Neg Hx Uterine cancer Neg Hx Current Outpatient Medications: acetaminophen-codeine (TYLENOL #3) 300-30 mg per tablet, Take 1 tablet by mouth every 6 (six) hoursif needed for moderate pain (cough). Max Daily Amount: 4 tablets, Disp: 20 tablet, Rfl: 0 atorvastatin (LIPITOR) 10 mg tablet, TAKE 1 TABLET BY MOUTH EVERY DAY, Disp: 90 tablet, Rfl: 0 beclomethasone dipropionate (Qvar RediHaler) 40 mcg/actuation HFA aerosol breath activated inhaler,Inhale 2 puffs by mouth 2 (two) times a day., Disp: 1 each, Rfl: 12 ipratropium-albuteroL (DUONEB) 0.5-2.5 mg/3 mL nebulizer solution, Take 3 mL by nebulization every 6 (six) hours if needed for wheezing., Disp: 360 mL, Rfl: 11 levonorgestreL (MIRENA) 21 mcg/24 hr (8 yrs) 52 mg IUD, 1 Each by Intrauterine route Once., Disp: ,Rfl: lisinopriL (PRINIVIL,ZESTRIL) 10 mg tablet, TAKE 1 TABLET BY MOUTH EVERY DAY, Disp: 90 tablet, Rfl:1 montelukast (SINGULAIR) 10 mg tablet, Take 1 tablet (10 mg total) by mouth at bedtime., Disp: 30 each, Rfl: 5 multivit-min/ferrous fumarate (MULTI VITAMIN ORAL), 1 daily, Disp: , Rfl: predniSONE (DELTASONE) 20 mg tablet, 2 tab po qd x 5 days and 1 tab po qd x 5 days (Patient not taking: Reported on 01/27/2025), Disp: 15 each, Rfl: 0 No Known Allergies PHYSICAL EXAM: Visit Vitals OB Status Postmenopausal Smoking Status Every Day APPEARANCE: Alert and in no acute distress EYES: PERRL, conjunctiva pink and sclera are Normal without icterus ORAL CAVITY: No erythema or exudates NECK: Neck supple, no adenopathy, HEART: RRR with normal S1 and S2, no murmurs, no gallops, no JVD appreciated LUNG: clear to auscultation bilaterally Percussion note normal LYMPH NODES: No palpable superficial adenopathy ABDOMEN: Bowel sounds normoactive, no bruits, soft, non-tender, without organomegaly or palpable masses EXTREMITIES: Extremities warm and well perfused without clubbing, cyanosis, rash or edema NEURO: Oriented X 3, no focal weakness; sensation is normal LABS: Review of Lab results , interpreted Lab Results Component Value Date WBC 14.6 (H) 12/31/2024 HGB 13.1 12/31/2024 HCT 40.5 12/31/2024 MCV 123.9 (H) 12/31/2024 PLT 455 (H) 12/31/2024 Lab Results Component Value Date NA 141 12/31/2024 K 4.2 12/31/2024 CL 106 12/31/2024 CO2 31 12/31/2024 GLUCOSE 113 (H) 12/31/2024 BUN 7 12/31/2024 CREATININE 0.64 12/31/2024 CALCIUM 8.3 (L) 12/31/2024 PROT 5.9 (L) 12/31/2024 ALBUMIN 2.9 (L) 12/31/2024 BILITOT 0.8 12/31/2024 AST 143 (H) 12/31/2024 ALT 64 (H) 12/31/2024 MG 1.4 (L) 10/23/2024 ALKPHOS 122 (H) 12/31/2024 EGFR 107 12/31/2024 Review of Imaging, interpreted CT Angio Chest wo and/or w Contrast Narrative: INDICATION: PE suspected, high prob Exam: Contrast-enhanced chest CT pulmonary angiogram with multiplanar reformats. Comparison: None. Findings: There is no evidence of pulmonary embolism or thoracic aortic dissection. No mediastinal or hilar masses or adenopathy. No pleural or pericardial effusions. Images below the diaphragms reveal no acute abnormalities. Lungs are free of focal consolidation. No pulmonary nodules or parenchymal lesions. Airways are patent. No pneumothorax. Osseous structures reveal no destructive osseous lesions. Impression: Impression: 1. No pulmonary embolism, aortic dissection or acute pulmonary disease. This document has been electronically signed by: Zackary Mejia MD on 11/10/2024 18:02:08 XR Chest 2 Views Narrative: History: Dyspnea. Comparison: 10/23/24, 02/04/24 Findings: PA and lateral views. The cardiomediastinal silhouette, hilar contours and pulmonary vascularity are within normal limits. The lungs are clear. The costophrenic angles are sharp. The regional skeleton is intact. Impression: Impression: No active pulmonary process identified. [place] PA ([id number]) -------- FINAL REPORT -------- Dictated By: Natalya Davila Dictated Date: 11/10/2024 14:20 ET Assigned Physician: Natalya Davila Reviewed and Electronically Signed By: Natalya Davila Signed Date: 11/10/2024 14:21 ET Workstation ID: [id number] Transcribed By: Self Edit Transcribed Date: 11/10/2024 14:[address] Abdomen & Pelvis W Cont - 02/04/24 - 1710 Report Status:Signed CT abdomen and pelvis with IV contrast. COMPARISON: CT abdomen and pelvis dated 07/02/2023 at 12:34AM EST FINDINGS: Partially visualized lung bases are unremarkable. No focal hepatic lesion. Normal gallbladder. Normal spleen. Normal pancreas. Normal adrenal glands. Symmetric renal enhancement. No hydronephrosis. Normal appendix. Oral contrast has progressed into the rectum without evidence of obstruction. Small duodenal diverticulum present along the 2nd portion. No surrounding inflammatory changes. Moderate inflammatory changes along the proximal sigmoid colon in the vicinity of several diverticuli. No free intraperitoneal air or fluid identified. No mesenteric or retroperitoneal lymphadenopathy. Mild calcified plaque present along the abdominal aorta without significant stenosis. Normal appearance of the urinary bladder. IUD appears appropriately positioned, stable. No adnexal mass. Tiny fat containing umbilical hernia. Mild lower lumbar spondylosis. Posterior disc bulge L1-L2 causes moderate spinal canal stenosis at this level, similar to prior imaging. IMPRESSION: 1. Proximal sigmoid colon diverticulitis. No evidence of abscess or free intraperitoneal air. 2. Moderate spinal canal stenosis at L1-L2 secondary to a posterior disc bulge, stable from prior imaging. Review of External Documentation Notes from PCP office Tests ordered - No orders of the defined types were placed in this encounter. IMPRESSION: 1. Carrier of hemochromatosis HFE gene mutation 2. Abnormal serum iron level 3. Iron overload PLAN: 49--year-old lady with family history of hereditary hemochromatosis, C282Y mutation, patient herself is heterozygous. Her prior lab work indicated elevated iron saturation, however this has improved significantly in August. Patient's mutation testing is reviewed in detail and a copy is provided to her. She has a heterozygous mutation, and in the absence of increase in iron saturation or ferritin level going up , may hold off phlebotomy as in the last 2 years Review of recent lab work indicates that iron saturation has increased to 66%. Ferritin has slightly increased slightly --Therefore recommend phlebotomy and removal of 500 mL of blood x 2 times every 2 months apart, [place] lab work prior to next clinic visit -- has been able to do one only ( the next time, pulse was too high) -- Will transfer new orders to [facility] if needed I recommend annual monitoring of iron studies, iron saturation, ferritin levels and liver enzyme test as well. I discussed with the patient regarding avoiding liver toxic, avoiding alcohol use. She should also avoid iron-containing multivitamins. There are no other dietary restrictions. --May need referral to spine and sports/neurosurgery as she has spinal stenosis contributing to back pain from a disc prolapse. I provided her the results of the CT A/P from last year. She may need an MRI of the spine she will discuss with her PCP Clinic follow-up in 6 months, and sooner if new issues Pain Control-- Health Care Proxy-- Joseluis Disla MD Cc Janett Rivera MD documented in this encounter Plan of Treatment Upcoming Encounters Date Type Department Care Team (Late st Contact Info) Description 02/08/2025 2:45 PM EDT Office Visit Orthopedic Surgery - [place] [id number] [address] [facility] [address] [place] [phone] George Raya DPM [address] [facility] [address] [place] [phone] 02/15/2025 4:30 PM EDT Office Visit Adult Medicine - [place] [address] [place] [address] Toni Schroeder PA [address] [place] [address] 06/02/2025 2:30 PM EST Office Visit [facility] [address] [facility] [address] [place] [phone] Farzana Arias MD [address] [facility] [address] [place] [address] 08/02/2025 2:45 PM EDT Office Visit [facility] Hematology Oncology [address] [place] [phone] Joseluis Disla MD [address] [place] [phone] documented as of this encounter Visit Diagnoses Diagnosis Carrier of hemochromatosis HFE gene mutation- Primary Abnormal serum iron level Iron overload Disorders of iron metabolism documented in this encounter Orders Outpatient Referral Count Last Ordered Date [facility] st Ordered Date AMB REFERRAL TO HEMATOLOGY 1 02/01/2025 documented in this encounter Additional Health Concerns Assessment Noted Time PHQ-9 Depression Total Score: 1 10/29/19 25 8:01 PM EDT documented as of this encounter Care Teams Sheet Heater Helper Relationship Specialty Start Date End Date Janett Rivera MD [address] [place] [address] PCP - General 10/23/07 documented as of this encounter
--- NOTE | ~2025-02-03 | XR_ITS ---
CLINICAL HISTORY: sob wheezing 2 view chest x-ray Comparison: None provided Findings: The lungs are clear. Normal size heart. No acute fracture. IMPRESSION: 1. No acute findings. This document has been electronically signed by: Nancy Geiger MD on 02/03/2025 17:41:13
[2025-02-03 17:06] VITALS: BP 115/68; PULSE 110; RESP 20; TEMP 37; O2SAT 95; BMI 24.1
--- NOTE | 2025-02-03 17:08 | ECG_ITS ---
Test Reason : DYSPNEA Blood Pressure : */* mmHG Vent. Rate : 104 BPM Atrial Rate : 104 BPM P-R Int : 146 ms QRS Dur : 86 ms QT Int : 368 ms P-R-T Axes : 46 92 28 degrees QTcB Int : 483 ms Sinus tachycardia Rightward axis Borderline ECG No previous ECGs available Referred By: Saumya Turner Electronically Signed By: VASHTI MORAN MD
--- NOTE | 2025-02-03 17:13 | ED_ITS ---
HPI - SOB/Dyspnea General Chief Complaint: Dyspnea Stated Complaint: difficulty breathing, both leg swelling Time Seen by Provider: 02/03/25 20:02 Source: patient Limitations: no limitations History of Present Illness ED Provider: Terra Morales PA-C HPI Narrative: 49-year-old female with a history of asthma, suspected COPD overlap, ongoing tobacco abuse, seasonal allergies, alcohol use disorder, hemochromatosis, presents with cough and cold symptoms for several months. Patient states she has seen by her primary care provider, and pulmonology. She states she has been using her prescribed nebulizer as directed, yet her symptoms remain refractory. Patient states she will have brief relief of her symptoms, then they return. Patient states she has had acute symptoms for 4 days. Associated dry repetitive cough with the wheezing. Associated chest tightness and shortness of breath. Patient also complains of ongoing bilateral pitting edema. Denies unintentional weight gain, orthopnea. Denies sick contacts with similar symptoms, no fever. Related Data Allergies Allergy/AdvReac Type Severity Reaction Status Date / Time No Known Allergies Allergy Verified 02/03/25 17:06 REPLACED BY [facility] Past Medical History Attestation statement: The following information was validated with the patient. Medical History (Updated 02/04/25 @ 02:40 by Pamela Dover PA-C) Hemochromatosis Alcohol use Tobacco use Asthma Social History Social History Alcohol intake: current Alcohol intake frequency: a few times a week Alcohol type: hard liquor Smoked in Last 30 Days: Yes Substance Use Type: Marijuana Advance Directives: No Advance Directives Information Provided: Yes Patient : No Physical Exam 2 Vital Signs: Vital Signs: Last Vital Signs Temp 98.2 F 02/04/25 01:43 Pulse 110 H 02/04/25 01:43 Resp 21 H 02/04/25 01:43 BP 122/74 02/04/25 01:43 Pulse Ox 95 02/04/25 01:43 O2 Del Method Nasal Cannula 02/04/25 01:43 O2 Flow Rate 2 02/04/25 01:43 BMI result Body Mass Index 24.1 Course Course Course Narrative: This is a Rapid Medical Examination (RME) performed by Pk Turner PA-C in triage. Full HPI, ROS, assessment and treatment plan per primary provider in the Main ED. Hx: 49 yo F here w/ difficulty breathing x 4 mo. has seen PCP/ pulm with multiple med/inhaler changes without improvement. current tobacco smoker approx 6 cigs/daily. intremitteny dry/productive cough PE/vitals: diffuse expiratory wheezes with congested cough. Plan: labs, ekg, cxr Reevaluation(s) Reevaluation #1: Ambulated the patient, she dropped her oxygen saturation 84% on room air, she became tachycardic to 120s. We will be admitting. Given she is a smoker, I am adding on antibiotics, we will obtain blood cultures and lactic. Medications Administered Generic Name Dose Route Start Last Admin Trade Name Freq PRN Reason Stop Dose Admin Azithromycin 500 mg/ Sodium 250 mls @ 125 mls/hr 02/04/25 00:59 02/04/25 01:40 Chloride IV 02/04/25 02:58 125 mls/hr ONCE ONE Administration Discontinued Medications Generic Name Dose Route Start Last Admin Trade Name Freq PRN Reason Stop Dose Admin Albuterol Sulfate 16 puff 02/03/25 17:42 02/03/25 17:45 Albuterol Sulfate 90 Mcg 8 Gm Inhaler INHALE 02/03/25 17:43 16 puff ONCE ONE Administration Albuterol/Ipratropium 3 ml 02/03/25 23:00 02/03/25 23:00 Albuterol/Iprat 2.5/0.5mg 3 Ml Ampul.Neb INHALE 02/03/25 23:01 3 ml ONCE ONE Administration Ceftriaxone Sodium 2 gm 02/04/25 00:59 02/04/25 01:38 Ceftriaxone Sodium 2 Gm Vial IVPUSH 02/04/25 01:00 2 gm ONCE ONE Administration Albuterol Sulfate 5 mg/ 0 mg 02/03/25 20:32 02/03/25 20:33 Albuterol/Ipratropium 3 ml INHALE 02/03/25 20:33 3 each ONCE ONE Administration Magnesium Sulfate 2 gm in 50 mls @ 150 mls/hr 02/03/25 20:11 02/03/25 20:46 Magnesium Sulfate/H2o IV 02/03/25 20:30 Infused ONCE ONE Infusion Methylprednisolone Sodium Succinate 60 mg 02/03/25 20:11 02/03/25 20:20 Methylprednisolone Sod Succ 125 Mg/2 Ml Vial IVPUSH 02/03/25 20:12 60 mg ONCE ONE Administration Medical Decision Making Medical Decision Making [facility] Narrative: 49-year-old female with a history of asthma, suspected COPD overlap, ongoing tobacco abuse, seasonal allergies, alcohol use disorder, hemochromatosis, presents with cough and cold symptoms for several months. Patient states she has seen by her primary care provider, and pulmonology. She states she has been using her prescribed nebulizer as directed, yet her symptoms remain refractory. Patient states she will have brief relief of her symptoms, then they return. Patient states she has had acute symptoms for 4 days. Associated dry repetitive cough with the wheezing. Associated chest tightness and shortness of breath. Patient also complains of ongoing bilateral pitting edema. Denies unintentional weight gain, orthopnea. Denies sick contacts with similar symptoms, no fever. Problem: Asthma, likely COPD, ongoing tobacco abuse, allergies, alcohol use disorder History: Per patient I have considered the following differential diagnoses: Asthma exacerbation, viral syndrome, bronchitis, pneumonia, PE, ACS, new heart failure, hepatic dysfunction, renal dysfunction Plan: Patient here with symptoms of asthma exacerbation, screening labs including viral panel and chest x-ray already obtained. She received inhaler treatment in triage, adding a DuoNeb, steroid and magnesium. In regard to her peripheral edema, she does have elevation in her LFTs, seems consistent with a alcohol driven picture, this could be contributory. It could simply be dependent edema. New heart failure was considered, BNP obtained in his normal. ACS was also considered with report of chest tightness, however she has tight secondary to her asthma exacerbation, trop was negative. And to note, she has minimal risk factors for coronary artery disease; age, tobacco use. There was a pleuritic nature to her discomfort, I am adding on a dimer. I have independently reviewed the following tests: Labs: Slight leukocytosis, not anemic, no left shift, she appears dry, T bili 0.8, AST 148, ALT 53, alk phos 174, troponin less than 2.7, BNP 57, viral panel negative, dimer 176 EKG: Sinus tachycardia, rate of 104, no ischemic changes, no ectopy, QTC 483 Chest x-ray:indings: The lungs are clear. Normal size heart. No acute fracture. IMPRESSION: 1. No acute findings. Differential Diagnosis Differential Diagnoses: The differential diagnosis associated with the presentation includes See medical decision-making Admission/Observation Consideration of admission/observation: Escalation of care including admission/observation considered May require admission Consult Healthcare Provider Management of the patient was discussed with: Hospitalist Lab Data MDM Lab Attestation statement: I reviewed the patient's lab results. 02/03/25 17:38 02/03/25 17:38 Labs: Lab Results 02/03/25 02/03/25 02/04/25 Range/Units 17:38 20:18 00:13 WBC 11.3 H (4.8-10.8) X10*3/uL RBC 3.19 L (4.20-5.50) X10*6/uL Hgb 12.7 (12.0-16.0) g/dl Hct 36.0 L (37.0-47.0) % MCV 112.9 H (80.0-98.0) fL MCH 39.8 H (27.0-33.0) pg MCHC 35.3 H (31.0-35.0) g/dl RDW 15.5 (11.0-16.0) % Plt Count 423 H (160-400) X10*3/uL MPV 8.8 L (9.4-12.3) fL Immature Gran % (Auto) 0.8 H (0.0-0.4) % Neut % (Auto) 51.0 (45-73) % Lymph % (Auto) 41.2 H (20-40) % Faulkner % (Auto) 5.5 (2-11) % Eos % (Auto) 1.0 (0-4) % Baso % (Auto) 0.5 (0-2) % Lymph # (Auto) 4.7 (1.2-4.9) X10*3/uL Faulkner # (Auto) 0.6 (0.1-1.2) X10*3/uL Eos # (Auto) 0.1 (0.0-0.4) X10*3/uL Baso # (Auto) 0.1 (0.0-0.2) X10*3/uL Abs Immat Gran (auto) 0.09 H (0.00-0.03) X10*3/uL Absolute Neuts (auto) 5.8 (2.0-8.3) x10*3/uL Absolute Nucleated RBC 0.000 (0.0-0.012) X10*3/uL Nucleated RBC % (auto) 0.0 (0.0-0.2) /100WBC D-Dimer High Sensitivty 176 NG/ML Sodium 146 H (135-145) mmol/L Potassium 3.6 (3.3-5.1) mmol/L Chloride 103 (96-108) mmol/L Carbon Dioxide 33 H (22-29) mmol/L Anion Gap 14 (12-20) BUN 3 L (9-16) mg/dL Creatinine 0.50 (0.5-1.4) mg/dL Estim Creat Clear Calc 110.1 Estimated GFR > 60 Random Glucose 111 (60-115) mg/dL Lactic Acid (0.5-2.0) mmol/L Calcium 8.4 (8.4-10.2) mg/dL Magnesium 1.8 (1.6-2.6) mg/dL Total Bilirubin 0.8 (0.0-1.0) mg/dL AST 148 H (5-31) U/L ALT 53 H (0-31) U/L Alkaline Phosphatase 174 H (39-117) U/L Troponin I High Sens < 2.7 (<3.5-17.0) ng/L B-Natriuretic Peptide 57 (<100) pg/mL Total Protein 5.8 L (6.5-8.0) g/dL Albumin 3.1 L (3.5-5.0) g/dL Influenza Type A (PCR) NEGATIVE (Negative) Influenza Type B (PCR) NEGATIVE (Negative) RSV RNA Qual (PCR) NEGATIVE (Negative) SARS-CoV-2 RNA (RT-PCR) NEGATIVE (Negative) 02/04/25 Range/Units 01:35 WBC (4.8-10.8) X10*3/uL RBC (4.20-5.50) X10*6/uL Hgb (12.0-16.0) g/dl Hct (37.0-47.0) % MCV (80.0-98.0) fL MCH (27.0-33.0) pg MCHC (31.0-35.0) g/dl RDW (11.0-16.0) % Plt Count (160-400) X10*3/uL MPV (9.4-12.3) fL Immature Gran % (Auto) (0.0-0.4) % Neut % (Auto) (45-73) % Lymph % (Auto) (20-40) % Faulkner % (Auto) (2-11) % Eos % (Auto) (0-4) % Baso % (Auto) (0-2) % Lymph # (Auto) (1.2-4.9) X10*3/uL Faulkner # (Auto) (0.1-1.2) X10*3/uL Eos # (Auto) (0.0-0.4) X10*3/uL Baso # (Auto) (0.0-0.2) X10*3/uL Abs Immat Gran (auto) (0.00-0.03) X10*3/uL Absolute Neuts (auto) (2.0-8.3) x10*3/uL Absolute Nucleated RBC (0.0-0.012) X10*3/uL Nucleated RBC % (auto) (0.0-0.2) /100WBC D-Dimer High Sensitivty NG/ML Sodium (135-145) mmol/L Potassium (3.3-5.1) mmol/L Chloride (96-108) mmol/L Carbon Dioxide (22-29) mmol/L Anion Gap (12-20) BUN (9-16) mg/dL Creatinine (0.5-1.4) mg/dL Estim Creat Clear Calc Estimated GFR Random Glucose (60-115) mg/dL Lactic Acid 8.7 H* (0.5-2.0) mmol/L Calcium (8.4-10.2) mg/dL Magnesium (1.6-2.6) mg/dL Total Bilirubin (0.0-1.0) mg/dL AST (5-31) U/L ALT (0-31) U/L Alkaline Phosphatase (39-117) U/L Troponin I High Sens (<3.5-17.0) ng/L B-Natriuretic Peptide (<100) pg/mL Total Protein (6.5-8.0) g/dL Albumin (3.5-5.0) g/dL Influenza Type A (PCR) (Negative) Influenza Type B (PCR) (Negative) RSV RNA Qual (PCR) (Negative) SARS-CoV-2 RNA (RT-PCR) (Negative) Independent Interpretation I performed an independent interpretation of an: EKG Radiology Impression Discussion of test interpretation with radiology: I have reviewed the radiologist's reading. Critical Care Time Critical Care Time Critical Care Time: Yes Total Critical Care Time: 35 Attestation: I Terra Morales PA-C have personally performed 35 minutes of critical care time not including lines and procedures; chest pain, shortness of breath, asthma/COPD exacerbation, hypoxia, need for IV antibiotics, need for hospital admission Discharge Plan Discharge Clinical Impression: Asthma with exacerbation, Bronchitis, Hypoxia Patient Disposition: Admitted As Inpatient
[2025-02-03 17:41] LABS: MANUAL DIFF FLAG NO
[2025-02-03] MEDS: Albuterol Sulfate 90 MCG 8 GM INHALER 16 PUFF INHALE (17:45)
[2025-02-03 17:54] LABS: Hematocrit 36.0 % (37.0-47.0); Hemoglobin 12.7 g/dl (12.0-16.0); Imm Gran Abs Auto 0.09 X10*3/uL (0.00-0.03); Imm Gran Pct Auto 0.8 % (0.0-0.4); Lymphocytes Absolute Auto 4.7 X10*3/uL (1.2-4.9); Mean Corpuscular HGB Conc 35.3 g/dl (31.0-35.0); Mean Corpuscular Hemoglobin 39.8 pg (27.0-33.0); NRBC Abs Auto 0.000 X10*3/uL (0.0-0.012); NRBC Pct Auto 0.0 /100WBC (0.0-0.2); Platelet Count 423 X10*3/uL (160-400); Red Blood Count 3.19 X10*6/uL (4.20-5.50); White Blood Count 11.3 X10*3/uL (4.8-10.8)
[2025-02-03 18:00] LABS: Mean Corpuscular Volume 112.9 fL (80.0-98.0)
[2025-02-03 18:06] LABS: Alanine Aminotransferase 53 U/L (0-31); Albumin Level 3.1 g/dL (3.5-5.0); Alkaline Phosphatase 174 U/L (39-117); Anion Gap 14 (12-20); Aspartate Amino Transferase 148 U/L (5-31); Blood Urea Nitrogen 3 mg/dL (9-16); Calcium 8.4 mg/dL (8.4-10.2); Carbon Dioxide 33 mmol/L (22-29); Chloride 103 mmol/L (96-108); Creatinine Clr Calc Pharmacy 110.1; Estimated Glomerular Filt Rate > 60; Magnesium 1.8 mg/dL (1.6-2.6); Potassium 3.6 mmol/L (3.3-5.1); Sodium 146 mmol/L (135-145); Total Protein 5.8 g/dL (6.5-8.0)
[2025-02-03 18:12] LABS: B Type Natriuretic Peptide 57 pg/mL (<100)
[2025-02-03 18:14] LABS: Troponin-I High Sensitivity < 2.7 ng/L (<3.5-17.0)
[2025-02-03 20:06] VITALS: BP 127/79; PULSE 107; RESP 12; TEMP 37.1; O2SAT 99
[2025-02-03] MEDS: Magnesium Sulfate/H2O 2 GM/50 ML PIGGYBACK IV (20:23)
--- OUTSIDE RECORDS SUMMARY | 2025-02-03 20:32 | XMS_ITS | Clinical Summary ---
Author Organization 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
--- OUTSIDE RECORDS SUMMARY | 2025-02-03 20:32 | XMS_ITS | Clinical Summary ---
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 07/28/19 22 2026 Active lisinopriL (PRINIVIL,ZESTR IL) 10 mg tabletIndicatio ns:Essential (primary) hypertension TAKE 1 TABLET BY MOUTH EVERY DAY 90 tablet 1 09/26/19 25 Active montelukast (SINGULAIR) 10 mg tablet Take 1 tablet (10 mg total) by mouth at bedtime. 30 each 5 11/12/19 25 2024 Active acetaminophen-c odeine (TYLENOL #3) 300-30 mg per tablet Take 1 tablet by mouth every 6 (six) hours if needed for moderate pain (cough). Max Daily Amount: 4 tablets 20 tablet 11/20/19 25 Active ipratropium-alb uteroL (DUONEB) 0.5-2.5 mg/3 mL nebulizer solution Take 3 mL by nebulization every 6 (six) hours if needed for wheezing. 360 mL 11 12/02/19 25 2025 Active predniSONE (DELTASONE) 20 mg tablet 2 tab po qd x 5 days and 1 tab po qd x 5 days 15 each 12/02/19 25 Active atorvastatin (LIPITOR) 10 mg tablet TAKE 1 TABLET BY MOUTH EVERY DAY 90 tablet 01/21/20 25 Active beclomethasone dipropionate (Qvar RediHaler) 40 mcg/actuation HFA aerosol breath activated inhalerIndicati ons:Moderate persistent asthma, unspecified whether complicated Inhale 2 puffs by mouth 2 (two) times a day. 1 each 12 01/28/20 25 2025 Active atorvastatin (LIPITOR) 10 mg tablet TAKE 1 TABLET BY MOUTH EVERY DAY 90 tablet 06/26/19 25 2024 Discontinued fluticasone furoate-vilante roL (Breo Ellipta) 100-25 mcg/dose inhaler Inhale 1 puff by mouth 1 (one) time each day. 1 each 2 10/31/19 25 2024 Discontinued Active Problems Problem Noted Date Diagnosed Date Reactive airway disease 11/11/2024 Shortness of breath 11/10/2024 Chronic bronchitis, obstructive (CMS/HCC V24, CM S/HCC V28) 10/30/2024 Elevated ferritin 09/30/2024 Intractable back pain 09/30/2024 [...] Encounters Date Type Department Care Team Description 02/03/2025 Telephone Pulmonolgy - [facility] [address] [phone] Farzana Arias MD 02/01/2025 3:00 PM EDT Office Visit [facility] Hematology On[facility] [address] [place] [phone] Joseluis Disla MD 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); Abnormal serum iron level; Iron overload 01/27/2025 1:30 PM EDT [facility] [address] [phone] Farzana Arias MD Moderate persistent asthma, unspecified whether complicated (Primary Dx) 12/24/2024 Telephone [facility] Hematology Oncology [address] [place] [phone] Joseluis Disla MD 12/22/2024 2:45 PM EDT Office Visit Orthopedic Surgery [facility] [address] [phone] George Raya, DPM Plantar fascial fibromatosis (Primary Dx); Equinus contracture of ankle; Neuritis 12/21/2024 Telephone [facility] Hematology Oncology [address] [place] [phone] Joseluis Disla MD 12/14/2024 1:30 PM EDT Office Visit [address] [phone] Farzana Arias MD Moderate persistent asthma, unspecified whether complicated (Primary Dx); Tachycardia 12/01/2024 2:30 PM EDT Office Visit Pul[address] [phone] Farzana Arias MD Moderate persistent asthma with acute exacerbation (Primary Dx); Wheezing 11/19/2024 10:00 AM EDT Office Visit [address] [phone] Toni Schroeder PA Shortness of breath (Primary Dx); Reactive airway disease without complication, unspecified asthma severity, unspecified whether persistent; Chronic bronchitis, obstructive (CMS/HCC V24, CMS/HCC V28); Elevated ferritin; Thrush; Left lower quadrant abdominal pain 11/17/2024 Telephone Pulmonolgy [facility] 175 [facility] [address] [place] [phone] Mandi Kwok MA 11/16/2024 Telephone Adult Medicine [facility] [address] [place] [phone] Janett Rivera MD 11/10/2024 4:25 PM EDT - 11/11/2024 5:56 PM EDT Hospital Encounter [facility] [address] [place] [phone] Eddi Vilchis MD Zipagan, James T, MD Shortness of breath (Primary Dx) Discharge Disposition: Home or Self Care 11/05/2024 2:45 PM EDT Office Visit Orthopedic Surgery [facility] 250 175 [facility] [address] [place] [phone] George Raya, DPM Plantar fascial fibromatosis (Primary Dx); Equinus contracture of ankle; Neuritis from Last 3 Months Immunizations Name Administration [...] Date Site/Laterality Comments HEMORRHOID SURGERY 03/1998 PROCEDURE: [place] INCISION THROMBOSED HEMORRHOID EXTERNAL SECTION 2008 PROCEDURE: [place] DELIVERY ONLY TUBAL LIGATION 03/16/2009 PROCEDURE: HISTORICAL [...] 06/06/2021 DX:Hyperlipidemi a; COMMENT: 06/06/2021 Anal fistula COPD (chronic obstructive pu lmonary disease) (CMS/HCC V24, CMS/HCC V28) Reactive airway disease 11/11/2024 Family History Medical History Relation Name Comments [...] care for your loved ones. For example, child and adolescent therapist or elderly care for an older adult? [...] pont Epidur al Livin g Gonsalo Delivery Location:[facility] Comments:induced 2008 Term 40w 0d 3062 g (108 oz) M CS-LT ranv Epidur al Livin g 8 9 Fernandez Hernandezmirian jose Delivery Location:[facility] Comments:mild pih, arr est dilation, cord x 1 loose Last Filed Vital Signs Vital Sign Reading Time Taken Comments Blood Pressure 118/73 02/01/2025 3:10 PM EDT Pulse 110 02/01/2025 3:10 PM EDT Temperature 37 C (98.6 F) 02/01/2025 3:10 PM EDT Respiratory Rate 16 01/27/2025 1:36 PM EDT Oxygen Saturation 98% 02/01/2025 3:10 PM EDT Inhaled Oxygen Concentration - - Weight 61.2 kg (135 lb) 02/01/2025 3:10 PM EDT Height 154.9 cm (5' 1 ) 02/01/2025 3:10 PM EDT Body Mass Index 25.51 02/01/2025 3:10 PM EDT Plan of Treatment Upcoming Encounters Date Type Department Care Team (Late st Contact Info) Description 02/08/2025 2:45 PM EDT Office Visit Orthopedic Surgery - [facility] 250 175 [facility] [address] [place] [phone] George Raya DPM 175 [facility] [address] [place] [phone] 02/15/2025 4:30 PM EDT Office Visit Adult Medicine - [place] [address] [place] [phone] Toni Schroeder PA [address] [place] [address] 06/02/2025 2:30 PM EST Office Visit Pulmonolgy - [facility] 175 [facility] [address] [place] [phone] Farzana Arias MD 175 [facility] 200 [place] [address] 08/02/2025 2:45 PM EDT Office Visit [facility] Hematology Oncology [address] [place] [phone] Joseluis Disla MD [address] [place] [phone] Health Maintenance Due Date Last Done Comments Hepatitis B Vaccines (1 of 3 - 19+ 3-dose series) 1992 COVID-19 Vaccine ( season) 2025 03/13/2024, 06/23/2021, 10/15/2020, Additional history exists Influenza Vaccine (#1) 2025 , 06/06/2021, 02/09/2019, Additional history exists Social Influencers of Health Screening 08/14/2025 08/14/2024 Hypertension/CHF/CAD Annual BMP Blood Test 12/31/2025 12/31/2024, 11/11/2024, 11/10/2024, Additional history exists Breast Cancer Screening 04/15/2026 04/15/20, 04/15/2023, 04/09/2022, Additional history exists Cholesterol Screening (Lipid Panel) 08/17/2029 08/17/2024, 07/01/2023 Cervical Cancer Screening: HPV 08/20/2029 08/20/2024, 04/12/2020 Cervical Cancer Screening: Pap Smear 08/20/2029 08/20/2024, 08/20/2024, 04/12/2020, Additional history exists DTaP,Tdap,and Td Vaccines (3 - Td or Tdap) 06/06/2031 06/06/2021, 11/30/2010 Colorectal Cancer Screening: Colonoscopy 06/17/2034 06/17/2024 HIV Screening Completed 11/04/2007 Zoster Vaccines Completed 05/16/2024, 03/13/2024 Pneumococcal Vaccine: 50+ Years Completed 08/14/2024 Hepatitis C Screening Completed 08/17/2024 Depression Screening Completed 10/28/2024 HIB Vaccines Aged Out No longer eligi ble based on patient's age to complete this topic HPV Vaccines Aged Out No longer eligi ble based on patient's age to complete this topic Hepatitis A Vaccines Aged Out No long er eligible based on patient's age to complete [...] Procedure Name Priority Date/Time Associated Diagnosis Comments CBC WITH AUTO DIFFERENTIAL Routine 12/31/2024 1:57 PM EDT Carrier of hemochromatosis HFE gene mutation IRON AND TIBC Routine 12/31/2024 1:57 PM EDT Carrier of hemochromatosis HFE gene mutation FERRITIN Routine 12/31/2024 1:57 PM EDT Carrier of hemochromatosis HFE gene mutation CBC AND DIFFERENTIAL Routine 12/31/2024 1:57 PM EDT Carrier of hemochromatosis HFE gene mutation COMPREHENSIVE METABOLIC PANEL Routine 12/31/2024 1:57 PM EDT Carrier of hemochromatosis HFE gene mutation INJECTION TENDON OR LIGAMENT Routine 12/22/2024 2:45 PM EDT Plantar fascial fibromatosis INJECTION TENDON OR LIGAMENT Routine 12/22/2024 2:45 PM EDT Plantar fascial fibromatosis IMMUNOGLOBULIN IGE Routine 12/01/2024 3: 48 PM EDT Moderate persistent asthma with acute exacerbation ALLERGEN RESPIRATORY PROFILE AREA 1 CT,[place], [place] IGE Routine 12/01/2024 3:48 PM EDT Moderate persistent asthma with acute exacerbation ECG ANNOTATED 11/12/2024 BASIC METABOLIC PANEL Routine 11/11/2024 6:12 AM EDT COMPLETE BLOOD COUNT Routine 11/11/2024 6:[address] ANGIO CHEST WO AND/OR W CONTRAST STAT 11/10/2024 5:44 PM EDT Shortness of breath RESPIRATORY VIRUS PANEL MOLECULAR STUDY STAT 11/10/2024 5:13 PM EDT ECG 12-LEAD STAT 11/10/2024 4:33 PM EDT XR CHEST 2 VIEWS STAT 11/10/2024 1:53 PM EDT CBC WITH AUTO DIFFERENTIAL STAT 11/10/2024 1:42 PM EDT BASIC METABOLIC PANEL STAT 11/10/2024 1:42 PM EDT CBC AND DIFFERENTIAL STAT 11/10/2024 1:42 PM EDT HPV WITH REFLEX GENOTYPE Routine 08/20/2024 3:50 PM EDT Encounter for annual routine gynecological examination HEPATITIS C ANTIBODY Routine 08/17/2024 8:49 AM EDT Need for hepatitis C screening test LIPID PANEL WITH REFLEX TO DIRECT LDL Routine 08/17/2024 8:49 AM EDT Mixed hyperlipidemia COLONOSCOPY Routine 06/17/2024 12:13 PM EST Colon cancer screening MG MAMMO DIGITAL SCREENING W JAN BILAT Routine 04/15/2024 3:50 PM EST Encounter for screening mammogram for breast cancer HM HIV SCREENING Routine 11/04/2007 from Last 3 Months or Most Recently Relevant to Health Maintenance Results * (ABNORMAL) CBC auto differential (12/31/2024 1:57 PM EDT) Only the most recent of2 resultswithin the time period is included. WBC 14.6(H) 4.8 - 10.8 K/mcL LAB HEMETOLOGY METHOD 12/31/2024 5:58 PM EDT [facility] RBC 3.30(L) 3.80 - 4.80 M/mcL LAB HEMETOLOGY METHOD 12/31/2024 5:58 PM EDT [facility] Hemoglobin 13.1 11.5 - 16.0 g/dL LAB HEMETOLOGY METHOD 12/31/2024 5:58 PM EDT [facility] Hematocrit 40.5 35.0 - 47.0 % LAB HEMETOLOGY METHOD 12/31/2024 5:58 PM EDT [facility] MCV 123.9(H) 79.0 - 98.0 FL LAB HEMETOLOGY METHOD 12/31/2024 5:58 PM EDT [facility] MCH 40.1(H) 27.0 - 32.0 pcg LAB HEMETOLOGY METHOD 12/31/2024 5:58 PM EDT [facility] MCHC 32.3 32.0 - 37.0 g/dL LAB [facility] RDW 15.4(H) 11.0 - 15.0 % LAB HEMETOLOGY METHOD 12/31/2024 5:58 PM EDT [facility] Platelets 455(H) 130 - 400 K/mcL LAB [facility]OLOGY [facility]24 [facility] MPV 9.7 7.0 - 11.0 FL LAB HEMETOLOGY METHOD 12/31/2024 5:58 [facility] NRBC 0.0 <1.0 % LAB [facility]OLOGY METHOD 12/31/2024 5:58 [facility] NRBC Absolute 0.00 <0.10 K/mcL LAB HEMETOLOGY METHOD 12/31/2024 5:[address] [facility] Neutrophils Relative 61.5 % LAB HEMETOLOGY METHOD 12/31/2024 5:[address] [facility] Lymphocytes Relative 30.7 % LAB HEMETOLOGY METHOD 12/31/2024 5:58 PM EDT [facility] Monocytes Relative 6.4 % LAB HEMETOLOGY METHOD 12/31/2024 5:58 [facility] Eosinophils Relative 0.6 % LAB HEMETOLOGY METHOD 12/31/2024 5:58 [facility] Basophils Relative 0.4 % LAB HEMETOLOGY METHOD 12/31/2024 5:58 [facility] Immature Granulocytes Relative 0.4 % LAB HEMETOLOGY METHOD 12/31/2024 5:58 PM EDT [facility] Neutrophils Absolute 8.72(H) 1.50 - 7.00 K/mcL LAB HEMETOLOGY METHOD 12/31/2024 5:58 PM EDT [facility] Lymphocytes Absolute 4.36 1.00 - 5.00 K/mcL LAB HEMETOLOGY METHOD 12/31/2024 5:58 PM EDT [facility] Monocytes Absolute 0.91 0.20 - 1.00 K/mcL LAB HEMETOLOGY METHOD 12/31/2024 5:58 PM EDT [facility] Eosinophils Absolute 0.09 0.00 - 0.50 K/mcL LAB HEMETOLOGY METHOD 12/31/2024 5:58 PM EDT [facility] Basophils Absolute 0.06 0.00 - 0.20 K/mcL LAB HEMETOLOGY METHOD 12/31/2024 5:58 PM EDT [facility] Immature Granulocytes Absolute 0.05(H) 0.00 - 0.03 K/mcL LAB HEMETOLOGY METHOD 12/31/2024 5:58 PM EDT [facility] Blood Venous blood specimen / Unknown Venipuncture / Unknown 12/31/2024 1:57 PM EDT 12/31/2024 1:57 PM EDT us Subramony Nighat WOOD LAB BLOOD ORDERABLE S Final Result [facility] [address] [place] [address], * (ABNORMAL) Iron and TIBC (12/31/2024 1:57 PM EDT) Iron 190(H) 40 - 150 mcg/dL LAB CHEMISTRY METHOD 12/31/2024 6:01 PM EDT [facility] TIBC 253 250 - 450 mcg/dL LAB CHEMISTRY METHOD 12/31/2024 6:01 PM EDT [facility] Iron Saturation 75(H) 15 - 50 % LAB CHEMISTRY METHOD 12/31/2024 6:01 PM EDT [facility] Blood Venous blood specimen / Unknown Venipuncture / Unknown 12/31/2024 1:57 PM EDT 12/31/2024 1:57 PM EDT us Joseluis Disla MD LAB BLOOD ORDERABLE S Final Result Performing Organization Address [facility]/ZIP Co de Phone Number [facility] [address] [place] [address], [place] [phone] * Ferritin (12/31/2024 1:57 PM EDT) Ferritin 137 8 - 252 ng/mL LAB CHEMISTRY METHOD 12/31/2024 6:01 PM EDT [facility] Blood Venous blood specimen / Unknown Venipuncture / Unknown 12/31/2024 1:57 PM EDT 12/31/2024 1:57 PM EDT us Joseluis Disla MD LAB BLOOD ORDERABLE S Final Result Performing Organization Address [facility]/ZIP Co de Phone Number [facility] [address] [place] [address], [place] [phone] * (ABNORMAL) Comprehensive metabolic panel (12/31/2024 1:57 PM EDT) Sodium 141 133 - 145 mmol/L LAB CHEMISTRY METHOD 12/31/2024 6:08 PM EDT [facility] Potassium 4.2 3.5 - 5.5 mmol/L LAB CHEMISTRY METHOD 12/31/2024 6:08 PM EDT [facility] Chloride 106 96 - 110 mmol/L LAB CHEMISTRY METHOD 12/31/2024 6:08 PM EDT [facility] CO2 31 21 - 32 mmol/L LAB CHEMISTRY METHOD 12/31/2024 6:[address] [facility] Anion Gap 4 3 - 11 LAB CHEMISTRY METHOD 12/31/2024 6:[address] [facility] Glucose 113(H) 70 - 100 mg/dL LAB CHEMISTRY METHOD 12/31/2024 6:[address] [facility] BUN 7 5 - 25 mg/dL LAB CHEMISTRY METHOD 12/31/2024 6:[address] [facility] Creatinine 0.64 0.50 - 1.10 mg/dL LAB CHEMISTRY METHOD 12/31/2024 6:[address] [facility] eGFR 107 >=60 mL/min/1. 73m2 LAB CHEMISTRY METHOD 12/31/2024 6:[address] [facility] Comment:Calculation based on the Chronic Kidney Disease Epidemiology Collaboration (CKD-EPI) equation refit without adjustment for race. BUN/Creatinine Ratio 10.9 LAB CHEMISTRY METHOD 12/31/2024 6:[address] [facility] Calcium 8.3(L) 8.5 - 10.5 mg/dL LAB CHEMISTRY METHOD 12/31/2024 6:[address] [facility] AST (SGOT) 143(H) 10 - 42 unit/L LAB CHEMISTRY METHOD 12/31/2024 6:[address] [facility] ALT (SGPT) 64(H) 10 - 60 unit/L LAB CHEMISTRY METHOD 12/31/2024 6:[address] [facility] Alkaline Phosphatase 122(H) 42 - 121 unit/L LAB CHEMISTRY METHOD 12/31/2024 6:[address] [facility] Total Protein 5.9(L) 6.0 - 8.0 g/dL LAB CHEMISTRY METHOD 12/31/2024 6:[address] [facility] Albumin 2.9(L) 3.2 - 5.0 g/dL LAB CHEMISTRY METHOD 12/31/2024 6:08 PM EDT [facility] Total Bilirubin 0.8 0.0 - 1.4 mg/dL LAB CHEMISTRY METHOD 12/31/2024 6:08 PM EDT [facility] Blood Venous blood specimen / Unknown Venipuncture / Unknown 12/31/2024 1:57 PM EDT 12/31/2024 1:57 PM EDT Joseluis Disla MD LAB BLOOD ORDERABLE S Final Result [facility] [address] [place] [address], * Injection tendon or ligament (12/22/2024 2:45 PM EDT) George Russo DPM - 12/22/2024 2:45 PM EDT George Raya DPM 12/22/2024 5:03 PM Injection tendon or ligament Indications: pain Details: 25 G needle Medications: 0.5 mL lidocaine (PF) 1 %; 20 mg triamcinolone acetonide 40 mg/mL Informed Consent: Site: Foot ligament tendon us George Raya DPM IN CLINIC/BEDSIDE ORDERAB LES Final Result * Injection tendon or ligament (12/22/2024 2:45 PM EDT) George Russo DPM - 12/22/2024 2:45 PM EDT George Raya DPM 12/22/2024 5:03 PM Injection tendon or ligament Indications: pain Details: 25 G needle Medications: 0.5 mL lidocaine (PF) 1 %; 20 mg triamcinolone acetonide 40 mg/mL Informed Consent: Site: Foot ligament tendon us George Raya DPM IN CLINIC/BEDSIDE ORDERAB LES Final Result * (ABNORMAL) Allergen respiratory profile area 1 CT,MA,[place] IgE (12/01/2024 3:48 PM EDT) Alternaria alternata, IgE <0.10 <0.10 kU/L 12/04/2024 3:13 PM EDT [facility] Alternaria alternata Class CLASS 0 12/04/2024 3:13 PM EDT [facility] Aspergillus fumigatus, IgE <0.10 <0.10 kU/L 12/04/2024 3:13 PM EDT [facility] Aspergillus fumigatus Class CLASS 0 12/04/2024 3:13 PM EDT [facility] [place] Grass, IgE <0.10 <0.10 kU/L 12/04/2024 3:13 PM EDT [facility] [place] Grass Class CLASS 0 12/04 3:13 PM EDT [facility] Common Silver Birch, IgE <0.10 <0.10 kU/L 12/04/2024 3:13 PM EDT [facility] Common Silver Birch Class CLASS 0 12/04/2024 3:13 PM EDT [facility] Cat Dander, IgE <0.10 <0.10 kU/L 12/04/2024 3:13 PM EDT [facility] Cat Dander Class CLASS 0 12/05/19 3:13 PM EDT [facility] Cladosporium herbarum, IgE <0.10 <0.10 kU/L 12/04/2024 3:13 PM EDT [facility] Cladosporium herbarum Class CLASS 0 12/04/2024 3:13 PM EDT [facility] Cockroach, Lithuanian, IgE <0.10 <0.10 kU/L 12/04/2024 3:13 PM EDT [facility] Cockroach, Lithuanian Class CLASS 0 12/04/2024 3:13 PM EDT [facility] [place], IgE <0.10 <0.10 kU/L 12/04/2024 3:13 PM EDT [facility] [place] Class CLASS 0 12/05/19 3:13 PM EDT [facility] Dermatophagoides farinae, IgE <0.10 <0.10 kU/L 12/04/2024 3:13 PM EDT [facility] Dermatophagoides farinae Class CLASS 0 12/04/2024 3:13 PM EDT [facility] Dermatophagoides pteronyssinus, IgE <0.10 <0.10 kU/L 12/04/2024 3:13 PM EDT [facility] Dermatophagoides pteronyssinus Class CLASS 0 12/04/2024 3:13 PM EDT [facility] Dog Dander, IgE <0.10 <0.10 kU/L 12/04/2024 3:13 PM EDT [facility] Dog Dander Class CLASS 0 12/05/19 3:13 PM EDT [facility] Elm, IgE <0.10 <0.10 kU/L 12/04/2024 3:13 PM EDT [facility] Elm Class CLASS 0 12/04/2024 3:13 PM EDT [facility] Maple ([place]), IgE <0.10 <0.10 kU/L 12/04/2024 3:13 PM EDT [facility] Maple ([place]) Class CLASS 0 12/04/2024 3:13 PM EDT [facility] Maple Al[employer]za [employer] [place], IgE <0.10 <0.10 kU/L 12/04/2024 3:13 PM EDT [facility] Maple Alianza Syc, [place] Class CLASS 0 12/04/2024 3:13 PM EDT [facility] Mountain Juniper, IgE <0.10 <0.10 kU/L 12/04/2024 3:13 PM EDT [facility] Mountain Juniper Class CLASS 0 12/04/2024 3:13 PM EDT [facility] Mouse Urine Proteins, IgE <0.10 <0.10 kU/L 12/04/2024 3:13 PM EDT [facility] Mouse Urine Proteins Class CLASS 0 12/04/2024 3:13 PM EDT [facility] Mugwort (sagebrush), IgE <0.10 <0.10 kU/L 12/04/2024 3:13 PM EDT [facility] Mugwort (sagebrush) Class CLASS 0 12/04/2024 3:13 PM EDT [facility] [place], IgE <0.10 <0.10 kU/L 12/04/2024 3:13 PM EDT [facility] [place] Class CLASS 0 12/04/2024 3:13 PM EDT [facility] [place], IgE <0.10 <0.10 kU/L 12/04/2024 3:13 PM EDT [facility] [place] Class CLASS 0 12/04/2024 3:13 PM EDT [facility] Penicillium chrysogenum, IgE <0.10 <0.10 kU/L 12/04/2024 3:13 PM EDT [facility] Penicillium chrysogenum Class CLASS 0 12/04/2024 3:13 PM EDT [facility] Common Pigweed, IgE <0.10 <0.10 kU/L 12/04/2024 3:13 PM EDT [facility] Common Pigweed Class CLASS 0 11/24 3:13 PM EDT [facility] Common Ragweed (short), IgE <0.10 <0.10 kU/L 12/04/2024 3:13 PM EDT [facility] Common Ragweed (short) Class CLASS 0 12/04/2024 3:13 PM EDT [facility] Sheep Malcolm, IgE <0.10 <0.10 kU/L 12/04/2024 3:13 PM EDT [facility] Sheep Malcolm Class CLASS 0 2024 3:13 PM EDT [facility] Kei Grass, IgE <0.10 <0.10 kU/L 12/04/2024 3:13 PM EDT [facility] Kei Grass Class CLASS 0 12/04 3:13 PM EDT [facility] [place], IgE <0.10 <0.10 kU/L 12/04/2024 3:13 PM EDT [facility] [place] Class CLASS 0 025 3:13 PM EDT [facility] [place], IgE <0.10 <0.10 kU/L 12/04/2024 3:13 PM EDT [facility] [place] Class CLASS 0 3:13 PM EDT [facility] IgE 136.0(H) <114.0 IU/mL 12/04/2024 3:13 PM EDT [facility] Allergy Interpretation See Below 12/04/2024 3:13 PM EDT [facility] Comment: Level of Allergen CLASS kU/L Specific IgE Antibody ----- 0 <0.10 Undetectable 0/1 0.10 - 0.34 Very Low Level 1 0.35 - 0.69 Low Level 2 0.70 - 3.49 Moderate Level 3 3.50 - 17.4 High Level 4 17.5 - 49.9 Very High Level 5 50.0 - 100.0 Very High Level 6 >100.0 Very High Level Test performed at [facility], [address] , [place] [address] Neelam Bhatia MD, PhD - Peg Driver Blood Venous blood specimen / Unknown Venipuncture / Unknown 12/01/2024 3:48 PM EDT 12/01/2024 3:48 PM EDT Farzana Arias MD LAB BLOOD ORDERABLES Final Resul t [facility] [address] [place] [address] * (ABNORMAL) Immunoglobulin IgE (12/01/2024 3:48 PM EDT) Pathologist [facility] IgE 177.4(H) 0.0 - 158.0 I Unit/mL LAB CHEMISTRY METHOD 12/01/2024 7:27 PM EDT [facility] Blood Venous blood specimen / Unknown Venipuncture / Unknown 12/01/2024 3:48 PM EDT 12/01/2024 3:48 PM EDT Farzana Arias MD LAB BLOOD ORDERABLES Final Resul t [facility] [address] [place] [address], [place] [phone] * ECG-Annotated (11/12/2024) Provider Onbase ECG ORDERABLES Final Result * (ABNORMAL) Complete blood count (11/11/2024 6:12 AM EDT) WBC 11.2(H) 4.8 - 10.8 K/mcL LAB HEMETOLOGY METHOD 11/11/2024 7:[address] [facility] RBC 2.70(L) 3.80 - 4.80 M/mcL LAB HEMETOLOGY METHOD 11/11/2024 7:[address] [facility] Hemoglobin 11.1(L) 11.5 - 16.0 g/dL LAB HEMETOLOGY METHOD 11/11/2024 7:[address] [facility] Hematocrit 32.9(L) 35.0 - 47.0 % LAB HEMETOLOGY METHOD 11/11/2024 7:[address] [facility] MCV 121.0(H) 79.0 - 98.0 FL LAB HEMETOLOGY METHOD 11/11/2024 7:[address] [facility] MCH 40.8(H) 27.0 - 32.0 pcg LAB HEMETOLOGY METHOD 11/11/2024 7:[address] [facility] MCHC 33.7 32.0 - 37.0 g/dL LAB HEMETOLOGY METHOD 11/11/2024 7:[address] [facility] RDW 20.1(H) 11.0 - 15.0 % LAB HEMETOLOGY METHOD 11/11/2024 7:[address] [facility] Platelets 359 130 - 400 K/mcL LAB HEMETOLOGY METHOD 11/11/2024 7:[address] [facility] MPV 9.7 7.0 - 11.0 FL LAB HEMETOLOGY METHOD 11/11/2024 7:[address] [facility] NRBC 0.4 <1.0 % LAB HEMETOLOGY METHOD 11/11/2024 7:[address] [facility] NRBC Absolute 0.05 <0.10 K/mcL LAB HEMETOLOGY METHOD 11/11/2024 7:[address] [facility] Blood Venous blood specimen / Unknown Venipuncture / Unknown 11/11/2024 6:12 AM EDT 11/11/2024 6:29 AM EDT us Eddi Vilchis MD LAB BLOOD ORDERABLES Maliha abraham Result [facility] [address] [place] [address], [place] [phone] * (ABNORMAL) Basic metabolic panel (11/11/2024 6:12 AM EDT) Only the most recent of2 resultswithin the time period is included. Sodium 137 133 - 145 mmol/L LAB CHEMISTRY METHOD 11/11/2024 7:[address] [facility] Potassium 3.7 3.5 - 5.5 mmol/L LAB CHEMISTRY METHOD 11/11/2024 7:[address] [facility] Chloride 99 96 - 110 mmol/L LAB CHEMISTRY METHOD 11/11/2024 7:[address] [facility] CO2 29 21 - 32 mmol/L LAB CHEMISTRY METHOD 11/11/2024 7:[address] [facility] Anion Gap 9 3 - 11 LAB CHEMISTRY METHOD 11/11/2024 7:[address] [facility] Glucose 198(H) 70 - 100 mg/dL LAB CHEMISTRY METHOD 11/11/2024 7:[address] [facility] BUN 3(L) 5 - 25 mg/dL LAB CHEMISTRY METHOD 11/11/2024 7:[address] [facility] Creatinine 0.67 0.50 - 1.10 mg/dL LAB CHEMISTRY METHOD 11/11/2024 7:[address] [facility] eGFR 106 >=60 mL/min/1. 73m2 LAB CHEMISTRY METHOD 11/11/2024 7:[address] [facility] Comment:Calculation based on the Chronic Kidney Disease Epidemiology Collaboration (CKD-EPI) equation refit without adjustment for race. BUN/Creatinine Ratio 4.5 LAB CHEMISTRY METHOD 11/11/2024 7:38 AM EDT [facility] Calcium 8.0(L) 8.5 - 10.5 mg/dL LAB CHEMISTRY METHOD 11/11/2024 7:38 AM EDT [facility] Blood Venous blood specimen / Unknown Venipuncture / Unknown 11/11/2024 6:12 AM EDT 11/11/2024 6:29 AM EDT us Eddi Vilchis MD LAB BLOOD ORDERABLES Maliha l Result [facility] [address] [place] [address], [place] [phone] * CT Angio Chest wo and/or w Contrast (11/10/2024 5:44 PM EDT) Anatomical Region Laterality Modality Body Computed Tomogra phy 11/10/2024 6:02 PM EDT Impressions 11/10/2024 6:02 PM EDT Impression: 1. No pulmonary embolism, aortic dissection or acute pulmonary disease. This document has been electronically signed by: Zackary Mejia MD on 11/10/2024 18:02:08 Narrative 11/10/2024 6:02 PM EDT INDICATION: PE suspected, high prob Exam: Contrast-enhanced [...] Osseous structures reveal no destructive osseous lesions. Procedure Note Zackary Mejia MD - 11/10/2024 INDICATION: PE suspected, high prob Exam: Contrast-enhanced chest CT pulmonary angiogram with multiplanar reformats. Comparison: None. Findings: There is no evidence of pulmonary embolism or thoracic aortic dissection. No mediastinal or hilar masses or adenopathy. No pleural or pericardial effusions. Images below the diaphragms reveal no acute abnormalities. Lungs are free of focal consolidation. No pulmonary nodules orparenchymal lesions. Airways are patent. No pneumothorax. Osseous structures reveal no destructive osseous lesions. IMPRESSION: Impression: 1. No pulmonary embolism, aortic dissection or acute pulmonary disease. This document has been electronically signed by: Zackary Mejia MD on 11/10/2024 18:02:[address] PROCEDURES Final Result * Respiratory virus panel molecular study (11/10/2024 5:13 PM EDT) Adenovirus Detection by PCR Not Detected Not Detected LAB MICROBIOLOGY METHOD 11/10/2024 6:16 PM EDT [facility] Influenza A PCR Not Detected Not Detected LAB MICROBIOLOGY METHOD 11/10/2024 6:16 PM EDT [facility] Influenza B PCR Not Detected Not Detected LAB MICROBIOLOGY METHOD 11/10/2024 6:16 PM EDT [facility] Coronavirus 229E Not Detected Not Detected LAB MICROBIOLOGY METHOD 11/10/2024 6:16 PM EDT [facility] Coronavirus HKU1 Not Detected Not Detected LAB MICROBIOLOGY METHOD 11/10/2024 6:16 PM EDT [facility] Coronavirus OC43 Not Detected Not Detected LAB MICROBIOLOGY METHOD 11/10/2024 6:16 PM EDT [facility] Coronavirus NL63 Not Detected Not Detected LAB MICROBIOLOGY METHOD 11/10/2024 6:16 PM EDT [facility] Parainfluenza Virus 1 Not Detected Not Detected LAB MICROBIOLOGY METHOD 11/10/2024 6:16 PM EDT [facility] Parainfluenza Virus 2 Not Detected Not Detected LAB MICROBIOLOGY METHOD 11/10/2024 6:16 PM EDT [facility] Parainfluenza Virus 3 Not Detected Not Detected LAB MICROBIOLOGY METHOD 11/10/2024 6:16 PM EDT [facility] Parainfluenza Virus 4 Not Detected Not Detected LAB MICROBIOLOGY METHOD 11/10/2024 6:16 PM EDT [facility] RSV PCR Not Detected Not Detected LAB MICROBIOLOGY METHOD 11/10/2024 6:16 PM EDT [facility] Human Metapneumovirus A and B Not Detected Not Detected LAB MICROBIOLOGY METHOD 11/10/2024 6:16 PM EDT [facility] Rhinovirus/Entero virus Not Detected Not Detected LAB MICROBIOLOGY METHOD 11/10/2024 6:16 PM EDT [facility] Bordetella pertussis Not Detected Not Detected LAB MICROBIOLOGY METHOD 11/10/2024 6:16 PM EDT [facility] Bordetella parapertussis Not Detected Not Detected LAB MICROBIOLOGY METHOD 11/10/2024 6:16 PM EDT [facility] Mycoplasma pneumo by PCR Not Detected Not Detected LAB MICROBIOLOGY METHOD 11/10/2024 6:16 PM EDT [facility] Chlamydia pneumoniae Not Detected Not Detected LAB MICROBIOLOGY METHOD 11/10/2024 6:16 PM EDT [facility] SARS COV-2 Not Detected Not Detected LAB MICROBIOLOGY METHOD 11/10/2024 6:16 PM T [facility] Swab Both anterior nares / Unknown Non-blood Collection / Unknown 11/10/2024 5:13 PM EDT 11/10/2024 5:22 PM EDT [facility] - 11/10/2024 6:16 PM EDT Testing was performed using the [employer] Respiratory Pathogen PCR Assay. All results must be correlated with the clinical findings. Results should not be used as the sole basis for diagnosis. False Negative results may occur from the presence of sequence variants in the region targeted by the assay or the presence of inhibitors. Results may be affected by concurrent antiviral/antimicrobial therapy or levels of organisms that are below the limit of detection. Denise CALDERON LAB MICROBIOLOGY - GENER AL ORDERABLES Final Result [facility] ([facility] [[email or web address] [address] [place] [address], [place] [phone] * ECG 12 lead (11/10/2024 4:33 PM EDT) Ventricular Rate ECG 93 BPM GEMUSE Atrial Rate 93 BPM GEMUSE P-R Interval 146 ms GEMUSE QRS Duration 88 ms GEMUSE Q-T Interval 386 ms GEMUSE QTc 479 ms GEMUSE P Wave [place] 63 degrees GEMUSE R [place] 83 degrees GEMUSE T [place] 44 degrees GEMUSE ECG Interpretation Normal sinus rhythm Normal ECG When compared with ECG of 23-OCT-2024 10:27, No significant change was found Confirmed by Marcelino ARAYA JOHN ([id number]) on 11/10/2024 7:27:33 PM GEMUSE 11/10/2024 4:33 PM EDT 11/10/2024 7:27 PM EDT Moisés Ortiz MD ECG ORDERABLES Final Result Performing Organization Address [facility]/ZIP Co de Phone Number GEMUSE * XR Chest 2 Views (11/10/2024 1:53 PM EDT) Anatomical Region Laterality Modality Body Radiographic Chelo ging 11/10/2024 2:20 PM EDT Impressions 11/10/2024 2:21 PM EDT Impression: No active pulmonary process identified. Telebee CALDERON ([id number]) -------- FINAL REPORT -------- Dictated By: Natalya Davila Dictated Date: 11/10/2024 14:20 ET Assigned Physician: Natalya Davila Reviewed and Electronically Signed By: Natalya Davila Signed Date: 11/10/2024 14:21 ET Workstation ID: [id number] Transcribed By: Self Edit Transcribed Date: 11/10/2024 14:20 ET Narrative 11/10/2024 2:21 PM EDT History: Dyspnea. Comparison: 10/23/24, 02/04/24 Findings: PA and lateral views. The cardiomediastinal silhouette, hilar contours and pulmonary vascularity are within normal limits. The lungs are clear. The costophrenic angles are sharp. The regional skeleton is intact. Procedure Note Natalya Davila MD - 11/10/2024 History: Dyspnea. Comparison: 10/23/24, 02/04/24 Findings: PA and lateral views. The cardiomediastinal silhouette, hilar contours andpulmonary vascularity are within normal limits. The lungs are clear. Thecostophrenic angles are sharp. The regional skeleton is intact. IMPRESSION: Impression: No active pulmonary process identified. Telerad YUMIKO ([id number]) -------- FINAL REPORT -------- Dictated By: Natalya Davila Dictated Date: 11/10/2024 14:20 ET Assigned Physician: Natalya Davila Reviewed and Electronically Signed By: Natalya Davila Signed Date: 11/10/2024 14:21 ET Workstation ID: [id number] Transcribed By: Self Edit Transcribed Date: 11/10/2024 14:20 ET Moisés Ortiz MD IMG XR PROCEDURES Final Result * HPV with reflex genotype (08/20/2024 3:50 PM EDT) HPV Negative Negative LAB MICROBIOLOGY METHOD 08/24/2024 2:17 PM EDT [facility] Brushing/Spatula Cervix uteri structure / Unknown 08/20/2024 3:50 PM EDT 08/21/2024 7:17 AM EDT José Miguel Myers CNM LAB MOLECULAR DIAGNOSTICS FRANK DAWN Final Result [facility] [address] [place] [address], [place] [phone] * Hepatitis C antibody (08/17/2024 8:49 AM EDT) [facility] Hepatitis C Antibody Negative Negative LAB CHEMISTRY METHOD 08/17/2024 4:01 PM EDT [facility] Blood Venous blood specimen / Unknown Venipuncture / Unknown 08/17/2024 8:49 AM EDT 08/17/2024 8:49 AM EDT Toni CALDERON LAB BLOOD ORDERABLES Final Res ult [facility] [address] [place] [address], [place] [phone] * (ABNORMAL) Lipid panel with reflex to direct LDL (08/17/2024 8:49 AM EDT) [facility] Cholesterol 233(H) 0 - 200 mg/dL LAB CHEMISTRY METHOD 08/17/2024 2:33 PM EDT [facility] Triglycerides 408(H) 0 - 150 mg/dL LAB CHEMISTRY METHOD 08/17/2024 2:33 PM T [facility] Comment:Results verified by repeat testing HDL 79 >=40 mg/dL LAB CHEMISTRY METHOD 08/17/2024 2:33 PM T [facility] LDL Calculated 72 0 - 100 mg/dL LAB CHEMISTRY METHOD 08/17/2024 2:33 PM T [facility] Comment:Unable to calculate when triglycerides >400 mg/dL. VLDL Cholesterol Alexx 81.6 mg/dL LAB CHEMISTRY METHOD 08/17/2024 2:33 PM EDT [facility] Comment:Unable to calculate when triglycerides >400 mg/dL. Non HDL Chol. (LDL+VLDL) 154(H) <145 mg/dL LAB CHEMISTRY METHOD 08/17/2024 2:33 PM T [facility] Comment:Unable to calculate when triglycerides >400 mg/dL. Chol/HDL Ratio 2.9 0.0 - 4.4 LAB CHEMISTRY METHOD 08/17/2024 2:33 PM EDT [facility] Blood Venous blood specimen / Unknown Venipuncture / Unknown 08/17/2024 8:49 AM EDT 08/17/2024 8:49 AM EDT Toni CALDERON LAB BLOOD ORDERABLES Final Res ult [facility]) [facility] [address] [place] [address], * COLONOSCOPY Anesthesia - MAC; [facility] [[email or web address]] ENDOSCOPY (06/17/2024 12:13 PM EST) Anatomical Region Laterality Modality Endoscopy 06/17/2024 11:5 5 AM EST Impressions 06/17/2024 12:15 PM EST - Anal stricture found on digital rectal exam. - Moderate diverticulosis in the sigmoid colon. There was narrowing of the colon in association with the diverticular opening. - The distal rectum and anal verge are normal on retroflexion view. - No specimens collected. Recommendation: - Written discharge instructions were provided to the patient. - Discharge patient to home. - Repeat colonoscopy in 10 years for screening purposes. - Use original regular Metamucil one teaspoon PO BID. Narrative 06/17/2024 12:15 PM EST [facility] Patient Name: Sven Black Procedure Date: 06/17/2024 11:55 AM Date of : 1975 Age: 49 Gender: Female Note Status: Finalized Attending MD: Dioni Owusu MD, Procedure Date No Time: 06/17/2024 Procedure: Colonoscopy Indications: Screening for colorectal malignant neoplasm Providers: Dioni Owusu MD Referring MD: Dioni Owusu MD Medicines: Monitored Anesthesia Care Complications: No immediate complications. Estimated blood loss: None. Estimated Blood Loss: Estimated blood loss: none. Procedure: Pre-Anesthesia Assessment: - Prior to the procedure, a History and Physical was performed, and patient medications and allergies were reviewed. The patient is competent. The risks and benefits of the procedure and the sedation options and risks were discussed with the patient. All questions were answered and informed consent was obtained. Patient identification and proposed procedure were verified by the physician, the nurse, the cyber legal advisor and the vending service technician in the pre-procedure area in the endoscopy suite. Mental Status Examination: alert and oriented. Airway Examination: normal oropharyngeal airway and neck mobility. Respiratory Examination: clear to auscultation. CV Examination: normal. Prophylactic Antibiotics: The patient does not require prophylactic antibiotics. Prior Anticoagulants: The patient has taken no anticoagulant or antiplatelet agents. ASA Grade Assessment: III - A patient with severe systemic disease. After reviewing the risks and benefits, the patient was deemed in satisfactory condition to undergo the procedure. The anesthesia plan was to use monitored anesthesia care (MAC). Immediately prior to administration of medications, the patient was re-assessed for adequacy to receive sedatives. The heart rate, respiratory rate, oxygen saturations, blood pressure, adequacy of pulmonary ventilation, and response to care were monitored throughout the procedure. The physical status of the patient was re-assessed after the procedure. After I obtained informed consent, the scope was passed under direct vision. Throughout the procedure, the patient's blood pressure, pulse, and oxygen [...] sigmoid colon. There was narrowing of the colon in association with the diverticular opening. The retroflexed view of the distal rectum and anal verge was normal and showed no anal or rectal abnormalities. Procedure Code(s): --- Professional --- G0121, Colorectal cancer screening; colonoscopy on individual not meeting criteria for high risk Diagnosis Code(s): --- Professional --- Z12.11, Encounter for screening for malignant neoplasm of colon CPT copyright 2020 [employer]. All rights reserved. The codes documented in this report are preliminary and upon organic gardening teacher review may be revised to meet current compliance requirements. Dioni Owusu MD 06/17/2024 12:15:50 PM This report has been signed electronically.Dioni Owusu MD Number of Addenda: 0 Note Initiated On: 06/17/2024 11:55 AM Scope Withdrawal Time: 0 hours 8 minutes 12 seconds Scope In: 11:58:16 AM Scope Out: 12:13:29 PM Endoscopy Department at [facility] - [address] [place] [phone] Procedure Note Dioni Owusu MD - 06/17/2024 [facility] Patient Name: Sven Black Procedure Date: 06/17/2024 11:55 AM Date of [...] the physician, the nurse, theanesthetist and the vending service technician in the pre-procedure area in the [...] for malignantneoplasm of colon CPT copyright 2020 [employer]. All rights reserved. The codes documented in this report are preliminary and upon organic gardening teacher reviewmay be revised to meet current compliance requirements. Dioni Owusu MD 06/17/2024 12:15:50 PM This report has been signed electronically.Dioni Owusu MD Number of Addenda: 0 Note Initiated On: 06/17/2024 11:55 AM Scope Withdrawal Time: 0 hours 8 minutes 12 seconds Scope In: 11:58:16 AM Scope Out: 12:13:29 PM Endoscopy Department at [facility] - [address] [place] [phone] IMPRESSION: - Anal stricture found on digital [...] AM EST No mammographic evidence of malignancy. No suspicious interval change. A negative mammogram in the presence of a clinically suspicious palpable abnormality does not preclude the possibility of malignancy or alter the indications for biopsy. ASSESSMENT: BI-RADS 2: BENIGN RECOMMENDATION(S): 1: Routine screening mammogram BILATERAL in 1 year. -------- FINAL REPORT -------- Dictated By: Jeronimo Pearson Dictated Date: 04/16/2024 06:46 ET Assigned Physician: Jeronimo Pearson Reviewed and Electronically Signed By: Jeronimo Pearson Signed Date: 04/16/2024 06:52 ET Workstation ID: [id number] Transcribed By: Self Edit Transcribed Date: 04/16/2024 06:46 ET Narrative 04/16/2024 6:52 AM EST EXAM: SCREENING MAMMOGRAPHY, BILATERAL HISTORY: SCREENING. No additional history. COMPARISON: 04/13/2023, 04/09/2022, 04/05/2021, 04/15/2020 TECHNIQUE: Synthesized CC and MLO projections of each breast. Tomosynthesis of each breast in the CC and MLO projections. ADDITIONAL IMAGING: None Computer-aided detection was employed with the [employer] 3-D. TISSUE DENSITY: There are scattered areas of fibroglandular density. (BI-RADS category B) FINDINGS: RIGHT BREAST: No suspicious mass. No suspicious calcification. No distortion. There are multiple small low density circumscribed round and oval masses which appear unchanged. LEFT BREAST: No suspicious mass. No suspicious calcification. No distortion. There are multiple small low density circumscribed round and oval masses which appear unchanged. Procedure Note Jeronimo Pearson MD - 04/16/2024 EXAM: SCREENING MAMMOGRAPHY, BILATERAL HISTORY: SCREENING. No additional history. COMPARISON: 04/13/2023, 04/09/2022, 04/05/2021, 04/15/2020 TECHNIQUE: Synthesized CC and MLO projections of each breast.Tomosynthesis of each breast in the CC and MLO projections. ADDITIONAL IMAGING: None Computer-aided detection was employed with the [employer] 3-D. TISSUE DENSITY: There are scattered [...] Signed Date: 04/16/2024 06:52 ET Workstation ID: [id number] Transcribed By: Self Edit Transcribed Date: 04/16/2024 06:46 ET Janett Rivera MD IMG BI PROCEDURES Final Result * HIV Screening (11/04/2007) Pathologist [facility] HIV Screening abstracted Historical Provider HEALTH MAINTENANCE Final Result from Last 3 Months or Most Recently Relevant to Health Maintenance Insurance [facility] Advance Directives * Full Code - Default (Latest Code Status on File) Date Activated Date Inactivated Comments 11/10/2024 9:53 PM 11/11/2024 8:01 PM This is orde r is used when code status has not been discussed with the patient, or code status is otherwise unknown/unconfirmed To update the patient's code status, place a code status order. Do not modify or discontinue any currently active code status orders. Care Teams Dinkey Engine Firer/Fireman Relationship Specialty Start Date End Date Janett Rivera MD [address] [place] [id number] PCP - General 10/23/07
--- OUTSIDE RECORDS SUMMARY | 2025-02-03 20:32 | XMS_ITS | Encounter Summary ---
Author Organization [facility] Address [address] [place] [address] Care Team Providers Care Needle Loom Tender Name Role Phone Janett Rivera MD Primary Care Prov ider Reason for Visit * Reason Onset Date Comments Medication 02/03/2025 Encounter Details Date Type Department Care Team ([facility] Contact Info) Description 02/03/2025 Telephone [facility] [place] [address] [facility] [address] [place] [phone] Farzana Arias MD [address] [facility] [facility] [address] [place] [address] Social History Tobacco Use Types Packs/Day Years Used Date Smoking Tobacco: Every Day Cigarettes Smokeless Tobacco: Never Comments:Smoking 3 cigs rand y Alcohol Use Standard Drinks/Week Comments Yes 0 [...] Record ed Within the last 3 months, natalie lilly many times did you visit the emergency [...] care for your loved ones. For example, career law clerk or elderly care for an older adult? [...] AM EST documented as of this encounter Progress Notes * Laura Dahl - 02/03/2025 3:51 PM EDT [employer] fax received for medication response notice Attached to encounter documented in this encounter Plan of Treatment Upcoming Encounters Date Type Department Care Team (Late st Contact Info) Description 02/08/2025 2:45 PM EDT Office Visit Orthopedic Surgery - [place] [address] [facility] [address] [place] [phone] George Raya DPKian [address] [facility] [address] [place] [phone] 02/15/2025 4:30 PM EDT Office Visit Adult Medicine - [place] [address] [place] [phone] Toni Schroeder PA [address] [place] [address] 06/02/2025 2:30 PM EST Office Visit Pulmonolgy - [place] [address] [facility] [address] [place] [phone] Farzana Arias MD 175 [facility] [address] [place] [address] 08/02/2025 2:45 PM EDT Office Visit [facility] Hematology Oncology [address] [place] [phone] Joseluis Disla MD [address] [place] [phone] documented as of this encounter Visit Diagnoses Not on filedocumented in this encounter Additional Health Concerns Assessment Noted Time PHQ-9 Depression Total Score: 1 10/29/19 25 8:01 PM EDT documented as of this encounter Care Teams Needle Loom Tender Relationship Specialty Start Date End Date Janett Rivera MD [address] [place] [address] PCP - General 10/23/07 documented as of this encounter
[2025-02-03] MEDS: Albuterol Sulfate 5 MG, Albuterol/Iprat 2.5/0.5MG 3 ML 3 ML INHALE (20:33)
[2025-02-03 20:35] VITALS: PULSE 98; RESP 21; O2SAT 93
[2025-02-03 21:00] LABS: Resp Syncy Virus RNA Qual PCR NEGATIVE (Negative); SARS COV2 PCR INHOUSE NEGATIVE (Negative)
--- NOTE | 2025-02-03 21:02 | MHC.EDTECH ---
pt's O2 dropped down to 82% RA, after waking up pt and asking her to take deep breaths, O2 went up to 96%. Head of the bed elevated, call duran within reach. RN made aware
[2025-02-03 22:02] VITALS: BP 118/71; PULSE 100; RESP 18; TEMP 36.8; O2SAT 94
[2025-02-03 22:47] VITALS: BP 108/64; PULSE 103; RESP 14; TEMP 36.9; O2SAT 94
[2025-02-03] MEDS: Albuterol/Iprat 2.5/0.5MG 3 ML AMPUL.NEB INHALE (23:00)
[2025-02-03 23:02] VITALS: PULSE 86; RESP 19; O2SAT 94
[2025-02-04] VITALS (17 sets, daily range): BP systolic 103–124; BP diastolic 62–80; PULSE 101–116; RESP 4–24; TEMP 36.2–36.9; O2SAT 84–98; BMI 27.5
[2025-02-04 00:31] LABS: D Dimer High Sensitivity 176 NG/ML
--- NOTE | 2025-02-04 00:47 | MHC.EDTECH ---
ambulation trial at 1210am, patient 96% on RA patient walked the square of the ed, moderate sob with lowest sat 84% heartrate 124.
--- NOTE | 2025-02-04 02:23 | PM.IMHP ---
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 The patient reports that she has had her home inhalers changed multiple times but has not had good relief. Sometimes she will cough to the point where she vomits. She denies any fever or chills. She has pleuritic chest pain with her cough. She was recently treated with a Z-Connor and steroids without significant improvement. She denies any hemoptysis. Review of Systems Constitutional: Constitutional: Denies body ache(s), Denies chills, Denies fatigue, Denies fever(s) and Denies headache(s) Eyes: Eyes: Denies change in vision ENT: Denies headache(s), Denies nasal congestion and Denies sore throat Cardiovascular: Cardiovascular: Reports chest pain, Denies rapid heart rate, Reports leg edema, Denies lightheadedness and Reports dyspnea Respiratory: Respiratory: Reports cough, Reports dyspnea and Reports wheezing Gastrointestinal: Gastrointestinal: Denies abdominal pain, Reports vomiting and Denies hematemesis Genitourinary: Genitourinary: Denies difficulty voiding, Denies dysuria and Denies urinary urgency Musculoskeletal: Musculoskeletal: Denies myalgias Integumentary/Breasts: Skin/Breast: Denies rash Neurologic: Denies confusion and Denies headache(s) Psychiatric: Psychiatric: Denies confusion Endocrine: Endocrine: Denies fatigue Hematologic/Lymphatic: Hematologic/Lymphatic: Denies easy bleeding and Denies easy bruising Allergic/Immunologic: Allergic/Immunologic: Reports wheezing [facility] Medical History (Updated 02/04/25 @ 02:50 by Pamela Dover PA-C) Hemochromatosis Alcohol use Tobacco use Asthma Functional capacity: independent ambulation Social History Alcohol intake: current Alcohol intake frequency: a few times a week Alcohol type: hard liquor Patient Tobacco Use Status: Current everyday Tobacco user Substance Use Type: Marijuana Narrative: Smokes 6 cigarettes per day, 3-4 shots of alcohol a few days per week, smokes marijuana Meds Allergies Allergy/AdvReac Type Severity Reaction Status Date / Time No Known Allergies Allergy Verified 02/03/25 17:06 Active Medications: Current Medications Acetaminophen (Acetaminophen 325 Mg Tablet) 975 mg PO Q6H PRN PRN Reason: Pain, Mild 1-3,fever,headache Albuterol/Ipratropium (Albuterol/Iprat 2.5/0.5mg 3 Ml Ampul.Neb) 3 ml INHALE RQ4H WHILE AWAKE [facility] Calcium Carbonate (Calcium Carbonate 750 Mg Tab.Chew) 750 mg PO Q4H PRN PRN Reason: Heartburn Enoxaparin Sodium (Enoxaparin Sodium 40 Mg/0.4 Ml Syringe) 40 mg SUBCUT Q24H [facility] Azithromycin 500 mg/ Sodium (Chloride) 250 mls @ 125 mls/hr IV ONCE ONE Stop: 02/04/25 02:58 Last Admin: 02/04/25 01:40 Dose: 125 mls/hr Magnesium Hydroxide (Milk Of Magnesia 30 Ml Oral.Susp) 30 ml PO DAILY PRN PRN Reason: Constipation Melatonin (Melatonin 3 Mg Tablet) 6 mg PO BEDTIME PRN PRN Reason: Insomnia Methylprednisolone Sodium Succinate (Methylprednisolone Sod Succ 125 Mg/2 Ml Vial) 60 mg IVPUSH Q8H [facility] Ondansetron HCl (Ondansetron Hcl 4 Mg/2 Ml Vial) 4 mg IVPUSH Q8H PRN PRN Reason: Nausea and Vomiting Oxycodone HCl (Oxycodone Hcl Immed Release 5 Mg Tablet) 5 mg PO Q6H PRN PRN Reason: Pain, Severe (Pain Scale 7-10) Sodium Chloride (0.9 % Sodium Chloride Flush 3 Ml Syringe) 3 ml IVFLUSH QSHIFT [facility] Tramadol HCl (Tramadol Hcl 50 Mg Tablet) 50 mg PO Q6H PRN PRN Reason: Pain, Moderate(Pain Scale 4-6) Physical Exam Vital Signs and Narrative: Vital Signs: Last Vital Signs Temp 98.2 F 02/04/25 01:43 Pulse 110 H 02/04/25 01:43 Resp 21 H 02/04/25 01:43 BP 122/74 02/04/25 01:43 Pulse Ox 95 02/04/25 01:43 O2 Del Method Nasal Cannula 02/04/25 01:43 O2 Flow Rate 2 09/11/25 01:43 BMI result Body Mass Index 24.1 General: AOx3, no acute distress Resp: Mild expiratory wheezing mid lung ramos, no crackles CVS: S1, S2, RRR. normal capillary refill GI: +BS, NT, no distention Skin: Warm, dry Neuro: Cranial nerves II-XII grossly intact bilaterally. Motor grossly intact bilaterally Extremities: No pitting edema Psych: Appropriate affect Const: General: No confusion Orientation/consciousness: No confusion Neuro: General: No confusion Results Labs 02/03/25 17:38 02/03/25 17:38 Labs: Laboratory Results - last 24 hr 02/03/25 02/03/25 02/04/25 17:38 20:18 00:13 MCV 112.9 H MCH 39.8 H MCHC 35.3 H RDW 15.5 Plt Count 423 H MPV 8.8 L Immature Gran % (Auto) 0.8 H Neut % (Auto) 51.0 Lymph % (Auto) 41.2 H [place] % (Auto) 5.5 Eos % (Auto) 1.0 Baso % (Auto) 0.5 Lymph # (Auto) 4.7 [place] # (Auto) 0.6 Eos # (Auto) 0.1 Baso # (Auto) 0.1 Abs Immat Gran (auto) 0.09 H Absolute Neuts (auto) 5.8 Absolute Nucleated RBC 0.000 Nucleated RBC % (auto) 0.0 D-Dimer High Sensitivty 176 Anion Gap 14 Estim Creat Clear Calc 110.1 Estimated GFR > 60 Random Glucose 111 Lactic Acid Calcium 8.4 Magnesium 1.8 Total Bilirubin 0.8 AST 148 H ALT 53 H Alkaline Phosphatase 174 H B-Natriuretic Peptide 57 Total Protein 5.8 L Albumin 3.1 L Influenza Type A (PCR) NEGATIVE Influenza Type B (PCR) NEGATIVE RSV RNA Qual (PCR) NEGATIVE SARS-CoV-2 RNA (RT-PCR) NEGATIVE 02/04/25 01:35 MCV MCH MCHC RDW Plt Count MPV Immature Gran % (Auto) Neut % (Auto) Lymph % (Auto) [place] % (Auto) Eos % (Auto) Baso % (Auto) Lymph # (Auto) [place] # (Auto) Eos # (Auto) Baso # (Auto) Abs Immat Gran (auto) Absolute Neuts (auto) Absolute Nucleated RBC Nucleated RBC % (auto) D-Dimer High Sensitivty Anion Gap Estim Creat Clear Calc Estimated GFR Random Glucose Lactic Acid 8.7 H* Calcium Magnesium Total Bilirubin AST ALT Alkaline Phosphatase B-Natriuretic Peptide Total Protein Albumin Influenza Type A (PCR) Influenza Type B (PCR) RSV RNA Qual (PCR) SARS-CoV-2 RNA (RT-PCR) Assessment and Plan (1) Acute hypoxic respiratory failure: Status: Acute (2) Asthma with COPD with exacerbation: Status: Acute (3) Bronchitis: Status: Acute (4) Acute lactic acidosis: Status: Acute (5) Alcohol use: Status: Acute (6) Tobacco use: Status: Acute Plan Patient is a 49-year-old female with a past medical history significant for 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 Acute hypoxic respiratory failure secondary to asthma/COPD exacerbation with bronchitis - afebrile, tachycardic and tachypneic (likely secondary to albuterol), lactic acid 8.7 (again secondary to significant albuterol), blood cultures x2 pending, no sepsis - chest x-ray negative - COVID and flu negative - BNP normal - D-dimer negative - troponin negative - EKG with sinus tachycardia - patient given Solu-Medrol, multiple doses of albuterol and magnesium in the ED with good improvement - continue DuoNebs q.4h while awake - additional albuterol q.4h p.r.n. - Solu-Medrol 60 mg t.i.d. - started on ceftriaxone and azithromycin in ED, changed to doxycycline for bronchitis - titrate oxygen as needed - procalcitonin pending - monitor CBC and BMP Acute lactic acidosis - lactic acid 8.7 - patient received multiple doses of albuterol in the ED - not likely elevated secondary to sepsis - procalcitonin pending - sepsis focused exam normal - give 1 L LR Alcohol use disorder - patient denies history of alcohol withdrawal, states can go days without withdrawal - LFTs elevated, AST 148, ALT 53, alk-phos 174 - CIWA scores - initiate phenobarb if CIWA scores elevated - addiction med consult Tobacco use disorder - smoking cessation encouraged - nicotine patch Med rec pending Full code VTE prophylaxis: Lovenox Patient with acute hypoxic respiratory failure secondary to acute asthma/COPD exacerbation with bronchitis, requiring admission for at least 2 midnights stay for steroids, breathing treatments and monitoring. Quality Stroke Does the patient have a stroke diagnosis?: No VTE Prior VTE?: No VTE Risk Level:: Medical - moderate - high VTE Device Contraindication: Treatment Not Indicated VTE Drug Contraindication: N/A - Med Ordered
[2025-02-04 02:55] LABS: Procalcitonin 0.08 ng/mL
[2025-02-04 03:39] LABS: Reflex Lactate? Lactic Acid Added
[2025-02-04] MEDS: Lactated Ringers 1,000 ML 999 ML IV (03:41)
[2025-02-04 04:20] LABS: ~Lactic Acid-LAB USE ONLY 8.2 mmol/L (0.5-2.0)
[2025-02-04 04:42] LABS: Hematocrit 33.3 % (37.0-47.0); Hemoglobin 11.7 g/dl (12.0-16.0); Imm Gran Abs Auto 0.02 X10*3/uL (0.00-0.03); Imm Gran Pct Auto 0.2 % (0.0-0.4); Lymphocytes Absolute Auto 0.6 X10*3/uL (1.2-4.9); MANUAL DIFF FLAG SCAN; Mean Corpuscular HGB Conc 35.1 g/dl (31.0-35.0); Mean Corpuscular Hemoglobin 40.1 pg (27.0-33.0); NRBC Abs Auto 0.000 X10*3/uL (0.0-0.012); NRBC Pct Auto 0.0 /100WBC (0.0-0.2); Platelet Count 405 X10*3/uL (160-400); Red Blood Count 2.92 X10*6/uL (4.20-5.50); SCAN SMEAR FLAG 1; White Blood Count 8.5 X10*3/uL (4.8-10.8)
[2025-02-04 04:46] LABS: Mean Corpuscular Volume 114.0 fL (80.0-98.0)
[2025-02-04 05:13] LABS: Anion Gap 22 (12-20); Blood Urea Nitrogen 4 mg/dL (9-16); Calcium 7.5 mg/dL (8.4-10.2); Carbon Dioxide 22 mmol/L (22-29); Chloride 101 mmol/L (96-108); Creatinine Clr Calc Pharmacy 96.6; Estimated Glomerular Filt Rate > 60; Potassium 2.8 mmol/L (3.3-5.1); Sodium 142 mmol/L (135-145)
[2025-02-04 05:58] LABS: Reflex Lactate? 2 Y
[2025-02-04] MEDS: Potassium Chloride/H20 10 MEQ/100 ML PIGGYBACK 100 MEQ IV ×4 (05:59→09:31)
[2025-02-04] MEDS: Lactated Ringers 1,000 ML 80 ML IVCONT ×2 (06:02→17:27)
[2025-02-04 06:09] LABS: Magnesium 1.9 mg/dL (1.6-2.6)
[2025-02-04] MEDS: Thiamine HCL 200 MG in 0.9 % Sodium Chloride 100 ML 204 MG IV (06:10)
[2025-02-04 07:03] LABS: ~Lactic Acid-LAB USE ONLY 7.3 mmol/L (0.5-2.0)
--- NOTE | 2025-02-04 07:08 | PC.NURSE ---
Assumed care of patient. Pt is A+OX4, calm, cooperative. Pt denies SOB at this time,RR even and unlabored, on 2L NC. Pt c/o 10 pain to BLE, ongoing, has some minor swelling to BLE. Pt denies any chest pain.
--- NOTE | 2025-02-04 07:38 | PC.NURSE ---
Pt ambulated to BR without o2, checked o2 when walking into room and it was 95% on RA.
[2025-02-04] MEDS: Albuterol/Iprat 2.5/0.5MG 3 ML AMPUL.NEB INHALE ×4 (07:43→20:02)
[2025-02-04 08:15] LABS: Iron 56 mcg/dL (30-160); Percent Iron Saturation 34 % (15-50); Total Iron Binding Capacity 166 mcg/dL (228-428); Unsaturated Iron Binding 110 ug/dL
[2025-02-04] MEDS: Nicotine 14 MG PATCH.TD24 TRANSDERMA (08:30)
[2025-02-04 08:38] LABS: Venous Blood Gas Refer to POC result
[2025-02-04 08:39] LABS: VBG HCO3 21 mmol/L (22-26); VBG O2 % Saturation 100.0 %
[2025-02-04 08:41] LABS: INTERNATIONAL NORM RATIO 0.9 (0.9-1.1); Prothrombin Time 10.7 SEC (10.9-12.4)
[2025-02-04 08:42] LABS: Ferritin 317 ng/mL (10-250)
--- NOTE | 2025-02-04 08:53 | PHA.MEDREC ---
Addendum entered by Kathi Monroe RPh 02/04/25 09:06: Reviewed by [facility] Original Note: Pharmacy Consult ? Medication Reconciliation Pharmacy has completed the medication reconciliation. Spoke with pt and she confirmed her medications.
[2025-02-04] MEDS: PHENobarbitaL sodium 130 MG/ML IM ONCE 210 MG IM (09:31)
--- NOTE | 2025-02-04 09:52 | P.PNIM_ITS ---
Subjective Subjective Date of Service: 02/04/25 Interval History: sob improving, starting to feel withdrawal Physical Exam 2 Exam: Exam: General: AO X 3, tremulous Resp: CTA bilateral, no accessory muscles used CVS: S1,S2,RRR GI: soft, non tender, non distended Neuro: motor grossly intact, alert Psych: appropriate affect, appropriate insight Vital Signs: Vital Signs: Last Vital Signs Temp 98.4 F 02/04/25 05:56 Pulse 110 H 02/04/25 07:45 Resp 13 02/04/25 07:45 BP 124/80 02/04/25 07:05 Pulse Ox 95 02/04/25 07:37 O2 Del Method Room Air 02/04/25 07:37 O2 Flow Rate 2 02/04/25 07:05 BMI result Body Mass Index 24.1 Objective Data Active Medications Acetaminophen (Acetaminophen 325 Mg Tablet) 975 mg PO Q6H PRN PRN Reason: Pain, Mild 1-3,fever,headache Albuterol Sulfate (Albuterol Sulfate (0.083%) 2.5 Mg/3 Ml Vial.Neb) 2.5 mg INHALE Q4H PRN PRN Reason: Shortness of Breath/Wheezing Albuterol/Ipratropium (Albuterol/Iprat 2.5/0.5mg 3 Ml Ampul.Neb) 3 ml INHALE RQ4H WHILE AWAKE [facility] Last Admin: 02/04/25 07:43 Dose: 3 ml Documented By: JOSE Atorvastatin Calcium (Atorvastatin Calcium 10 Mg Tablet) 10 mg PO DAILY [facility] Calcium Carbonate (Calcium Carbonate 750 Mg Tab.Chew) 750 mg PO Q4H PRN PRN Reason: Heartburn Enoxaparin Sodium (Enoxaparin Sodium 40 Mg/0.4 Ml Syringe) 40 mg SUBCUT Q24H [facility] Last Admin: 02/04/25 08:31 Dose: 40 mg Documented By: TONY Folic Acid (Folic Acid 1 Mg Tablet) 1 mg PO DAILY [facility] Last Admin: 02/04/25 08:29 Dose: 1 mg Documented By: TONY Doxycycline Hyclate 100 mg/ (Sodium Chloride) 250 mls @ 166.67 mls/hr IV BID [facility] Last Admin: 02/04/25 08:44 Dose: 166.67 mls/hr Documented By: TONY Potassium Chloride (Potassium Chloride/H20) 10 meq in 100 mls @ 100 mls/hr IV Q1H [facility] Stop: 02/04/25 09:59 Last Admin: 02/04/25 09:31 Dose: 100 mls/hr Documented By: TONY Lactated Ringer's (Lr) 1,000 mls @ 80 mls/hr IVCONT .[id number] [facility] Last Admin: 02/04/25 06:02 Dose: 80 mls/hr Documented By: SKINNY Magnesium Hydroxide (Milk Of Magnesia 30 Ml Oral.Susp) 30 ml PO DAILY PRN PRN Reason: Constipation Melatonin (Melatonin 3 Mg Tablet) 6 mg PO BEDTIME PRN PRN Reason: Insomnia Methylprednisolone Sodium Succinate (Methylprednisolone Sod Succ 125 Mg/2 Ml Vial) 60 mg IVPUSH Q8H [facility] Last Admin: 02/04/25 03:40 Dose: 60 mg Documented By: SKINNY Montelukast Sodium (Montelukast Sodium 10 Mg Tablet) 10 mg PO BEDTIME [facility] Multivitamins/Vitamin C (Multivitamin Tablet) 1 tab PO DAILY [facility] Last Admin: 02/04/25 08:30 Dose: 1 tab Documented By: TONY Nicotine (Nicotine 14 Mg Patch.Td24) 14 mg TRANSDERMA DAILY [facility] Last Admin: 02/04/25 08:30 Dose: 14 mg Documented By: TONY Omeprazole (Omeprazole 20 Mg Capsule.Dr) 20 mg PO DAILY@0630 [facility] Ondansetron HCl (Ondansetron Hcl 4 Mg/2 Ml Vial) 4 mg IVPUSH Q8H PRN PRN Reason: Nausea and Vomiting Oxycodone HCl (Oxycodone Hcl Immed Release 5 Mg Tablet) 5 mg PO Q6H PRN PRN Reason: Pain, Severe (Pain Scale 7-10) Pharmacy Consult (Consult Rx Etoh Phenob Im/Po) 1 each MISCELLANE ONCE PRN; Protocol PRN Reason: Consult order Phenobarbital (Phenobarbital 15 Mg Tablet) 45 mg PO BID [facility]; Protocol Stop: 02/06/25 21:01 Phenobarbital (Phenobarbital 15 Mg Tablet) 15 mg PO BID [facility]; Protocol Stop: 02/08/25 21:01 Phenobarbital (Phenobarbital 15 Mg Tablet) 15 mg PO DAILY [facility]; Protocol Stop: 02/10/25 09:01 Phenobarbital Sodium (Phenobarbital Sodium 130 Mg/Ml Im Once) 210 mg IM ONCE ONE; Protocol Stop: 02/04/25 10:01 Last Admin: 02/04/25 09:31 Dose: 210 mg Documented By: TONY Phenobarbital Sodium (Phenobarbital Sodium 130 Mg/Ml Vial Im Q3hx2) 157 mg IM Q3H [facility]; Protocol Stop: 02/04/25 16:01 Sodium Chloride (0.9 % Sodium Chloride Flush 3 Ml Syringe) 3 ml IVFLUSH QSHIFT [facility] Last Admin: 02/04/25 07:09 Dose: Not Given Documented By: TONY Non-Admin Reason: IV Running Thiamine HCl (Thiamine Hcl 100 Mg Tablet) 100 mg PO DAILY [facility] Tramadol HCl (Tramadol Hcl 50 Mg Tablet) 50 mg PO Q6H PRN PRN Reason: Pain, Moderate(Pain Scale 4-6) Vitamin D (Cholecalciferol (Vitamin D3) 25 Mcg Tablet) 25 mcg PO DAILY [facility] Labs 02/04/25 03:55 02/04/25 03:55 Labs: Laboratory Results - last 24 hr 02/03/25 02/03/25 02/04/25 17:38 20:18 00:13 MCV 112.9 H MCH 39.8 H MCHC 35.3 H RDW 15.5 Plt Count 423 H MPV 8.8 L Immature Gran % (Auto) 0.8 H Neut % (Auto) 51.0 Lymph % (Auto) 41.2 H [place] % (Auto) 5.5 Eos % (Auto) 1.0 Baso % (Auto) 0.5 Lymph # (Auto) 4.7 [place] # (Auto) 0.6 Eos # (Auto) 0.1 Baso # (Auto) 0.1 Abs Immat Gran (auto) 0.09 H Absolute Neuts (auto) 5.8 Absolute Nucleated RBC 0.000 Nucleated RBC % (auto) 0.0 Smear Tech's Comments Smear Path Review SEE NOTE PT INR D-Dimer High Sensitivty 176 VBG pH VBG pCO2 VBG pO2 VBG HCO3 VBG O2 Saturation VBG Base Excess Anion Gap 14 Estim Creat Clear Calc 110.1 Estimated GFR > 60 Random Glucose 111 Lactic Acid Lactic Acid F/U @ 2Hr Lactic Acid F/U @ 4Hr Calcium 8.4 Magnesium 1.8 Iron TIBC % Saturation Unsat Iron Binding Ferritin Total Bilirubin 0.8 AST 148 H ALT 53 H Alkaline Phosphatase 174 H B-Natriuretic Peptide 57 Total Protein 5.8 L Albumin 3.1 L Procalcitonin 0.08 Ethyl Alcohol Influenza Type A (PCR) NEGATIVE Influenza Type B (PCR) NEGATIVE RSV RNA Qual (PCR) NEGATIVE SARS-CoV-2 RNA (RT-PCR) NEGATIVE 02/04/25 02/04/25 02/04/25 01:35 03:55 06:32 MCV 114.0 H MCH 40.1 H MCHC 35.1 H RDW 15.8 Plt Count 405 H MPV 9.3 L Immature Gran % (Auto) 0.2 Neut % (Auto) 91.0 H Lymph % (Auto) 7.4 L [place] % (Auto) 1.3 L Eos % (Auto) 0.0 Baso % (Auto) 0.1 Lymph # (Auto) 0.6 L [place] # (Auto) 0.1 Eos # (Auto) 0.0 Baso # (Auto) 0.0 Abs Immat Gran (auto) 0.02 Absolute Neuts (auto) 7.7 Absolute Nucleated RBC 0.000 Nucleated RBC % (auto) 0.0 Smear Tech's Comments VERIFIED Smear Path Review PT INR D-Dimer High Sensitivty VBG pH VBG pCO2 VBG pO2 VBG HCO3 VBG O2 Saturation VBG Base Excess Anion Gap 22 H Estim Creat Clear Calc 96.6 Estimated GFR > 60 Random Glucose 193 H Lactic Acid 8.7 H* Lactic Acid F/U @ 2Hr 8.2 H* Lactic Acid F/U @ 4Hr 7.3 H* Calcium 7.5 L D Magnesium 1.9 Iron 56 TIBC 166 L % Saturation 34 Unsat Iron Binding 110 Ferritin 317 H Total Bilirubin AST ALT Alkaline Phosphatase B-Natriuretic Peptide Total Protein Albumin Procalcitonin Ethyl Alcohol Influenza Type A (PCR) Influenza Type B (PCR) RSV RNA Qual (PCR) SARS-CoV-2 RNA (RT-PCR) 02/04/25 02/04/25 08:28 08:35 MCV MCH MCHC RDW Plt Count MPV Immature Gran % (Auto) Neut % (Auto) Lymph % (Auto) [place] % (Auto) Eos % (Auto) Baso % (Auto) Lymph # (Auto) [place] # (Auto) Eos # (Auto) Baso # (Auto) Abs Immat Gran (auto) Absolute Neuts (auto) Absolute Nucleated RBC Nucleated RBC % (auto) Smear Tech's Comments Smear Path Review PT 10.7 L INR 0.9 D-Dimer High Sensitivty VBG pH 7.49 H VBG pCO2 27 VBG pO2 157 VBG HCO3 21 L VBG O2 Saturation 100.0 VBG Base Excess -0.6 Anion Gap Estim Creat Clear Calc Estimated GFR Random Glucose Lactic Acid Lactic Acid F/U @ 2Hr Lactic Acid F/U @ 4Hr Calcium Magnesium Iron TIBC % Saturation Unsat Iron Binding Ferritin Total Bilirubin AST ALT Alkaline Phosphatase B-Natriuretic Peptide Total Protein Albumin Procalcitonin Ethyl Alcohol < 10 Influenza Type A (PCR) Influenza Type B (PCR) RSV RNA Qual (PCR) SARS-CoV-2 RNA (RT-PCR) Assessment and Plan (1) Alcohol use: Status: Acute Plan 49F PMH ETOH dependence, heterozygous for hemochromatosis, fatty liver, moderate persistent asthma/COPD, presented with sob Acute hypoxic respiratory failure due to moderate persistent asthma/COPD with acute decompensation due to rhino virus Continue steroids, DuoNebs, doxy Acute lactic acidosis Not due to sepsis, likely due to alcohol, liver disease and albuterol Alcohol dependence with withdrawal Phenobarb, CIWA Noted to be heterozygous for hemochromatosis Iron sat normal, most likely alcohol is primary contributor to fatty liver Acute hypomagnesemia and hypokalemia Replace and monitor DVT prophylaxis with Lovenox Full Code reason for continued hospitalization: Active withdrawal Quality Stroke Does the patient have a stroke diagnosis?: No VTE Prior VTE?: No VTE Risk Level:: Medical - moderate - high VTE Device Contraindication: Treatment Not Indicated VTE Drug Contraindication: N/A - Med Ordered
--- NOTE | 2025-02-04 10:09 | PC.NURSE ---
pt's oxygen dropped to 88% while sleeping, put back on the 2l via nasal cannual
--- NOTE | 2025-02-04 10:20 | PC.NURSE ---
reached out to provider regarding elevated lactate level ongoing. Providers sts patient will be re-checked in the AM.
[2025-02-04] MEDS: PHENobarbitaL sodium 130 MG/ML VIAL IM Q3Hx2 157 MG IM ×2 (12:41→15:35)
--- NOTE | 2025-02-04 14:07 | HO.ADDICT_ITS ---
History of Present Illness Date of Service: 02/04/2025 Chief Complaint: asthma/COPD Reason for Consult: AUD Sources of Information: patient interviewed and chart reviewed HPI Narrative: Patient is a 49 year old Caucaisan female with medical history including COPD, medically admitted with COPD exacerbation. Consult requested as patient reported drinking several days for week. While in ED, patient developed alcohol withdrawal sx and phenobarbital taper was initiated. Patient seen in room 6 of main ED. Sleeping upon approach, however woke to voice. She reprots that she has been drinking 5 shots daily 3-4 days per week. Drinking increased after 2020 She states she has attempted to cut down or stop, but has found it difficult. Discussed withdrawal sx, and initially she didn't realize she was experiencing mild withdrawal sx at home, however she has noted her tongue feeling funny and some anxiety. Denies any history of seizures. Denies any history of treatment Slight tremor noted. Denies nausea, loose stools. No diaphoresis or restless noted. HR elevated, however she also had just completed a nebulizer treatment. Medical Evaluation Reviewed: Yes Review of Systems Constitutional: Reports as per HPI Diagnostics Vital Signs (24Hr): Vital Signs - 24 hr 02/03/25 17:06 02/03/25 20:06 02/03/25 20:35 Temperature 98.6 F 98.7 F Pulse Rate 110 H 107 H 98 Respiratory Rate 20 12 21 H Blood Pressure 115/68 127/79 Pulse Oximetry 95 99 Oxygen Delivery Method Room Air Room Air Oxygen Flow Rate 02/03/25 22:02 02/03/25 22:47 02/03/25 23:02 Temperature 98.2 F 98.4 F Pulse Rate 100 103 H 86 Respiratory Rate 18 14 19 Blood Pressure 118/71 108/64 Pulse Oximetry 94 94 Oxygen Delivery Method Room Air Room Air Oxygen Flow Rate 02/04/25 00:14 02/04/25 01:42 02/04/25 01:43 Temperature 98.4 F 98.2 F Pulse Rate 112 H 110 H Respiratory Rate 24 H 21 H Blood Pressure 124/74 122/74 Pulse Oximetry 94 84 L 95 Oxygen Delivery Method Room Air Nasal Cannula Oxygen Flow Rate 2 02/04/25 03:47 02/04/25 05:56 02/04/25 07:05 Temperature 98.4 F 98.4 F Pulse Rate 106 H 103 H 105 H Respiratory Rate 22 H 17 18 Blood Pressure 106/64 116/78 124/80 Pulse Oximetry 98 96 96 Oxygen Delivery Method Nasal Cannula Nasal Cannula Nasal Cannula Oxygen Flow Rate 2 2 2 02/04/25 07:37 02/04/25 07:45 02/04/25 10:11 Temperature Pulse Rate 110 H Respiratory Rate 13 Blood Pressure Pulse Oximetry 95 88 L Oxygen Delivery Method Room Air Room Air Oxygen Flow Rate 02/04/25 11:42 02/04/25 12:44 Temperature Pulse Rate 116 H 112 H Respiratory Rate 20 4 L Blood Pressure 121/69 Pulse Oximetry 92 Oxygen Delivery Method Room Air Oxygen Flow Rate BMI result Body Mass Index 24.1 Labs 02/05/25 05:46 02/05/25 05:46 Labs: Laboratory Results - last 48 hr 02/03/25 02/03/25 02/04/25 17:38 20:18 00:13 WBC 11.3 H RBC 3.19 L Hgb 12.7 Hct 36.0 L MCV 112.9 H MCH 39.8 H MCHC 35.3 H RDW 15.5 Plt Count 423 H MPV 8.8 L Immature Gran % (Auto) 0.8 H Neut % (Auto) 51.0 Lymph % (Auto) 41.2 H [place] % (Auto) 5.5 Eos % (Auto) 1.0 Baso % (Auto) 0.5 Lymph # (Auto) 4.7 [place] # (Auto) 0.6 Eos # (Auto) 0.1 Baso # (Auto) 0.1 Abs Immat Gran (auto) 0.09 H Absolute Neuts (auto) 5.8 Absolute Nucleated RBC 0.000 Nucleated RBC % (auto) 0.0 Smear Tech's Comments Smear Path Review SEE NOTE PT INR D-Dimer High Sensitivty 176 VBG pH VBG pCO2 VBG pO2 VBG HCO3 VBG O2 Saturation VBG Base Excess Sodium 146 H Potassium 3.6 Chloride 103 Carbon Dioxide 33 H Anion Gap 14 BUN 3 L Creatinine 0.50 Estim Creat Clear Calc 110.1 Estimated GFR > 60 Random Glucose 111 Lactic Acid Lactic Acid F/U @ 2Hr Lactic Acid F/U @ 4Hr Calcium 8.4 Magnesium 1.8 Iron TIBC % Saturation Unsat Iron Binding Ferritin Total Bilirubin 0.8 AST 148 H ALT 53 H Alkaline Phosphatase 174 H Troponin I High Sens < 2.7 B-Natriuretic Peptide 57 Total Protein 5.8 L Albumin 3.1 L Procalcitonin 0.08 Ethyl Alcohol Influenza Type A (PCR) NEGATIVE Influenza Type B (PCR) NEGATIVE RSV RNA Qual (PCR) NEGATIVE SARS-CoV-2 RNA (RT-PCR) NEGATIVE 02/04/25 02/04/25 02/04/25 01:35 03:55 06:32 WBC 8.5 RBC 2.92 L Hgb 11.7 L Hct 33.3 L MCV 114.0 H MCH 40.1 H MCHC 35.1 H RDW 15.8 Plt Count 405 H MPV 9.3 L Immature Gran % (Auto) 0.2 Neut % (Auto) 91.0 H Lymph % (Auto) 7.4 L [place] % (Auto) 1.3 L Eos % (Auto) 0.0 Baso % (Auto) 0.1 Lymph # (Auto) 0.6 L [place] # (Auto) 0.1 Eos # (Auto) 0.0 Baso # (Auto) 0.0 Abs Immat Gran (auto) 0.02 Absolute Neuts (auto) 7.7 Absolute Nucleated RBC 0.000 Nucleated RBC % (auto) 0.0 Smear Tech's Comments VERIFIED Smear Path Review PT INR D-Dimer High Sensitivty VBG pH VBG pCO2 VBG pO2 VBG HCO3 VBG O2 Saturation VBG Base Excess Sodium 142 Potassium 2.8 L* D Chloride 101 Carbon Dioxide 22 Anion Gap 22 H BUN 4 L Creatinine 0.57 Estim Creat Clear Calc 96.6 Estimated GFR > 60 Random Glucose 193 H Lactic Acid 8.7 H* Lactic Acid F/U @ 2Hr 8.2 H* Lactic Acid F/U @ 4Hr 7.3 H* Calcium 7.5 L D Magnesium 1.9 Iron 56 TIBC 166 L % Saturation 34 Unsat Iron Binding 110 Ferritin 317 H Total Bilirubin AST ALT Alkaline Phosphatase Troponin I High Sens B-Natriuretic Peptide Total Protein Albumin Procalcitonin Ethyl Alcohol Influenza Type A (PCR) Influenza Type B (PCR) RSV RNA Qual (PCR) SARS-CoV-2 RNA (RT-PCR) 02/04/25 02/04/25 08:28 08:35 WBC RBC Hgb Hct MCV MCH MCHC RDW Plt Count MPV Immature Gran % (Auto) Neut % (Auto) Lymph % (Auto) [place] % (Auto) Eos % (Auto) Baso % (Auto) Lymph # (Auto) [place] # (Auto) Eos # (Auto) Baso # (Auto) Abs Immat Gran (auto) Absolute Neuts (auto) Absolute Nucleated RBC Nucleated RBC % (auto) Smear Tech's Comments Smear Path Review PT 10.7 L INR 0.9 D-Dimer High Sensitivty VBG pH 7.49 H VBG pCO2 27 VBG pO2 157 VBG HCO3 21 L VBG O2 Saturation 100.0 VBG Base Excess -0.6 Sodium Potassium Chloride Carbon Dioxide Anion Gap BUN Creatinine Estim Creat Clear Calc Estimated GFR Random Glucose Lactic Acid Lactic Acid F/U @ 2Hr Lactic Acid F/U @ 4Hr Calcium Magnesium Iron TIBC % Saturation Unsat Iron Binding Ferritin Total Bilirubin AST ALT Alkaline Phosphatase Troponin I High Sens B-Natriuretic Peptide Total Protein Albumin Procalcitonin Ethyl Alcohol < 10 Influenza Type A (PCR) Influenza Type B (PCR) RSV RNA Qual (PCR) SARS-CoV-2 RNA (RT-PCR) Mental Status Exam Mental Status Exam Level of Consciousness: Awake, Appropriate and Alert Patient Behavior: Appropriate Affect Description: Calm Speech Pattern: Clear Hallucinations: None Delusions: Not Present Thought Process: Intact Thought Content: positive for Intact Judgement: Good Medications Medications Current Medications Acetaminophen (Acetaminophen 325 Mg Tablet) 975 mg PO Q6H PRN PRN Reason: Pain, Mild 1-3,fever,headache Albuterol Sulfate (Albuterol Sulfate (0.083%) 2.5 Mg/3 Ml Vial.Neb) 2.5 mg INHALE Q4H PRN PRN Reason: Shortness of Breath/Wheezing Albuterol/Ipratropium (Albuterol/Iprat 2.5/0.5mg 3 Ml Ampul.Neb) 3 ml INHALE RQ4H WHILE AWAKE [facility] Last Admin: 02/04/25 11:41 Dose: 3 ml Atorvastatin Calcium (Atorvastatin Calcium 10 Mg Tablet) 10 mg PO DAILY [facility] Calcium Carbonate (Calcium Carbonate 750 Mg Tab.Chew) 750 mg PO Q4H PRN PRN Reason: Heartburn Enoxaparin Sodium (Enoxaparin Sodium 40 Mg/0.4 Ml Syringe) 40 mg SUBCUT Q24H [facility] Last Admin: 02/04/25 08:31 Dose: 40 mg Folic Acid (Folic Acid 1 Mg Tablet) 1 mg PO DAILY [facility] Last Admin: 02/04/25 08:29 Dose: 1 mg Doxycycline Hyclate 100 mg/ (Sodium Chloride) 250 mls @ 166.67 mls/hr IV BID [facility] Last Infusion: 02/04/25 10:26 Dose: Infused Lactated Ringer's (Lr) 1,000 mls @ 80 mls/hr IVCONT .[id number] [facility] Last Admin: 02/04/25 06:02 Dose: 80 mls/hr Magnesium Hydroxide (Milk Of Magnesia 30 Ml Oral.Susp) 30 ml PO DAILY PRN PRN Reason: Constipation Melatonin (Melatonin 3 Mg Tablet) 6 mg PO BEDTIME PRN PRN Reason: Insomnia Methylprednisolone Sodium Succinate (Methylprednisolone Sod Succ 125 Mg/2 Ml Vial) 40 mg IVPUSH Q12H [facility] Last Admin: 02/04/25 10:25 Dose: 40 mg Montelukast Sodium (Montelukast Sodium 10 Mg Tablet) 10 mg PO BEDTIME [facility] Multivitamins/Vitamin C (Multivitamin Tablet) 1 tab PO DAILY [facility] Last Admin: 02/04/25 08:30 Dose: 1 tab Nicotine (Nicotine 14 Mg Patch.Td24) 14 mg TRANSDERMA DAILY [facility] Last Admin: 02/04/25 08:30 Dose: 14 mg Omeprazole (Omeprazole 20 Mg Capsule.Dr) 20 mg PO DAILY@0630 [facility] Ondansetron HCl (Ondansetron Hcl 4 Mg/2 Ml Vial) 4 mg IVPUSH Q8H PRN PRN Reason: Nausea and Vomiting Oxycodone HCl (Oxycodone Hcl Immed Release 5 Mg Tablet) 5 mg PO Q6H PRN PRN Reason: Pain, Severe (Pain Scale 7-10) Pharmacy Consult (Consult Rx Etoh Phenob Im/Po) 1 each MISCELLANE ONCE PRN; Protocol PRN Reason: Consult order Phenobarbital (Phenobarbital 15 Mg Tablet) 45 mg PO BID [facility]; Protocol Stop: 02/06/25 21:01 Phenobarbital (Phenobarbital 15 Mg Tablet) 15 mg PO BID [facility]; Protocol Stop: 02/08/25 21:01 Phenobarbital (Phenobarbital 15 Mg Tablet) 15 mg PO DAILY [facility]; Protocol Stop: 02/10/25 09:01 Phenobarbital Sodium (Phenobarbital Sodium 130 Mg/Ml Vial Im Q3hx2) 157 mg IM Q3H [facility]; Protocol Stop: 02/04/25 16:01 Last Admin: 02/04/25 12:41 Dose: 157 mg Sodium Chloride (0.9 % Sodium Chloride Flush 3 Ml Syringe) 3 ml IVFLUSH QSHIFT [facility] Last Admin: 02/04/25 07:09 Dose: Not Given Thiamine HCl (Thiamine Hcl 100 Mg Tablet) 100 mg PO DAILY [facility] Tramadol HCl (Tramadol Hcl 50 Mg Tablet) 50 mg PO Q6H PRN PRN Reason: Pain, Moderate(Pain Scale 4-6) Last Admin: 02/04/25 12:41 Dose: 50 mg Vitamin D (Cholecalciferol (Vitamin D3) 25 Mcg Tablet) 25 mcg PO DAILY [facility] Allergies Allergies Allergy/AdvReac Type Severity Reaction Status Date / Time No Known Allergies Allergy Verified 02/03/25 17:06 Assessment & Plan Assessment & Plan (1) Alcohol withdrawal: Qualifiers: Complication of substance-induced condition: uncomplicated Qualified Code(s): F10.930 - Alcohol use, unspecified with withdrawal, uncomplicated Status: Acute Code(s): F10.939 - Alcohol use, unspecified with withdrawal, unspecified Assessment and Plan: * phenobarbital taper in place and patient reports feeling better since starting * thiamine and folic acid * will follow up with patient in AM to further discuss goals related to alcohol use. Total time managing care of this patient today __30__ minutes. [facility] Past Medical History Medical History Alcohol use Tobacco use Asthma Social History Social History Household Members: Children Housing: House Do you presently have visiting nurse or other home services: No Alcohol intake: current Alcohol intake frequency: a few times a week Alcohol type: hard liquor Patient Tobacco Use Status: Current someday Tobacco user Tobacco use type: Cigarette Cigarettes Per Day: 6 Second Hand Smoke Exposure: No Substance Use Type: Marijuana service: No
--- NOTE | 2025-02-04 16:21 | MHC.CM.PN ---
PT REPORTS SHE LIVES WITH HER TWO SONS SHE IS INDEPENDENT, HAS NO DME AND NO SERVICES PCP: RENETTA HCAHAL PT WILL COMPLETE A HCP TOMORROW NAMING HER SON AND SISTER, SHE WILL DECIDE IN WHAT ORDER BEFORE THAT TIME. DCP: HOME VIA PRIVATE TRANSPORT
[2025-02-04] MEDS: 0.9 % Sodium Chloride Flush 3 ML SYRINGE IVFLUSH (16:52)
[2025-02-05] VITALS (9 sets, daily range): BP systolic 110–136; BP diastolic 63–76; PULSE 88–103; RESP 16–19; TEMP 36.1–36.6; O2SAT 90–97
[2025-02-05] MEDS: Albuterol Sulfate (0.083%) 2.5 MG/3 ML VIAL.NEB INHALE (03:16)
[2025-02-05 05:55] LABS: MANUAL DIFF FLAG NO
[2025-02-05] MEDS: Lactated Ringers 1,000 ML 80 ML IVCONT (06:08)
[2025-02-05] MEDS: oxyCODONE HCl Immed Release 5 MG TABLET PO ×2 (06:12→19:18)
[2025-02-05 06:14] LABS: Anion Gap 14 (12-20); Blood Urea Nitrogen < 3 mg/dL (9-16); Calcium 7.7 mg/dL (8.4-10.2); Carbon Dioxide 26 mmol/L (22-29); Chloride 105 mmol/L (96-108); Creatinine Clr Calc Pharmacy 139.2; Estimated Glomerular Filt Rate > 60; Magnesium 1.8 mg/dL (1.6-2.6); Potassium 3.7 mmol/L (3.3-5.1); Sodium 141 mmol/L (135-145)
[2025-02-05 06:18] LABS: Hematocrit 32.9 % (37.0-47.0); Hemoglobin 11.2 g/dl (12.0-16.0); Imm Gran Abs Auto 0.17 X10*3/uL (0.00-0.03); Imm Gran Pct Auto 0.8 % (0.0-0.4); Lymphocytes Absolute Auto 2.1 X10*3/uL (1.2-4.9); Mean Corpuscular HGB Conc 34.0 g/dl (31.0-35.0); Mean Corpuscular Hemoglobin 39.7 pg (27.0-33.0); NRBC Abs Auto 0.000 X10*3/uL (0.0-0.012); NRBC Pct Auto 0.0 /100WBC (0.0-0.2); Platelet Count 414 X10*3/uL (160-400); Red Blood Count 2.82 X10*6/uL (4.20-5.50); White Blood Count 21.3 X10*3/uL (4.8-10.8)
[2025-02-05 06:24] LABS: Mean Corpuscular Volume 116.7 fL (80.0-98.0)
[2025-02-05 07:53] LABS: Reflex Lactate? Lactic Acid Added
[2025-02-05] MEDS: 0.9 % Sodium Chloride Flush 3 ML SYRINGE IVFLUSH ×3 (08:10→20:29)
[2025-02-05 08:33] LABS: ~Lactic Acid-LAB USE ONLY 3.3 mmol/L (0.5-2.0)
[2025-02-05] MEDS: Albuterol/Iprat 2.5/0.5MG 3 ML AMPUL.NEB INHALE ×4 (08:34→20:00)
[2025-02-05] MEDS: Nicotine 14 MG PATCH.TD24 TRANSDERMA (09:16)
--- NOTE | 2025-02-05 09:45 | P.PNIM_ITS ---
Subjective Subjective Date of Service: 02/05/25 Interval History: worsening sob and wqheezing today Physical Exam 2 Exam: Exam: General: AO X 3, in some acute distress Resp: wheezing bilateral, some accessory muscles used CVS: S1,S2,RRR GI: soft, non tender, non distended Neuro: motor grossly intact, alert Psych: appropriate affect, appropriate insight Vital Signs: Vital Signs: Last Vital Signs Temp 97.8 F 02/05/25 08:00 Pulse 90 02/05/25 08:37 Resp 18 02/05/25 08:37 BP 112/63 02/05/25 08:00 Pulse Ox 93 02/05/25 08:00 O2 Del Method Nasal Cannula 02/05/25 08:00 O2 Flow Rate 1 02/05/25 08:00 BMI result Body Mass Index 27.5 Objective Data Active Medications Acetaminophen (Acetaminophen 325 Mg Tablet) 975 mg PO Q6H PRN PRN Reason: Pain, Mild 1-3,fever,headache Last Admin: 02/04/25 20:26 Dose: 975 mg Documented By: YASMINE Albuterol Sulfate (Albuterol Sulfate (0.083%) 2.5 Mg/3 Ml Vial.Neb) 2.5 mg INHALE Q4H PRN PRN Reason: Shortness of Breath/Wheezing Last Admin: 02/05/25 03:16 Dose: 2.5 mg Documented By: ALBERT Albuterol/Ipratropium (Albuterol/Iprat 2.5/0.5mg 3 Ml Ampul.Neb) 3 ml INHALE RQ4H WHILE AWAKE [facility] Last Admin: 02/05/25 08:34 Dose: 3 ml Documented By: GIULIA Atorvastatin Calcium (Atorvastatin Calcium 10 Mg Tablet) 10 mg PO DAILY [facility] Last Admin: 02/05/25 09:16 Dose: 10 mg Documented By: MARY Calcium Carbonate (Calcium Carbonate 750 Mg Tab.Chew) 750 mg PO Q4H PRN PRN Reason: Heartburn Enoxaparin Sodium (Enoxaparin Sodium 40 Mg/0.4 Ml Syringe) 40 mg SUBCUT Q24H [facility] Last Admin: 02/05/25 09:26 Dose: 40 mg Documented By: MARY Folic Acid (Folic Acid 1 Mg Tablet) 1 mg PO DAILY [facility] Last Admin: 02/05/25 09:15 Dose: 1 mg Documented By: MARY Doxycycline Hyclate 100 mg/ (Sodium Chloride) 250 mls @ 166.67 mls/hr IV BID [facility] Last Admin: 02/05/25 09:19 Dose: 166.67 mls/hr Documented By: MARY Magnesium Hydroxide (Milk Of Magnesia 30 Ml Oral.Susp) 30 ml PO DAILY PRN PRN Reason: Constipation Melatonin (Melatonin 3 Mg Tablet) 6 mg PO BEDTIME PRN PRN Reason: Insomnia Last Admin: 02/04/25 20:26 Dose: 6 mg Documented By: YASMINE Methylprednisolone Sodium Succinate (Methylprednisolone Sod Succ 125 Mg/2 Ml Vial) 40 mg IVPUSH Q12H [facility] Last Admin: 02/05/25 09:24 Dose: 40 mg Documented By: MARY Montelukast Sodium (Montelukast Sodium 10 Mg Tablet) 10 mg PO BEDTIME [facility] Last Admin: 02/04/25 20:26 Dose: 10 mg Documented By: YASMINE Multivitamins/Vitamin C (Multivitamin Tablet) 1 tab PO DAILY [facility] Last Admin: 02/05/25 09:16 Dose: 1 tab Documented By: MARY Nicotine (Nicotine 14 Mg Patch.Td24) 14 mg TRANSDERMA DAILY [facility] Last Admin: 02/05/25 09:16 Dose: 14 mg Documented By: MARY Omeprazole (Omeprazole 20 Mg Capsule.Dr) 20 mg PO DAILY@0630 [facility] Last Admin: 02/05/25 06:07 Dose: 20 mg Documented By: TANIA Ondansetron HCl (Ondansetron Hcl 4 Mg/2 Ml Vial) 4 mg IVPUSH Q8H PRN PRN Reason: Nausea and Vomiting Last Admin: 02/04/25 18:04 Dose: 4 mg Documented By: KAMILLE Oxycodone HCl (Oxycodone Hcl Immed Release 5 Mg Tablet) 5 mg PO Q6H PRN PRN Reason: Pain, Severe (Pain Scale 7-10) Last Admin: 02/05/25 06:12 Dose: 5 mg Documented By: TANIA Pharmacy Consult (Consult Rx Etoh Phenob Im/Po) 1 each MISCELLANE ONCE PRN; Protocol PRN Reason: Consult order Phenobarbital (Phenobarbital 15 Mg Tablet) 45 mg PO BID [facility]; Protocol Stop: 02/06/25 21:01 Last Admin: 02/05/25 09:15 Dose: 45 mg Documented By: MARY Phenobarbital (Phenobarbital 15 Mg Tablet) 15 mg PO BID [facility]; Protocol Stop: 02/08/25 21:01 Phenobarbital (Phenobarbital 15 Mg Tablet) 15 mg PO DAILY [facility]; Protocol Stop: 02/10/25 09:01 Sodium Chloride (0.9 % Sodium Chloride Flush 3 Ml Syringe) 3 ml IVFLUSH QSHIFT [facility] Last Admin: 02/05/25 08:10 Dose: 3 ml Documented By: MARY Thiamine HCl (Thiamine Hcl 100 Mg Tablet) 100 mg PO DAILY [facility] Last Admin: 02/05/25 09:15 Dose: 100 mg Documented By: MARY Tramadol HCl (Tramadol Hcl 50 Mg Tablet) 50 mg PO Q6H PRN PRN Reason: Pain, Moderate(Pain Scale 4-6) Last Admin: 02/05/25 09:16 Dose: 50 mg Documented By: MARY Vitamin D (Cholecalciferol (Vitamin D3) 25 Mcg Tablet) 25 mcg PO DAILY [facility] Last Admin: 02/05/25 09:15 Dose: 25 mcg Documented By: MARY Labs 02/05/25 05:46 02/05/25 05:46 Labs: Laboratory Results - last 24 hr 02/05/25 02/05/25 05:46 08:02 MCV 116.7 H MCH 39.7 H MCHC 34.0 RDW 15.8 Plt Count 414 H MPV 9.5 Immature Gran % (Auto) 0.8 H Neut % (Auto) 85.4 H Lymph % (Auto) 9.6 L [place] % (Auto) 4.1 Eos % (Auto) 0.0 Baso % (Auto) 0.1 Lymph # (Auto) 2.1 [place] # (Auto) 0.9 Eos # (Auto) 0.0 Baso # (Auto) 0.0 Abs Immat Gran (auto) 0.17 H Absolute Neuts (auto) 18.2 H Absolute Nucleated RBC 0.000 Nucleated RBC % (auto) 0.0 Anion Gap 14 Estim Creat Clear Calc 139.2 Estimated GFR > 60 Random Glucose 192 H Lactic Acid 4.0 H* Lactic Acid F/U @ 2Hr 3.3 H* Calcium 7.7 L Magnesium 1.8 Microbiology Microbiology Results: Microbiology 02/04/25 01:35 Blood Culture - Preliminary Blood - Venous No growth after 24 hours. 02/04/25 01:35 Blood Culture - Preliminary Blood - Venous No growth after 24 hours. Assessment and Plan (1) Alcohol use: Status: Acute Plan 49F PMH ETOH dependence, heterozygous for hemochromatosis, fatty liver, moderate persistent asthma/COPD, presented with sob Acute hypoxic respiratory failure due to moderate persistent asthma/COPD with acute decompensation due to rhino virus Continue steroids, DuoNebs, doxy, worsening symtpoms today Acute lactic acidosis Not due to sepsis, likely due to alcohol, liver disease and albuterol Alcohol dependence with withdrawal Phenobarb, CIWA Noted to be heterozygous for hemochromatosis Iron sat normal, most likely alcohol is primary contributor to fatty liver Acute hypomagnesemia and hypokalemia Replace and monitor DVT prophylaxis with Lovenox Full Code reason for continued hospitalization: Active withdrawal, hypoxia, wheezing Quality Stroke Does the patient have a stroke diagnosis?: No VTE Prior VTE?: No VTE Risk Level:: Medical - moderate - high VTE Device Contraindication: Treatment Not Indicated VTE Drug Contraindication: N/A - Med Ordered
[2025-02-05 10:07] LABS: Reflex Lactate? 2 Y
[2025-02-05 10:10] LABS: Cancel Lactic Acid Canceled
--- NOTE | 2025-02-05 10:37 | MHC.RECOVRN ---
TW met with pt in to offer support regarding AUD. On approach pt was sitting in bed, watching television. No observable signs or symptoms of withdrawal noted. She reports continued cough, wheezing, nausea & headache. She states zofran and tramadol have been helpful to manage symptoms. She denies symptoms are related to alcohol withdrawal. Education provided to pt on the different symptoms of alcohol withdrawal such as nausea, vomiting, anxiety, and headache to which she responded maybe experiencing at home. Pt stated she has a desire to stop drinking alcohol. it doesn't even do anything. I don't get drunk, and its just a waste of money . Pt became tearful when she mentioned the of her 5 years ago. She reports his was a direct result of his alcohol consumption. She reports having two children ages 17 and 27 who are struggling with mental health issues and feels it is hard for her to cope with not only taking care of herself but her children as well. She states drinking alcohol helps take the edge off sometimes . I don't even drink a lot. I have a few shots through out the day to make it through Pt reported her brother came to visit today He is active in AA, putting on meetings and stuff and she accepted his invitation to attend some meetings with him upon discharge. Pt also mentioned seeing commercials for [facility] and voiced wanting to check them out sometime Pt began coughing and reported feeling tired and mentioned wanting to rest a bit . She was agreeable to TW returning later in the afternoon to provide additional resources and further support regarding AUD. Tw to return later today and is available for further questions or concerns as needed.
--- NOTE | 2025-02-05 11:22 | MHC.CM.PN ---
PER MD ROUNDS/EMR, PT NOT MEDICALLY CLEARED DUE TO ACTIVE WITHDRAWAL AND HYPOXIA DCP: HOME VIA PRIVATE TRANSPORT ? RESOURCES FROM MANAGER BUSINESS PROCESS
--- NOTE | 2025-02-05 16:37 | P.PNADD_ITS ---
Subjective Subjective Date of Service: 02/05/25 Reason For Visit: asthma/COPD Interim History: Patient seen in follow up for AUD and withdrawal. Patient awake, alert, pleasant and engaged in interview. Withdrawal sx well managed, CIWA scores have been 0 today. Patient expressed interest in starting JERE. Reviewed medication, dosing, goals of treatment, etc. Review of Systems Constitutional: Reports as per HPI and Reports no additional constitutional complaints Mental Status Exam Mental Status Exam Patient Orientation: Person, Place, Time and Situation Level of Consciousness: Awake, Appropriate and Alert Affect Description: Calm Speech Pattern: Clear Hallucinations: None Delusions: Not Present Thought Process: Intact Thought Content: positive for Intact Judgement: Good Diagnostics Vital Signs (24Hr): Vital Signs - 24 hr 02/04/25 16:45 02/04/25 17:03 02/04/25 20:05 Temperature 97.1 F 97.1 F Pulse Rate 113 H 113 H 101 H Respiratory Rate 20 17 18 Blood Pressure 121/66 121/66 Pulse Oximetry 96 96 Oxygen Delivery Method Room Air Oxygen Flow Rate 02/05/25 03:14 02/05/25 03:16 02/05/25 08:00 Temperature 96.9 F 97.8 F Pulse Rate 100 103 H 91 Respiratory Rate 18 18 16 Blood Pressure 128/69 112/63 Pulse Oximetry 93 93 Oxygen Delivery Method Nasal Cannula Nasal Cannula Oxygen Flow Rate 1 1 02/05/25 08:37 02/05/25 11:35 02/05/25 15:25 Temperature Pulse Rate 90 90 88 Respiratory Rate 18 18 16 Blood Pressure Pulse Oximetry Oxygen Delivery Method Oxygen Flow Rate 02/05/25 15:34 Temperature 97.6 F Pulse Rate 96 Respiratory Rate 18 Blood Pressure 110/63 Pulse Oximetry 90 L Oxygen Delivery Method Room Air Oxygen Flow Rate BMI result Body Mass Index 27.5 Labs 02/05/25 05:46 02/05/25 05:46 Labs: Laboratory Results - last 48 hr 02/03/25 02/03/25 02/04/25 17:38 20:18 00:13 WBC 11.3 H RBC 3.19 L Hgb 12.7 Hct 36.0 L MCV 112.9 H MCH 39.8 H MCHC 35.3 H RDW 15.5 Plt Count 423 H MPV 8.8 L Immature Gran % (Auto) 0.8 H Neut % (Auto) 51.0 Lymph % (Auto) 41.2 H [place] % (Auto) 5.5 Eos % (Auto) 1.0 Baso % (Auto) 0.5 Lymph # (Auto) 4.7 [place] # (Auto) 0.6 Eos # (Auto) 0.1 Baso # (Auto) 0.1 Abs Immat Gran (auto) 0.09 H Absolute Neuts (auto) 5.8 Absolute Nucleated RBC 0.000 Nucleated RBC % (auto) 0.0 Smear Tech's Comments Smear Path Review SEE NOTE PT INR D-Dimer High Sensitivty 176 VBG pH VBG pCO2 VBG pO2 VBG HCO3 VBG O2 Saturation VBG Base Excess Sodium 146 H Potassium 3.6 Chloride 103 Carbon Dioxide 33 H Anion Gap 14 BUN 3 L Creatinine 0.50 Estim Creat Clear Calc 110.1 Estimated GFR > 60 Random Glucose 111 Lactic Acid Lactic Acid F/U @ 2Hr Lactic Acid F/U @ 4Hr Calcium 8.4 Magnesium 1.8 Iron TIBC % Saturation Unsat Iron Binding Ferritin Total Bilirubin 0.8 AST 148 H ALT 53 H Alkaline Phosphatase 174 H Troponin I High Sens < 2.7 B-Natriuretic Peptide 57 Total Protein 5.8 L Albumin 3.1 L Procalcitonin 0.08 Ethyl Alcohol Influenza Type A (PCR) NEGATIVE Influenza Type B (PCR) NEGATIVE RSV RNA Qual (PCR) NEGATIVE SARS-CoV-2 RNA (RT-PCR) NEGATIVE 02/04/25 02/04/25 02/04/25 01:35 03:55 06:32 WBC 8.5 RBC 2.92 L Hgb 11.7 L Hct 33.3 L MCV 114.0 H MCH 40.1 H MCHC 35.1 H RDW 15.8 Plt Count 405 H MPV 9.3 L Immature Gran % (Auto) 0.2 Neut % (Auto) 91.0 H Lymph % (Auto) 7.4 L [place] % (Auto) 1.3 L Eos % (Auto) 0.0 Baso % (Auto) 0.1 Lymph # (Auto) 0.6 L [place] # (Auto) 0.1 Eos # (Auto) 0.0 Baso # (Auto) 0.0 Abs Immat Gran (auto) 0.02 Absolute Neuts (auto) 7.7 Absolute Nucleated RBC 0.000 Nucleated RBC % (auto) 0.0 Smear Tech's Comments VERIFIED Smear Path Review PT INR D-Dimer High Sensitivty VBG pH VBG pCO2 VBG pO2 VBG HCO3 VBG O2 Saturation VBG Base Excess Sodium 142 Potassium 2.8 L* D Chloride 101 Carbon Dioxide 22 Anion Gap 22 H BUN 4 L Creatinine 0.57 Estim Creat Clear Calc 96.6 Estimated GFR > 60 Random Glucose 193 H Lactic Acid 8.7 H* Lactic Acid F/U @ 2Hr 8.2 H* Lactic Acid F/U @ 4Hr 7.3 H* Calcium 7.5 L D Magnesium 1.9 Iron 56 TIBC 166 L % Saturation 34 Unsat Iron Binding 110 Ferritin 317 H Total Bilirubin AST ALT Alkaline Phosphatase Troponin I High Sens B-Natriuretic Peptide Total Protein Albumin Procalcitonin Ethyl Alcohol Influenza Type A (PCR) Influenza Type B (PCR) RSV RNA Qual (PCR) SARS-CoV-2 RNA (RT-PCR) 02/04/25 02/04/25 02/05/25 08:28 08:35 05:46 WBC 21.3 H RBC 2.82 L Hgb 11.2 L Hct 32.9 L MCV 116.7 H MCH 39.7 H MCHC 34.0 RDW 15.8 Plt Count 414 H MPV 9.5 Immature Gran % (Auto) 0.8 H Neut % (Auto) 85.4 H Lymph % (Auto) 9.6 L [place] % (Auto) 4.1 Eos % (Auto) 0.0 Baso % (Auto) 0.1 Lymph # (Auto) 2.1 [place] # (Auto) 0.9 Eos # (Auto) 0.0 Baso # (Auto) 0.0 Abs Immat Gran (auto) 0.17 H Absolute Neuts (auto) 18.2 H Absolute Nucleated RBC 0.000 Nucleated RBC % (auto) 0.0 Smear Tech's Comments Smear Path Review PT 10.7 L INR 0.9 D-Dimer High Sensitivty VBG pH 7.49 H VBG pCO2 27 VBG pO2 157 VBG HCO3 21 L VBG O2 Saturation 100.0 VBG Base Excess -0.6 Sodium 141 Potassium 3.7 D Chloride 105 Carbon Dioxide 26 Anion Gap 14 BUN < 3 L Creatinine 0.45 L Estim Creat Clear Calc 139.2 Estimated GFR > 60 Random Glucose 192 H Lactic Acid 4.0 H* Lactic Acid F/U @ 2Hr Lactic Acid F/U @ 4Hr Calcium 7.7 L Magnesium 1.8 Iron TIBC % Saturation Unsat Iron Binding Ferritin Total Bilirubin AST ALT Alkaline Phosphatase Troponin I High Sens B-Natriuretic Peptide Total Protein Albumin Procalcitonin Ethyl Alcohol < 10 Influenza Type A (PCR) Influenza Type B (PCR) RSV RNA Qual (PCR) SARS-CoV-2 RNA (RT-PCR) 02/05/25 08:02 WBC RBC Hgb Hct MCV MCH MCHC RDW Plt Count MPV Immature Gran % (Auto) Neut % (Auto) Lymph % (Auto) [place] % (Auto) Eos % (Auto) Baso % (Auto) Lymph # (Auto) [place] # (Auto) Eos # (Auto) Baso # (Auto) Abs Immat Gran (auto) Absolute Neuts (auto) Absolute Nucleated RBC Nucleated RBC % (auto) Smear Tech's Comments Smear Path Review PT INR D-Dimer High Sensitivty VBG pH VBG pCO2 VBG pO2 VBG HCO3 VBG O2 Saturation VBG Base Excess Sodium Potassium Chloride Carbon Dioxide Anion Gap BUN Creatinine Estim Creat Clear Calc Estimated GFR Random Glucose Lactic Acid Lactic Acid F/U @ 2Hr 3.3 H* Lactic Acid F/U @ 4Hr Calcium Magnesium Iron TIBC % Saturation Unsat Iron Binding Ferritin Total Bilirubin AST ALT Alkaline Phosphatase Troponin I High Sens B-Natriuretic Peptide Total Protein Albumin Procalcitonin Ethyl Alcohol Influenza Type A (PCR) Influenza Type B (PCR) RSV RNA Qual (PCR) SARS-CoV-2 RNA (RT-PCR) Medications Medications Current Medications Acetaminophen (Acetaminophen 325 Mg Tablet) 975 mg PO Q6H PRN PRN Reason: Pain, Mild 1-3,fever,headache Last Admin: 02/04/25 20:26 Dose: 975 mg Albuterol Sulfate (Albuterol Sulfate (0.083%) 2.5 Mg/3 Ml Vial.Neb) 2.5 mg INHALE Q4H PRN PRN Reason: Shortness of Breath/Wheezing Last Admin: 02/05/25 03:16 Dose: 2.5 mg Albuterol/Ipratropium (Albuterol/Iprat 2.5/0.5mg 3 Ml Ampul.Neb) 3 ml INHALE RQ4H WHILE AWAKE [facility] Last Admin: 02/05/25 15:23 Dose: 3 ml Atorvastatin Calcium (Atorvastatin Calcium 10 Mg Tablet) 10 mg PO DAILY [facility] Last Admin: 02/05/25 09:16 Dose: 10 mg Benzonatate (Benzonatate 100 Mg Capsule) 100 mg PO TID PRN PRN Reason: Cough Last Admin: 02/05/25 11:00 Dose: 100 mg Calcium Carbonate (Calcium Carbonate 750 Mg Tab.Chew) 750 mg PO Q4H PRN PRN Reason: Heartburn Enoxaparin Sodium (Enoxaparin Sodium 40 Mg/0.4 Ml Syringe) 40 mg SUBCUT Q24H [facility] Last Admin: 02/05/25 09:26 Dose: 40 mg Folic Acid (Folic Acid 1 Mg Tablet) 1 mg PO DAILY [facility] Last Admin: 02/05/25 09:15 Dose: 1 mg Doxycycline Hyclate 100 mg/ (Sodium Chloride) 250 mls @ 166.67 mls/hr IV BID [facility] Last Infusion: 02/05/25 11:04 Dose: Infused Magnesium Hydroxide (Milk Of Magnesia 30 Ml Oral.Susp) 30 ml PO DAILY PRN PRN Reason: Constipation Melatonin (Melatonin 3 Mg Tablet) 6 mg PO BEDTIME PRN PRN Reason: Insomnia Last Admin: 02/04/25 20:26 Dose: 6 mg Methylprednisolone Sodium Succinate (Methylprednisolone Sod Succ 125 Mg/2 Ml Vial) 40 mg IVPUSH Q12H [facility] Last Admin: 02/05/25 09:24 Dose: 40 mg Montelukast Sodium (Montelukast Sodium 10 Mg Tablet) 10 mg PO BEDTIME [facility] Last Admin: 02/04/25 20:26 Dose: 10 mg Multivitamins/Vitamin C (Multivitamin Tablet) 1 tab PO DAILY [facility] Last Admin: 02/05/25 09:16 Dose: 1 tab Nicotine (Nicotine 14 Mg Patch.Td24) 14 mg TRANSDERMA DAILY [facility] Last Admin: 02/05/25 09:16 Dose: 14 mg Omeprazole (Omeprazole 20 Mg Capsule.Dr) 20 mg PO DAILY@0630 [facility] Last Admin: 02/05/25 06:07 Dose: 20 mg Ondansetron HCl (Ondansetron Hcl 4 Mg/2 Ml Vial) 4 mg IVPUSH Q8H PRN PRN Reason: Nausea and Vomiting Last Admin: 02/04/25 18:04 Dose: 4 mg Oxycodone HCl (Oxycodone Hcl Immed Release 5 Mg Tablet) 5 mg PO Q6H PRN PRN Reason: Pain, Severe (Pain Scale 7-10) Last Admin: 02/05/25 06:12 Dose: 5 mg Pharmacy Consult (Consult Rx Etoh Phenob Im/Po) 1 each MISCELLANE ONCE PRN; Protocol PRN Reason: Consult order Phenobarbital (Phenobarbital 15 Mg Tablet) 45 mg PO BID [facility]; Protocol Stop: 02/06/25 21:01 Last Admin: 02/05/25 09:15 Dose: 45 mg Phenobarbital (Phenobarbital 15 Mg Tablet) 15 mg PO BID [facility]; Protocol Stop: 02/08/25 21:01 Phenobarbital (Phenobarbital 15 Mg Tablet) 15 mg PO DAILY [facility]; Protocol Stop: 02/10/25 09:01 Sodium Chloride (0.9 % Sodium Chloride Flush 3 Ml Syringe) 3 [facility] Last Admin: 02/05/25 15:49 Dose: 3 ml Thiamine HCl (Thiamine Hcl 100 Mg Tablet) 100 mg PO DAILY [facility] Last Admin: 02/05/25 09:15 Dose: 100 mg Tramadol HCl (Tramadol Hcl 50 Mg Tablet) 50 mg PO Q6H PRN PRN Reason: Pain, Moderate(Pain Scale 4-6) Last Admin: 02/05/25 09:16 Dose: 50 mg Vitamin D (Cholecalciferol (Vitamin D3) 25 Mcg Tablet) 25 mcg PO DAILY [facility] Last Admin: 02/05/25 09:15 Dose: 25 mcg Allergies Allergies Allergy/AdvReac Type Severity Reaction Status Date / Time No Known Allergies Allergy Verified 02/03/25 17:06 Assessment & Plan Assessment & Plan (1) Alcohol use disorder, moderate, dependence: Status: Acute Code(s): F10.20 - Alcohol dependence, uncomplicated Assessment and Plan: * plan to start naltrexone at discharge as patient is currently receiving oxycodone PRN. Once d/c can start * Naltrexone 1/2 tab (25mg)daily X3 days, then increase to one tab (50mg) daily (Pt will need rx sent to pharmacy at discharge) * integrated campaign manager to discuss and arrange follow up and additional recovery supports. Total time managing care of this patient today _30__ minutes.
[2025-02-06] VITALS (8 sets, daily range): BP systolic 132–142; BP diastolic 67–75; PULSE 84–100; RESP 16–19; TEMP 36.2–36.6; O2SAT 91–98
[2025-02-06 06:46] LABS: MANUAL DIFF FLAG NO
[2025-02-06 06:53] LABS: Hematocrit 35.0 % (37.0-47.0); Hemoglobin 11.6 g/dl (12.0-16.0); Imm Gran Abs Auto 0.30 X10*3/uL (0.00-0.03); Imm Gran Pct Auto 1.6 % (0.0-0.4); Lymphocytes Absolute Auto 2.9 X10*3/uL (1.2-4.9); Mean Corpuscular HGB Conc 33.1 g/dl (31.0-35.0); Mean Corpuscular Hemoglobin 39.7 pg (27.0-33.0); NRBC Abs Auto 0.040 X10*3/uL (0.0-0.012); NRBC Pct Auto 0.2 /100WBC (0.0-0.2); Platelet Count 425 X10*3/uL (160-400); Red Blood Count 2.92 X10*6/uL (4.20-5.50); White Blood Count 18.4 X10*3/uL (4.8-10.8)
[2025-02-06 06:55] LABS: Mean Corpuscular Volume 119.9 fL (80.0-98.0)
[2025-02-06 07:12] LABS: Anion Gap 13 (12-20); Blood Urea Nitrogen 6 mg/dL (9-16); Calcium 8.2 mg/dL (8.4-10.2); Carbon Dioxide 30 mmol/L (22-29); Chloride 103 mmol/L (96-108); Creatinine Clr Calc Pharmacy 125.3; Estimated Glomerular Filt Rate > 60; Potassium 4.6 mmol/L (3.3-5.1); Sodium 141 mmol/L (135-145)
[2025-02-06] MEDS: oxyCODONE HCl Immed Release 5 MG TABLET PO ×2 (07:25→20:47)
[2025-02-06] MEDS: Albuterol/Iprat 2.5/0.5MG 3 ML AMPUL.NEB INHALE ×4 (08:06→19:03)
--- NOTE | 2025-02-06 09:29 | P.PNIM_ITS ---
Subjective Subjective Date of Service: 02/06/25 Interval History: still sob and wheezy Physical Exam 2 Exam: Exam: General: AO X 3, in some acute distress Resp: wheezing bilateral, some accessory muscles used CVS: S1,S2,RRR GI: soft, non tender, non distended Neuro: motor grossly intact, alert Psych: appropriate affect, appropriate insight Vital Signs: Vital Signs: Last Vital Signs Temp 97.8 F 02/06/25 07:51 Pulse 92 02/06/25 08:06 Resp 18 02/06/25 08:06 BP 134/75 02/06/25 07:51 Pulse Ox 95 02/06/25 07:51 O2 Del Method Room Air 02/06/25 07:51 O2 Flow Rate 1 02/05/25 08:00 BMI result Body Mass Index 27.5 Objective Data Active Medications Acetaminophen (Acetaminophen 325 Mg Tablet) 975 mg PO Q6H PRN PRN Reason: Pain, Mild 1-3,fever,headache Last Admin: 02/04/25 20:26 Dose: 975 mg Documented By: YASMINE Albuterol Sulfate (Albuterol Sulfate (0.083%) 2.5 Mg/3 Ml Vial.Neb) 2.5 mg INHALE Q4H PRN PRN Reason: Shortness of Breath/Wheezing Last Admin: 02/05/25 03:16 Dose: 2.5 mg Documented By: ALBERT Albuterol/Ipratropium (Albuterol/Iprat 2.5/0.5mg 3 Ml Ampul.Neb) 3 ml INHALE RQ4H WHILE AWAKE [facility] Last Admin: 02/06/25 08:06 Dose: 3 ml Documented By: GEOVANY Atorvastatin Calcium (Atorvastatin Calcium 10 Mg Tablet) 10 mg PO DAILY [facility] Last Admin: 02/05/25 09:16 Dose: 10 mg Documented By: SAGARAMER Benzonatate (Benzonatate 100 Mg Capsule) 100 mg PO TID PRN PRN Reason: Cough Last Admin: 02/05/25 19:17 Dose: 100 mg Documented By: TANIA Calcium Carbonate (Calcium Carbonate 750 Mg Tab.Chew) 750 mg PO Q4H PRN PRN Reason: Heartburn Enoxaparin Sodium (Enoxaparin Sodium 40 Mg/0.4 Ml Syringe) 40 mg SUBCUT Q24H [facility] Last Admin: 02/05/25 09:26 Dose: 40 mg Documented By: MARY Folic Acid (Folic Acid 1 Mg Tablet) 1 mg PO DAILY [facility] Last Admin: 02/05/25 09:15 Dose: 1 mg Documented By: MARY Doxycycline Hyclate 100 mg/ (Sodium Chloride) 250 mls @ 166.67 mls/hr IV BID [facility] Last Infusion: 02/05/25 22:33 Dose: Infused Documented By: TANIA Magnesium Hydroxide (Milk Of Magnesia 30 Ml Oral.Susp) 30 ml PO DAILY PRN PRN Reason: Constipation Melatonin (Melatonin 3 Mg Tablet) 6 mg PO BEDTIME PRN PRN Reason: Insomnia Last Admin: 02/05/25 20:55 Dose: 6 mg Documented By: TANIA Methylprednisolone Sodium Succinate (Methylprednisolone Sod Succ 125 Mg/2 Ml Vial) 40 mg IVPUSH Q12H [facility] Last Admin: 02/05/25 20:30 Dose: 40 mg Documented By: TANIA Montelukast Sodium (Montelukast Sodium 10 Mg Tablet) 10 mg PO BEDTIME [facility] Last Admin: 02/05/25 20:29 Dose: 10 mg Documented By: TANIA Multivitamins/Vitamin C (Multivitamin Tablet) 1 tab PO DAILY [facility] Last Admin: 02/05/25 09:16 Dose: 1 tab Documented By: MARY Nicotine (Nicotine 14 Mg Patch.Td24) 14 mg TRANSDERMA DAILY [facility] Last Admin: 02/05/25 09:16 Dose: 14 mg Documented By: MARY Omeprazole (Omeprazole 20 Mg Capsule.) 20 mg PO DAILY@0630 [facility] Last Admin: 02/06/25 05:45 Dose: 20 mg Documented By: TANIA Ondansetron HCl (Ondansetron Hcl 4 Mg/2 Ml Vial) 4 mg IVPUSH Q8H PRN PRN Reason: Nausea and Vomiting Last Admin: 02/04/25 18:04 Dose: 4 mg Documented By: KAMILLE Oxycodone HCl (Oxycodone Hcl Immed Release 5 Mg Tablet) 5 mg PO Q6H PRN PRN Reason: Pain, Severe (Pain Scale 7-10) Last Admin: 02/06/25 07:25 Dose: 5 mg Documented By: EBEN Pharmacy Consult (Consult Rx Etoh Phenob Im/Po) 1 each MISCELLANE ONCE PRN; Protocol PRN Reason: Consult order Phenobarbital (Phenobarbital 15 Mg Tablet) 45 mg PO BID [facility]; Protocol Stop: 02/06/25 21:01 Last Admin: 02/05/25 20:29 Dose: 45 mg Documented By: TANIA Phenobarbital (Phenobarbital 15 Mg Tablet) 15 mg PO BID [facility]; Protocol Stop: 02/08/25 21:01 Phenobarbital (Phenobarbital 15 Mg Tablet) 15 mg PO DAILY [facility]; Protocol Stop: 02/10/25 09:01 Sodium Chloride (0.9 % Sodium Chloride Flush 3 Ml Syringe) 3 ml IVFLUSH QSHIFT [facility] Last Admin: 02/05/25 20:29 Dose: 3 ml Documented By: TANIA Thiamine HCl (Thiamine Hcl 100 Mg Tablet) 100 mg PO DAILY [facility] Last Admin: 02/05/25 09:15 Dose: 100 mg Documented By: MARY Tramadol HCl (Tramadol Hcl 50 Mg Tablet) 50 mg PO Q6H PRN PRN Reason: Pain, Moderate(Pain Scale 4-6) Last Admin: 02/05/25 09:16 Dose: 50 mg Documented By: MARY Vitamin D (Cholecalciferol (Vitamin D3) 25 Mcg Tablet) 25 mcg PO DAILY [facility] Last Admin: 02/05/25 09:15 Dose: 25 mcg Documented By: MARY Labs 02/06/25 06:39 02/06/25 06:39 Labs: Laboratory Results - last 24 hr 02/06/25 06:39 MCV 119.9 H MCH 39.7 H MCHC 33.1 RDW 15.5 Plt Count 425 H MPV 9.3 L Immature Gran % (Auto) 1.6 H Neut % (Auto) 78.9 H Lymph % (Auto) 15.7 L [place] % (Auto) 3.4 Eos % (Auto) 0.1 Baso % (Auto) 0.3 Lymph # (Auto) 2.9 [place] # (Auto) 0.6 Eos # (Auto) 0.0 Baso # (Auto) 0.1 Abs Immat Gran (auto) 0.30 H Absolute Neuts (auto) 14.5 H Absolute Nucleated RBC 0.040 H Nucleated RBC % (auto) 0.2 Anion Gap 13 Estim Creat Clear Calc 125.3 Estimated GFR > 60 Random Glucose 141 H Calcium 8.2 L D Microbiology Microbiology Results: Microbiology 02/04/25 01:35 Blood Culture - Preliminary Blood - Venous No growth after 48 hours. 02/04/25 01:35 Blood Culture - Preliminary Blood - Venous No growth after 48 hours. Assessment and Plan (1) Alcohol use: Status: Acute Plan 49F PMH ETOH dependence, heterozygous for hemochromatosis, fatty liver, moderate persistent asthma/COPD, presented with sob Acute hypoxic respiratory failure due to moderate persistent asthma/COPD with acute decompensation due to rhino virus Continue steroids, DuoNebs, doxy Acute lactic acidosis Not due to sepsis, likely due to alcohol, liver disease and albuterol Alcohol dependence with withdrawal Phenobarb, CIWA Noted to be heterozygous for hemochromatosis Iron sat normal, most likely alcohol is primary contributor to fatty liver Acute hypomagnesemia and hypokalemia Replaced DVT prophylaxis with Lovenox Full Code reason for continued hospitalization: Active withdrawal, hypoxia, wheezing Quality Stroke Does the patient have a stroke diagnosis?: No VTE Prior VTE?: No VTE Risk Level:: Medical - moderate - high VTE Device Contraindication: Treatment Not Indicated VTE Drug Contraindication: N/A - Med Ordered
[2025-02-06] MEDS: Nicotine 14 MG PATCH.TD24 TRANSDERMA (09:33)
[2025-02-06] MEDS: 0.9 % Sodium Chloride Flush 3 ML SYRINGE IVFLUSH ×2 (09:34→20:28)
[2025-02-07] VITALS (8 sets, daily range): BP systolic 138–171; BP diastolic 77–93; PULSE 71–92; RESP 16–18; TEMP 36–36.4; O2SAT 92–98
[2025-02-07] MEDS: Albuterol/Iprat 2.5/0.5MG 3 ML AMPUL.NEB INHALE ×4 (08:05→20:37)
--- NOTE | 2025-02-07 08:24 | P.PNIM_ITS ---
Subjective Subjective Date of Service: 02/07/25 Interval History: still sob Physical Exam 2 Exam: Exam: General: AO X 3, in some acute distress Resp: wheezing bilateral, some accessory muscles used CVS: S1,S2,RRR GI: soft, non tender, non distended Neuro: motor grossly intact, alert Psych: appropriate affect, appropriate insight Vital Signs: Vital Signs: Last Vital Signs Temp 96.8 F 02/07/25 07:53 Pulse 77 02/07/25 08:07 Resp 16 02/07/25 08:07 BP 171/93 H 02/07/25 07:53 Pulse Ox 94 02/07/25 07:53 O2 Del Method Room Air 02/07/25 07:53 O2 Flow Rate 1 02/05/25 08:00 BMI result Body Mass Index 27.5 Objective Data Active Medications Acetaminophen (Acetaminophen 325 Mg Tablet) 975 mg PO Q6H PRN PRN Reason: Pain, Mild 1-3,fever,headache Last Admin: 02/04/25 20:26 Dose: 975 mg Documented By: YASMINE Albuterol Sulfate (Albuterol Sulfate (0.083%) 2.5 Mg/3 Ml Vial.Neb) 2.5 mg INHALE Q4H PRN PRN Reason: Shortness of Breath/Wheezing Last Admin: 02/05/25 03:16 Dose: 2.5 mg Documented By: ALBERT Albuterol/Ipratropium (Albuterol/Iprat 2.5/0.5mg 3 Ml Ampul.Neb) 3 ml INHALE RQ4H WHILE AWAKE [facility] Last Admin: 02/07/25 08:05 Dose: 3 ml Documented By: DAVON Atorvastatin Calcium (Atorvastatin Calcium 10 Mg Tablet) 10 mg PO DAILY [facility] Last Admin: 02/06/25 09:32 Dose: 10 mg Documented By: EBEN Benzonatate (Benzonatate 100 Mg Capsule) 100 mg PO TID PRN PRN Reason: Cough Last Admin: 02/06/25 09:36 Dose: 100 mg Documented By: EBEN Calcium Carbonate (Calcium Carbonate 750 Mg Tab.Chew) 750 mg PO Q4H PRN PRN Reason: Heartburn Enoxaparin Sodium (Enoxaparin Sodium 40 Mg/0.4 Ml Syringe) 40 mg SUBCUT Q24H [facility] Last Admin: 02/06/25 09:32 Dose: 40 mg Documented By: EBEN Folic Acid (Folic Acid 1 Mg Tablet) 1 mg PO DAILY [facility] Last Admin: 02/06/25 09:32 Dose: 1 mg Documented By: EBEN Doxycycline Hyclate 100 mg/ (Sodium Chloride) 250 mls @ 166.67 mls/hr IV BID [facility] Last Infusion: 02/06/25 22:23 Dose: Infused Documented By: TANIA Magnesium Hydroxide (Milk Of Magnesia 30 Ml Oral.Susp) 30 ml PO DAILY PRN PRN Reason: Constipation Melatonin (Melatonin 3 Mg Tablet) 6 mg PO BEDTIME PRN PRN Reason: Insomnia Last Admin: 02/06/25 22:20 Dose: 6 mg Documented By: TANIA Methylprednisolone Sodium Succinate (Methylprednisolone Sod Succ 125 Mg/2 Ml Vial) 40 mg IVPUSH Q12H [facility] Last Admin: 02/06/25 20:28 Dose: 40 mg Documented By: TANIA Montelukast Sodium (Montelukast Sodium 10 Mg Tablet) 10 mg PO BEDTIME [facility] Last Admin: 02/06/25 20:29 Dose: 10 mg Documented By: TANIA Multivitamins/Vitamin C (Multivitamin Tablet) 1 tab PO DAILY [facility] Last Admin: 02/06/25 09:32 Dose: 1 tab Documented By: EBEN Nicotine (Nicotine 14 Mg Patch.Td24) 14 mg TRANSDERMA DAILY [facility] Last Admin: 02/06/25 09:33 Dose: 14 mg Documented By: EBEN Omeprazole (Omeprazole 20 Mg Capsule.Dr) 20 mg PO DAILY@0630 [facility] Last Admin: 02/07/25 06:08 Dose: 20 mg Documented By: TANIA Ondansetron HCl (Ondansetron Hcl 4 Mg/2 Ml Vial) 4 mg IVPUSH Q8H PRN PRN Reason: Nausea and Vomiting Last Admin: 02/04/25 18:04 Dose: 4 mg Documented By: KAMILLE Oxycodone HCl (Oxycodone Hcl Immed Release 5 Mg Tablet) 5 mg PO Q6H PRN PRN Reason: Pain, Severe (Pain Scale 7-10) Last Admin: 02/06/25 20:47 Dose: 5 mg Documented By: TANIA Pharmacy Consult (Consult Rx Etoh Phenob Im/Po) 1 each MISCELLANE ONCE PRN; Protocol PRN Reason: Consult order Phenobarbital (Phenobarbital 15 Mg Tablet) 15 mg PO BID [facility]; Protocol Stop: 02/08/25 21:01 Phenobarbital (Phenobarbital 15 Mg Tablet) 15 mg PO DAILY [facility]; Protocol Stop: 02/10/25 09:01 Sodium Chloride (0.9 % Sodium Chloride Flush 3 Ml Syringe) 3 ml IVFLUSH QSHIFT [facility] Last Admin: 02/06/25 20:28 Dose: 3 ml Documented By: TANIA Thiamine HCl (Thiamine Hcl 100 Mg Tablet) 100 mg PO DAILY [facility] Last Admin: 02/06/25 09:32 Dose: 100 mg Documented By: EBEN Tramadol HCl (Tramadol Hcl 50 Mg Tablet) 50 mg PO Q6H PRN PRN Reason: Pain, Moderate(Pain Scale 4-6) Last Admin: 02/06/25 22:20 Dose: 50 mg Documented By: TANIA Vitamin D (Cholecalciferol (Vitamin D3) 25 Mcg Tablet) 25 mcg PO DAILY [facility] Last Admin: 02/06/25 09:32 Dose: 25 mcg Documented By: EBEN Labs 02/06/25 06:39 02/06/25 06:39 Assessment and Plan (1) Alcohol use: Status: Acute Plan 49F PMH ETOH dependence, heterozygous for hemochromatosis, fatty liver, moderate persistent asthma/COPD, presented with sob Acute hypoxic respiratory failure due to moderate persistent asthma/COPD with acute decompensation due to rhino virus Continue steroids, DuoNebs, doxy, now on room air Acute lactic acidosis Not due to sepsis, likely due to alcohol, liver disease and albuterol Alcohol dependence with withdrawal Phenobarb, CIWA Noted to be heterozygous for hemochromatosis Iron sat normal, most likely alcohol is primary contributor to fatty liver Acute hypomagnesemia and hypokalemia Replaced DVT prophylaxis with Lovenox Full Code reason for continued hospitalization: Active withdrawal, wheezing Quality Stroke Does the patient have a stroke diagnosis?: No VTE Prior VTE?: No VTE Risk Level:: Medical - moderate - high VTE Device Contraindication: Treatment Not Indicated VTE Drug Contraindication: N/A - Med Ordered
[2025-02-07] MEDS: Nicotine 14 MG PATCH.TD24 TRANSDERMA (09:15)
[2025-02-07] MEDS: 0.9 % Sodium Chloride Flush 3 ML SYRINGE IVFLUSH ×2 (09:18→20:21)
[2025-02-07] MEDS: Throat Lozenge, Medicated LOZENGE 1 LOZENGE MUCOUS MEM (12:39)
[2025-02-07] MEDS: Nystatin Oral Susp 500,000 UNIT/5 ML ORAL.SUSP 200000 UNIT PO ×3 (14:36→20:54)
[2025-02-07] MEDS: oxyCODONE HCl Immed Release 5 MG TABLET PO ×2 (16:50→22:50)
[2025-02-08 03:13] VITALS: BP 139/79; PULSE 73; RESP 18; TEMP 36.1; O2SAT 94
[2025-02-08] MEDS: oxyCODONE HCl Immed Release 5 MG TABLET PO (05:59)
[2025-02-08 06:48] LABS: Hematocrit 36.3 % (37.0-47.0); Hemoglobin 12.0 g/dl (12.0-16.0); Mean Corpuscular HGB Conc 33.1 g/dl (31.0-35.0); Mean Corpuscular Hemoglobin 39.6 pg (27.0-33.0); NRBC Abs Auto 0.070 X10*3/uL (0.0-0.012); NRBC Pct Auto 0.4 /100WBC (0.0-0.2); Platelet Count 426 X10*3/uL (160-400); Red Blood Count 3.03 X10*6/uL (4.20-5.50); White Blood Count 16.2 X10*3/uL (4.8-10.8)
[2025-02-08 06:51] LABS: Mean Corpuscular Volume 119.8 fL (80.0-98.0)
[2025-02-08 06:59] LABS: Alanine Aminotransferase 78 U/L (0-31); Albumin Level 3.2 g/dL (3.5-5.0); Alkaline Phosphatase 126 U/L (39-117); Anion Gap 15 (12-20); Aspartate Amino Transferase 99 U/L (5-31); Blood Urea Nitrogen 9 mg/dL (9-16); Calcium 8.5 mg/dL (8.4-10.2); Carbon Dioxide 33 mmol/L (22-29); Chloride 101 mmol/L (96-108); Creatinine Clr Calc Pharmacy 130.5; Estimated Glomerular Filt Rate > 60; Magnesium 1.6 mg/dL (1.6-2.6); Potassium 4.7 mmol/L (3.3-5.1); Sodium 144 mmol/L (135-145); Total Protein 5.7 g/dL (6.5-8.0)
[2025-02-08 07:16] VITALS: BP 140/76; PULSE 71; RESP 16; TEMP 36.4; O2SAT 97
[2025-02-08 08:21] VITALS: PULSE 69; RESP 16; O2SAT 98
[2025-02-08] MEDS: Albuterol/Iprat 2.5/0.5MG 3 ML AMPUL.NEB INHALE (08:21)
[2025-02-08] MEDS: Nystatin Oral Susp 500,000 UNIT/5 ML ORAL.SUSP 200000 UNIT PO (08:47)
--- NOTE | 2025-02-08 08:48 | PM.DS ---
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 The patient reports that she has had her home inhalers changed multiple times but has not had good relief. Sometimes she will cough to the point where she vomits. She denies any fever or chills. She has pleuritic chest pain with her cough. She was recently treated with a Z-Connor and steroids without significant improvement. She denies any hemoptysis. hospital course: Patient was admitted for acute hypoxic respiratory failure due to moderate persistent asthma/COPD with acute decompensation, was treated with steroids, DuoNebs, doxycycline and eventually weaned to room air. Shortness of breath has significantly improved and will be discharged on 5 more days of prednisone and doxycycline. For acute lactic acidosis this was not due to sepsis but likely alcohol, liver disease and albuterol. For alcohol dependence with withdrawal was treated with phenobarbital protocol and withdrawal symptoms resolved. Patient is noted to be heterozygous for hemochromatosis but iron saturation is normal and most likely alcohol is the primary contributor to fatty liver disease. For acute hypomagnesemia and hypokalemia received replacement. Time Attestation Discharge Coordination Time (in mins): 33 Quality: Safe Use of Opioids Does Pt have an Active Cancer Diagnosis on the Problem List?: No Quality: Stroke Does the patient have a stroke diagnosis?: No Physical Exam Exam: Exam: General: AO X 3, no acute distress Resp: CTA bilateral, no accessory muscles used CVS: S1,S2,RRR GI: soft, non tender, non distended Neuro: motor grossly intact, alert Psych: appropriate affect, appropriate insight Vital Signs: Vital Signs: Last Vital Signs Temp 97.5 F 02/08/25 07:16 Pulse 69 02/08/25 08:21 Resp 16 02/08/25 08:21 BP 140/76 H 02/08/25 07:16 Pulse Ox 97 02/08/25 07:16 O2 Del Method Room Air 02/08/25 07:16 O2 Flow Rate 1 02/05/25 08:00 BMI result Body Mass Index 27.5 DS: Data Data Completed and Pending Labs on day of discharge: Laboratory Results - last 24 hr 02/08/25 05:44 WBC 16.2 H RBC 3.03 L Hgb 12.0 Hct 36.3 L MCV 119.8 H MCH 39.6 H MCHC 33.1 RDW 16.1 H Plt Count 426 H MPV 9.2 L Absolute Nucleated RBC 0.070 H Nucleated RBC % (auto) 0.4 H Sodium 144 Potassium 4.7 Chloride 101 Carbon Dioxide 33 H Anion Gap 15 BUN 9 Creatinine 0.48 L Estim Creat Clear Calc 130.5 Estimated GFR > 60 Random Glucose 173 H Calcium 8.5 Magnesium 1.6 Total Bilirubin 0.3 Direct Bilirubin 0.2 AST 99 H ALT 78 H Alkaline Phosphatase 126 H Total Protein 5.7 L Albumin 3.2 L Preliminary micro results at discharge 02/04/25 01:35 Blood Culture - Preliminary Blood - Venous No growth after 48 hours. 02/04/25 01:35 Blood Culture - Preliminary Blood - Venous No growth after 48 hours. Discharge Plan Discharge Anticipated Discharge Date/Time: 02/08/25 08:46 Patient Disposition: Home, Self-Care Discharge Diagnosis: copd Referrals: Rubi: Recovery Coaching [Other] - 1 Week Referral Note: A referral has been placed for recovery coaching. Please call to follow-up on services [facility] [place] [facility] [Provider Group] - 1 Week Referral Note: Please call to schedule intake appt to continue Naltrexone They offer walk in hours Mon-Th 8-430pm & Fri 10-430pm Janett Rivera MD [Primary Care Provider, Internal Medicine] - 1 Week Discharge Medications: New prednisone 20 mg tablet 40 mg PO DAILY Qty: 10 0RF doxycycline hyclate 100 mg capsule 100 mg PO BID Qty: 10 0RF Continued ipratropium-albuterol 0.5 mg-3 mg(2.5 mg base)/3 mL solution for nebulization 3 ml inhalation Q6H PRN (Reason: wheezing) atorvastatin 10 mg tablet 10 mg PO DAILY lisinopril 10 mg tablet 10 mg PO DAILY montelukast 10 mg tablet 10 mg PO BEDTIME albuterol sulfate [Ventolin HFA] 90 mcg/actuation HFA aerosol inhaler 1 puff INHALATION Q4H PRN (Reason: wheezing) omeprazole magnesium [Prilosec OTC] 20 mg Tablet,Delayed Release (Dr/Ec) 20 mg PO DAILY@0630 cholecalciferol (vitamin D3) [Vitamin D3] 25 mcg (1,000 unit) Tablet 25 mcg PO DAILY Discharge Orders: Discharge Order (Routine); Ordered 02/08/25 Ordered By: Jacek Rankin Diet: Advance to usual diet Activity on Discharge: As tolerated Stand Alone Forms: Patient Portal Discharge page Print Language: Vietnamese Care Plan Goals: Recovery Health Concerns: COPD, alcohol dependence Plan of Treatment: Avoid alcohol, avoid smoking, prednisone 40 mg daily for 5 days and doxycycline 100 mg b.i.d. for 5 days Assessment: See above
[2025-02-08] MEDS: Nicotine 14 MG PATCH.TD24 TRANSDERMA (08:51)
[2025-02-08] MEDS: 0.9 % Sodium Chloride Flush 3 ML SYRINGE IVFLUSH (08:55)
[2025-02-08] MEDS: Magnesium Sulfate/H2O 2 GM/50 ML PIGGYBACK IV (09:08)
== END 2025-02-08 11:50 | disposition home or self-care (01) | DRG 140 ==
LOC: HO.ED 02-04 01:05 → HO.EDOVER 02-04 01:46 → HO.S3 02-04 15:37
PROVIDERS: Physician Assistant Medical; Admitting Provider Physician Assistant; Emergency Provider Emergency Medicine Emergency Medical Services; PCP Internal Medicine; Visit Provider Internal Medicine
DX: J44.1 Chronic obstructive pulmonary disease with (acute) exacerbation (principal); J96.01 Acute respiratory failure with hypoxia; J45.41 Moderate persistent asthma with (acute) exacerbation; E87.21 Acute metabolic acidosis; K70.0 Alcoholic fatty liver; F17.210 Nicotine dependence, cigarettes, uncomplicated; F10.239 Alcohol dependence with withdrawal, unspecified; E83.42 Hypomagnesemia; E83.119 Hemochromatosis, unspecified; B97.89 Other viral agents as the cause of diseases classified elsewhere; E87.6 Hypokalemia; Z20.822 Contact with and (suspected) exposure to COVID-19; Z71.6 Tobacco abuse counseling; Z79.899 Other long term (current) drug therapy
CPT/HCPCS: 36415; 71046; 80048; 80053; 80076; 80307; 82728; 82803; 83540; 83605; 83735; 83880; 84145; 84484; 85025; 85027; 85379; 85610; 87040; 87637; 93005; 99285; J0456; J0696; J1271; J1650; J2405; J2560; J2919; J3411; J3475; J3480; J7120; S9485

== ENCOUNTER → 2025-02-03 17:08 | Outpatient (BNV) | payer OTHER, SELFPAY | PROVIDERS: Admitting Provider Physician Assistant; Emergency Provider Emergency Medicine Emergency Medical Services; PCP Internal Medicine; Visit Provider Internal Medicine Cardiovascular Disease | DX: R00.0 Tachycardia, unspecified (principal) | CPT/HCPCS: 93010 ==

== ENCOUNTER → 2025-02-03 17:09 | Outpatient (BNV) | payer OTHER, SELFPAY | PROVIDERS: PCP Internal Medicine; Visit Provider Radiology Diagnostic Radiology | DX: R06.02 Shortness of breath (principal) | CPT/HCPCS: 71046 ==

== ENCOUNTER → 2025-02-04 01:40 | Outpatient (BNV) | payer OTHER, SELFPAY | PROVIDERS: Admitting Provider Physician Assistant; Emergency Provider Emergency Medicine Emergency Medical Services; PCP Internal Medicine; Visit Provider Internal Medicine | DX: F10.90 Alcohol use, unspecified, uncomplicated (principal) | CPT/HCPCS: 99499 ==

== ENCOUNTER → 2025-02-04 01:40 | Outpatient (BNV) | payer OTHER, SELFPAY | PROVIDERS: Admitting Provider Physician Assistant; Emergency Provider Emergency Medicine Emergency Medical Services; PCP Internal Medicine; Visit Provider Nurse Practitioner Psychiatric/Mental Health | DX: F10.20 Alcohol dependence, uncomplicated (principal); F10.930 Alcohol use, unspecified with withdrawal, uncomplicated | CPT/HCPCS: 99221; 99232 ==